=== PATIENT | female | born 1985 | race Caucasian/White ===

== ENCOUNTER 2024-04-04 08:30 | Outpatient (OUT) | payer OTHER, SELFPAY ==
[2024-04-04 08:53] LABS: Basophils Absolute Auto 0.1 10^3/uL (0.0-0.1); Basophils Percent Auto 1.1 % (0.2-2.0); Eosinophils Absolute Auto 0.3 10^3/uL (0.0-0.7); Eosinophils Percent Auto 4.8 % (0.9-7.0); Hematocrit 43.4 % (36.0-48.0); Hemoglobin 14.1 g/dL (12.0-16.0); Immature Granulocytes Abs Auto 0.02 10^3/uL (0.00-0.03); Immature Granulocytes Pct Auto 0.3 % (0.0-0.5); Lymphocytes Absolute Auto 2.2 10^3/uL (1.2-3.8); Lymphocytes Percent Auto 30.2 % (20.5-60.0); Mean Corpuscular HGB Conc 32.5 g/dL (29.9-35.2); Mean Corpuscular Hemoglobin 31.5 pg (26.7-34.0); Mean Corpuscular Volume 96.9 fL (81.0-99.0); Mean Platelet Volume 9.2 fL (9.5-13.5); Monocytes Absolute Auto 0.5 10^3/uL (0.3-0.8); Monocytes Percent Auto 6.7 % (1.7-12.0); Neutrophils Absolute Auto 4.1 10^3/uL (1.4-6.5); Neutrophils Percent Auto 56.9 % (43.0-75.0); Platelet Count 293 10^3/uL (150-450); Red Blood Count 4.48 10^6/uL (4.20-5.40); Red Cell Distribution Width 12.5 % (11.0-15.0); White Blood Count 7.2 10^3/uL (4.0-11.0)
[2024-04-04 09:08] LABS: Estimated Average Glucose 100 mg/dL; Glycohemoglobin A1C 5.1 % (4.5-6.2)
[2024-04-04 09:33] LABS: Alanine Aminotransferase 113 U/L (14-59); Albumin Globulin Ratio 0.9; Albumin Level 3.7 g/dL (3.4-5.0); Alkaline Phosphatase 92 U/L (46-116); Anion Gap 8.9; Aspartate Amino Transferase 41 U/L (15-37); BUN Creatinine Ratio 11.5; Bilirubin Total 0.5 mg/dL (0.2-1.0); Calcium 8.8 mg/dL (8.5-10.1); Carbon Dioxide 30.6 mmol/L (21.0-32.0); Chloride 103 mmol/L (98-107); Chol HDL Ratio 3.4; Cholesterol 200 mg/dL (<=200); Estimated GFR (African America >60 (>=60); Estimated GFR (Non-African Ame 59 (>=60); Free T3 2.41 pg/mL (2.18-3.98); Globulin 4.2 g/dL; Glucose 99 mg/dL (74-106); HDL Cholesterol 58 mg/dL (40-60); LDL Cholesterol Calculated 120.2 mg/dL; Potassium 4.5 mmol/L (3.5-5.1); Sodium 138 mmol/L (136-145); Thyroid Stimulating Hormone 0.961 uIU/mL (0.358-3.740); Total Protein 7.9 g/dL (6.4-8.2); Triglycerides 109 mg/dL (<=150); VLDL CHOLESTEROL 21.8 mg/dL
== END 2024-04-04 08:31 | disposition home or self-care (01) ==
PROVIDERS: PCP Family Medicine; Visit Provider Family Medicine
DX: Z00.00 Encounter for general adult medical examination without abnormal findings (principal)
CPT/HCPCS: 36415; 80053; 80061; 83036; 83540; 84436; 84443; 84481; 85025

== ENCOUNTER 2024-04-08 15:00 | Outpatient (REF) | payer OTHER, SELFPAY ==
[2024-04-09 16:22] LABS: Internal Control Within Normal Limits; Occult Blood Positive
== END 2024-04-08 15:01 | disposition home or self-care (01) ==
LOC: LAB 15:00
PROVIDERS: PCP Family Medicine; Visit Provider Family Medicine
DX: Z00.00 Encounter for general adult medical examination without abnormal findings (principal)
CPT/HCPCS: G0328

== ENCOUNTER 2024-04-11 09:09 | Outpatient (OUT) | payer OTHER, SELFPAY ==
--- OUTSIDE RECORDS SUMMARY | 2024-04-11 09:11 | XMS_ITS | CCD ---
Author Organization [facility] Care Team Providers Care Weight Shifter Name Role Phone INDIO, DR WESTBROOK Attending Unavailable HOY, DR WESTBROOK Admitting Unavailable HOY, DR WESTBROOK Primary Care Unavailable ASHOK CERVANTES Admitting Unavailable WEST, DR ELLEN Richards Consulting Unavailable ASHOK CERVANTES Attending Unavailable HOY, DR WESTBROOK Primary Care Unavailable BILLYASHOK Consulting Unavailable JESSICAY, DR WESTBROOK Attending Unavailable HOY, DR WESTBROOK Admitting Unavailable HOY, DR WESTBROOK Primary Care Unavailable HOY, DR WESTBROOK Consulting Unavailable HOY, DR WESTBROOK Attending Unavailable HOY, DR WESTBROOK Admitting Unavailable HOY, DR WESTBROOK Primary Care Unavailable HOY, DR WESTBROOK Consulting Unavailable HOY, DR WESTBROOK Attending Unavailable HOY, DR WESTBROOK Admitting Unavailable HOY, DR WESTBROOK Primary Care Unavailable HOY, DR WESTBROOK Consulting Unavailable HOY, DR WESTBROOK Attending Unavailable HOY, DR WESTBROOK Admitting Unavailable HOY, DR WESTBROOK Primary Care Unavailable WEST, DR ELLEN Richards Consulting Unavailable HOY, DR WESTBROOK Consulting Unavailable HOY, DR WESTBROOK Attending Unavailable HOY, DR WESTBROOK Admitting Unavailable HOY, DR WESTBROOK Primary Care Unavailable JAMIE, DR PHILIPP Jean Consulting Unavailable NOHEMY RAMIREZ, CALLIE F Referring Unavail able HOY, DARIANA M Primary Care Unavailable NOHEMY RAMIREZ, CALLIE F Attending Unavail able NOHEMY RAMIREZ, CALLIE F Referring Unavail able HOY, DARIAAN M Primary Care Unavailable HOY, DARIANA M Primary Care Unavailable NOHEMY RAMIREZ, CALLIE F Admitting Unavail able NOHEMY RAMIREZ, CALLIE F Attending Unavail able NOHEMY RAMIREZ, CALLIE F Referring Unavail able NOHEMY RAMIREZ, CALLIE F Referring Unavail able HOY, DARIANA M Primary Care Unavailable Allergies Allergy Classification Reported Allergen(s) Allergy Type Date of Onset Reaction(s) Facility (2 sources) Cefaclor Drug Allergy 01-21-2013 [facility] Repository (2 sources) celecoxib Drug Allergy 01-21-2013 [facility]ository (2 sources) Morphine Drug Allergy 02-13-2014 [facility] Repository (2 sources) Naproxen Drug Allergy 01-21-2013 [facility] Problems Active Problems Problem Classification Problem Date Documented Date Episodic/Chronic Abdominal pain (1 source) Pelvic and perineal pain; Translations: [Pelvic and perineal pain] Onset: 06-18-2023 Episodic Malaise and fatigue (4 sources) Other fatigue; Translations: [OTHER FATIGUE] Onset: 06-09-2022 Episodic Nausea and vomiting (1 source) Nausea; Translations: [Nausea] Onset: 06-18-2023 Episodic Other connective tissue disease (1 source) Pain in right arm; Translations: [PAIN IN RIGHT ARM] Onset: 04-20-2022 Episodic Other nervous system disorders (1 source) Other chronic pain; Translations: [Other chronic pain] Onset: 05-31-2023 Chronic Other nervous system disorders (1 source) Other acute postprocedural pain; Translations: [Other acute postprocedural pain] Onset: 05-31-2023 Episodic Other screening for suspected conditions (not mental disorders or infectious disease) (1 source) Abnormal results of liver function studies; Translations: [ABNORMAL RESULTS LIVR FUNCTION STDY] Onset: 06-13-2022 Episodic Spondylosis; intervertebral disc disorders; other back problems (4 sources) Radiculopathy, cervical region; Translations: [RADICULOPATHY CERVICAL REGION] Onset: 04-17-2022 Episodic Past or Other Problems Problem Classification Problem Date Documented Da te Episodic/Chronic E Codes: Natural/environment (1 source) Exposure to other specified factors, initial encounter; Translations: [EXPOSURE OTHER SPEC FACTORS INITIAL] Onset: 09-18-2021 Episodic E Codes: Unspecified (1 source) Activity, other specified; Translations: [ACTIVITY OTHER SPECIFIED] Onset: 09-18-2021 Episodic Other connective tissue disease (3 sources) Pain in left leg; Translations: [PAIN IN LEFT LEG] Onset: 09-16-2021 Episodic Sprains and strains (1 source) Strain of other muscle(s) and tendon(s) at lower leg level, left leg, initial encounter; Translations: [STRAIN OTH MSC TEND LOW LT LEG INIT] Onset: 09-18-2021 Episodic Superficial injury; contusion (1 source) Contusion of left lower leg, initial encounter; Translations: [CONTUSION LEFT LOWER LEG INITIAL] Onset: 09-18-2021 Episodic Results Test Name Value Interpretation Reference Range Facility CT PELVIS W CONTRASTon 07-04 CT PELVIS W CONTRAST EXAMINATION: CT OF THE PELVIS WITH CONTRAST 06/28/2023 5:26 pm TECHNIQUE: CT of the pelvis was performed with the administration of intravenous contrast. Multiplanar reformatted images are provided for review. Automated exposure control, iterative reconstruction, and/or weight based adjustment of the mA/kV was utilized to reduce the radiation dose to as low as reasonably achievable. COMPARISON: Ultrasound 05/14/2023. HISTORY ORDERING SYSTEM PROVIDED HISTORY: Pelvic pain TECHNOLOGIST PROVIDED HISTORY: STAT Creatinine as needed:->No pelvic pain Release to patient - Note: Delayed release will only apply to this order. Orders that are changed or resulted outside of the EHR will not respect a delayed release to MyChart.-> Recent right oophorectomy, history of prior hysterectomy and left oophorectomy. FINDINGS: Previous hysterectomy and recent right salpingo-oophorectomy . Minimal residual soft tissue stranding in the anterior abdominal wall from laparoscopic port sites. Tiny fat containing umbilical hernia. Evaluation of bowel is limited by lack of oral contrast. No CT evidence of appendicitis. No signs of bowel obstruction. Scattered nonenlarged lymph nodes without bulky adenopathy. Somewhat under distended urinary bladder at the time of scanning. There is no acute osseous abnormality. IMPRESSION: No acute abnormality identified in the pelvis. Interpreted by: Mahesh Esteban MD Kodali, Ravi P, MD Signed by: Mahesh Esteban MD 07/04/23 Final result Normal [facility] CBC with Diffon 06-18-2023 Abs. Basophil 0.08 k/uL Normal 0.00-0.20 [facility] Comment on above: Performed By: #### C DP, CP #### [facility] [address] [place] [address] Knee Bolter: Ellen Fregoso MD Abs.Imm.Granulocyte 0.05 k/uL Normal 0.00-0.30 [facility] Comment on above: Performed By: #### C DP, CP #### [address] [place], [place] [address] Knee Bolter: Ellen Fregoso MD Abs.Neutrophil (Seg) 5.11 k/uL Normal 1.50-8.10 [facility] Comment on above: Performed By: #### C DP, CP #### [address] [place], [place] [address] Knee Bolter: Ellen Fregoso MD Basophils/100 WBC (Bld) 1 % Normal 0-2 [facility] Comment on above: Performed By: #### C DP, CP #### [address] [place], [place] [address] Knee Bolter: Ellen Fregoso MD Eosinophils (Bld) [#/Vol] 0.51 10*3/uL High 0.00-0.44 [facility] Comment on above: Performed By: #### C DP, CP #### [address] [place], [place] [address] Knee Bolter: Ellen Fregoso MD Eosinophils/100 WBC (Bld) 6 % High 1-4 [facility] Comment on above: Performed By: #### C DP, CP #### [address] [place], [facility]83 Knee Bolter: Ellen Fregoso MD Erythrocyte distribution width (RBC) [Ratio] 12.0 % Normal 11.8-14.4 [facility] Comment on above: Performed By: #### C DP, CP #### [address] [place], [place] [address] Knee Bolter: Ellen Fregoso MD Hematocrit (Bld) [Volume fraction] 44.2 % Normal 36.3-47.1 [facility] Comment on above: Performed By: #### C DP, CP #### [address] [place], [facility]83 Knee Bolter: Ellen Fregoso MD Hemoglobin (Bld) [Mass/Vol] 14.4 g/dL Normal 11.9-15.1 [facility] Comment on above: Performed By: #### C DP, CP #### [facility] [address] [place], [place] [id number] Knee Bolter: Ellen Fregoso MD Immature granulocytes/100 WBC (Bld) 1 % High 0 [facility] Comment on above: Performed By: #### C DP, CP #### [address] [place] [address] Knee Bolter: Ellen Fregoso MD Lymphocytes (Bld) [#/Vol] 2.13 10*3/uL Normal 1.10-3.70 [facility] Comment on above: Performed By: #### C DP, CP #### [address] [place], [facility]83 Knee Bolter: Ellen Fregoso MD Lymphocytes/100 WBC (Bld) 25 % Normal 24-43 [facility] Comment on above: Performed By: #### C DP, CP #### [address] [place], [place] [id number] Knee Bolter: Ellen Fregoso MD MCH (RBC) [Entitic mass] 31.8 pg Normal 25.2-33.5 [facility] Comment on above: Performed By: #### C DP, CP #### [address] [place], [place] [id number] Knee Bolter: Ellen Fregoso MD MCHC (RBC) [Mass/Vol] 32.6 g/dL Normal 28.4-34.8 [facility] Comment on above: Performed By: #### C DP, CP #### [address] [place] [address] Knee Bolter: Ellen Fregoso MD MCV (RBC) [Entitic vol] 97.6 fL Normal 82.6-102.9 [facility] Comment on above: Performed By: #### C DP, CP #### [facility] [address] [place] [address] Knee Bolter: Ellen Fregoso MD Monocytes (Bld) [#/Vol] 0.64 10*3/uL Normal 0.10-1.20 [facility] Comment on above: Performed By: #### C DP, CP #### [address] [place], [place] [address] Knee Bolter: Ellen Fregoso MD Monocytes/100 WBC (Bld) 8 % Normal 3-12 [facility] Comment on above: Performed By: #### C DP, CP #### [address] [place], [facility]09 ( Knee Bolter: Ellen Fregoso MD Neutrophil (Seg) 59 % Normal 36-65 [facility] Comment on above: Performed By: #### C DP, CP #### [address] [place], [place] [address] Knee Bolter: Ellen Fregoso MD NRBC Automated 0.0 per 100 WBC Normal 0.0 [facility] Comment on above: Performed By: #### C DP, CP #### [address] [place], [place] [address] Knee Bolter: Ellen Fregoso MD Platelet mean volume (Bld) [Entitic vol] 9.0 fL Normal 8.1-13.5 [facility] Comment on above: Performed By: #### C DP, CP #### [address] [place] [address] Knee Bolter: Ellen Fregoso MD Platelets (Bld) [#/Vol] 334 10*3/uL Normal 138-453 [facility] Comment on above: Performed By: #### C DP, CP #### [facility] [address] [place], [place] [id number] Knee Bolter: Ellen Fregoso MD RBC (Bld) [#/Vol] 4.53 10*6/uL Normal 3.95-5.11 [facility] Comment on above: Performed By: #### C DP, CP #### [facility] [address] [place], [place] [phone] Knee Bolter: Ellen Fregoso MD WBC (Bld) [#/Vol] 8.5 10*3/uL Normal 3.5-11.3 [facility] Comment on above: Performed By: #### C DP, CP #### [address] [place], [place] [id number] Knee Bolter: Ellen Fregoso MD Comp Metabolic Profon 2022 Albumin [Mass/Vol] 4.3 g/dL Normal 3.5-5.2 [facility] Comment on above: Performed By: #### C DP, CP #### [address] [place], [place] [id number] Knee Bolter: Ellen Fregoso MD Albumin/Glob Ratio 1.3 Normal 1.0-2.5 [facility] Comment on above: Performed By: #### C DP, CP #### [address] [place], [place] 6[address]383 Knee Bolter: Ellne Fregoso MD Alkaline Phos 76 U/L Normal 35-104 [facility] Comment on above: Performed By: #### C DP, CP #### [facility] [address] [place], [place] 5598383 Knee Bolter: Ellen Fregoso MD ALT [Catalytic activity/Vol] 34 U/L High 5-33 [facility] Comment on above: Performed By: #### C DP, CP #### [facility] [address] [place], [place] [id number] Knee Bolter: Ellen Fregoso MD Anion gap [Moles/Vol] 11 mmol/L Normal 9-17 [facility] Comment on above: Performed By: #### C DP, CP #### [facility] [address] [place], [place] [phone] Knee Bolter: Ellen Fregoso MD AST [Catalytic activity/Vol] 24 U/L Normal <32 [facility] Comment on above: Performed By: #### C DP, CP #### [facility] [address] [place], [place] [address] Knee Bolter: Ellen Fregoso MD Bilirubin [Mass/Vol] 0.7 mg/dL Normal 0.3-1.2 [facility] Comment on above: Performed By: #### C DP, CP #### [facility] [address] [place], [place] [phone] Knee Bolter: Ellen Fregoso MD BUN/CRE Ratio 20 Normal 9-20 [facility] Comment on above: Performed By: #### C DP, CP #### [address] [place], [place] [address]83 Knee Bolter: Ellen Fregoso MD Calcium [Mass/Vol] 9.2 mg/dL Normal 8.6-10.4 [facility] Comment on above: Performed By: #### C DP, CP #### [facility] [address] [place], [place] [phone] Knee Bolter: Ellen Fregoso MD Chloride [Moles/Vol] 103 mmol/L Normal 98-107 [facility] Comment on above: Performed By: #### C DP, CP #### [facility] [address] [place], [place] [phone] Knee Bolter: Ellen Fregoso MD CO2 [Moles/Vol] 25 mmol/L Normal 20-31 [facility] Comment on above: Performed By: #### C DP, CP #### [facility] [address] [place] [address] Knee Bolter: Ellen Fregoso MD Creatinine [Mass/Vol] 0.7 mg/dL Normal 0.5-0.9 [facility] Comment on above: Performed By: #### C DP, CP #### [facility] [address] [place] [address] Knee Bolter: Ellen Fregoso MD GFR/1.73 sq M.predicted among non-blacks MDRD (S/P/Bld) [Vol rate/Area] mL/min/{1.73_m2} Normal >60 [facility] Comment on above: Result Comment: These results are not intended for use in patients <18 years of age. eGFR results are calculated without a race factor using the 2020 CKD-EPI equation. Careful clinical correlation is recommended, particularly when comparing to results calculated using previous equations. The CKD-EPI equation is less accurate in patients with extremes of muscle mass, extra-renal metabolism of creatine, excessive creatine ingestion, or following therapy that affects renal tubular secretion. Performed By: #### C DP, CP #### [facility] [address] [place] [address] [place] [address] Knee Bolter: Ellen Fregoso MD Glucose [Mass/Vol] 93 mg/dL Normal 70-99 [facility] Comment on above: Performed By: #### C DP, CP #### [facility] [address] [place] [address] Knee Bolter: Ellen Fregoso MD Potassium [Moles/Vol] 4.5 mmol/L Normal 3.7-5.3 [facility] Comment on above: Performed By: #### C DP, CP #### [facility] [address] [place] [address] Knee Bolter: Ellen Fregoso MD Protein [Mass/Vol] 7.6 g/dL Normal 6.4-8.3 [facility] Comment on above: Performed By: #### C DP, CP #### [facility] [address] [place], [place] [phone] Knee Bolter: Ellen Fregoso MD Sodium [Moles/Vol] 139 mmol/L Normal 135-144 [facility] Comment on above: Performed By: #### C DP, CP #### [facility] [address] [place], [place] [phone] Knee Bolter: Ellen Freogso MD Urea nitrogen [Mass/Vol] 14 mg/dL Normal 6-20 [facility] Comment on above: Performed By: #### C DP, CP #### [facility] [address] [place], [place] 9[address]83 Knee Bolter: Ellen Fregoso MD CBC with Diffon 06-12-2023 Abs. Basophil 0.10 k/uL Normal 0.00-0.20 [facility] Comment on above: Performed By: #### C DP, CP #### [facility] [address] [place] [address] Dr[place], [place] [phone] Knee Bolter: Ellen Fregoso MD Abs.Imm.Granulocyte 0.05 k/uL Normal 0.00-0.30 [facility] Comment on above: Performed By: #### C DP, CP #### [address] [place] [address] Knee Bolter: Ellen Fregoso MD Abs.Neutrophil (Seg) 5.13 k/uL Normal 1.50-8.10 [facility] Comment on above: Performed By: #### C DP, CP #### [facility] [address] [place], [place] [phone] Knee Bolter: Ellen Fregoso MD Basophils/100 WBC (Bld) 1 % Normal 0-2 [facility] Comment on above: Performed By: #### C DP, CP #### [facility] [address] [place], [place] [phone] Knee Bolter: Ellen Fregoso MD Eosinophils (Bld) [#/Vol] 0.42 10*3/uL Normal 0.00-0.44 [facility] Comment on above: Performed By: #### C DP, CP #### [address] [place], [place] [address]383 Knee Bolter: Ellen Fregoso MD Eosinophils/100 WBC (Bld) 5 % High 1-4 [facility] Comment on above: Performed By: #### C DP, CP #### [address] [place], [place] [address] Knee Bolter: Ellen Fregoso MD Erythrocyte distribution width (RBC) [Ratio] 11.8 % Normal 11.8-14.4 [facility] Comment on above: Performed By: #### C DP, CP #### [address] [place], [facility]83 Knee Bolter: Ellen Fregoso MD Hematocrit (Bld) [Volume fraction] 42.6 % Normal 36.3-47.1 [facility] Comment on above: Performed By: #### C DP, CP #### [address] [place], [place] [address] Knee Bolter: Ellen Fregoso MD Hemoglobin (Bld) [Mass/Vol] 13.8 g/dL Normal 11.9-15.1 [facility] Comment on above: Performed By: #### C DP, CP #### [address] [place], [facility]83 Knee Bolter: Ellen Fregoso MD Immature granulocytes/100 WBC (Bld) 1 % High 0 [facility] Comment on above: Performed By: #### C DP, CP #### [address] [place] [address] Knee Bolter: Ellen Fregoso MD Lymphocytes (Bld) [#/Vol] 2.82 10*3/uL Normal 1.10-3.70 [facility] Comment on above: Performed By: #### C DP, CP #### [facility] [address] [place], [place] [address] Knee Bolter: Ellen Fregoso MD Lymphocytes/100 WBC (Bld) 31 % Normal 24-43 [facility] Comment on above: Performed By: #### C DP, CP #### [address] [place], [place] [address] Knee Bolter: Ellen Fregoso MD MCH (RBC) [Entitic mass] 31.7 pg Normal 25.2-33.5 [facility] Comment on above: Performed By: #### C DP, CP #### [address] [place], [facility]41 ( Knee Bolter: Ellen Fregoso MD MCHC (RBC) [Mass/Vol] 32.4 g/dL Normal 28.4-34.8 [facility] Comment on above: Performed By: #### C DP, CP #### [address] [place], [place] [address] Knee Bolter: Ellen Fregoso MD MCV (RBC) [Entitic vol] 97.9 fL Normal 82.6-102.9 [facility] Comment on above: Performed By: #### C DP, CP #### [address] [place], [place] [address] Knee Bolter: Ellen Fregoso MD Monocytes (Bld) [#/Vol] 0.71 10*3/uL Normal 0.10-1.20 [facility] Comment on above: Performed By: #### C DP, CP #### [address] [place], [facility]83 Knee Bolter: Ellen Fregoso MD Monocytes/100 WBC (Bld) 8 % Normal 3-12 [facility] Comment on above: Performed By: #### C DP, CP #### [facility] [address] [place], [place] [phone] Knee Bolter: Ellen Fregoso MD Neutrophil (Seg) 54 % Normal 36-65 [facility] Comment on above: Performed By: #### C DP, CP #### [facility] [address] [place], [place] [phone] Knee Bolter: Ellen Fregoso MD NRBC Automated 0.0 per 100 WBC Normal 0.0 [facility] Comment on above: Performed By: #### C DP, CP #### [facility] [address] [place], [place] [phone] Knee Bolter: Ellen Fregoso MD Platelet mean volume (Bld) [Entitic vol] 9.6 fL Normal 8.1-13.5 [facility] Comment on above: Performed By: #### C DP, CP #### [address] [place], [place] 258[address]83 Knee Bolter: Ellen Fregoso MD Platelets (Bld) [#/Vol] 309 10*3/uL Normal 138-453 [facility] Comment on above: Performed By: #### C DP, CP #### [address] [place], [place] 040[address]83 Knee Bolter: Ellen Fregoso MD RBC (Bld) [#/Vol] 4.35 10*6/uL Normal 3.95-5.11 [facility] Comment on above: Performed By: #### C DP, CP #### [address] [place], [place] 03[address]83 Knee Bolter: Ellen Fregoso MD WBC (Bld) [#/Vol] 9.2 10*3/uL Normal 3.5-11.3 [facility] Comment on above: Performed By: #### C DP, CP #### [address] [place], [place] [phone] Knee Bolter: Ellen Fregoso MD Comp Metabolic Profon 2022 Albumin [Mass/Vol] 4.5 g/dL Normal 3.5-5.2 [facility] Comment on above: Performed By: #### C DP, CP #### [facility] [address] [place] [address] Knee Bolter: Ellen Fregoso MD Albumin/Glob Ratio 1.5 Normal 1.0-2.5 [facility] Comment on above: Performed By: #### C DP, CP #### [facility] [address] [place], [place] [phone] Knee Bolter: Ellen Fregoso MD Alkaline Phos 74 U/L Normal 35-104 [facility] Comment on above: Performed By: #### C DP, CP #### [facility] [address] [place], [place] 669[address]83 Knee Bolter: Ellen Fregoso MD ALT [Catalytic activity/Vol] 34 U/L High 5-33 [facility] Comment on above: Performed By: #### C DP, CP #### [facility] [address] [place] [address] [place] [place], [place] 565[address]83 Knee Bolter: Ellen Fregoso MD Anion gap [Moles/Vol] 9 mmol/L Normal 9-17 [facility] Comment on above: Performed By: #### C DP, CP #### [facility] [address] [place], [place] 347[address]83 Knee Bolter: Ellen Fregoso MD AST [Catalytic activity/Vol] 22 U/L Normal <32 [facility] Comment on above: Performed By: #### C DP, CP #### [facility] [address] [place], [place] 458[address]83 Knee Bolter: Ellen Fregoso MD Bilirubin [Mass/Vol] 0.5 mg/dL Normal 0.3-1.2 [facility] Comment on above: Performed By: #### C DP, CP #### [facility] [address] [place] [address] Knee Bolter: Ellen Fregoso MD BUN/CRE Ratio 20 Normal 9-20 [facility] Comment on above: Performed By: #### C DP, CP #### [facility] [address] [place], [place] [address] Knee Bolter: Ellen Fregoso MD Calcium [Mass/Vol] 9.1 mg/dL Normal 8.6-10.4 [facility] Comment on above: Performed By: #### C DP, CP #### [facility] [address] [place], [place] 284[address]83 Knee Bolter: Ellen Fregoso MD Chloride [Moles/Vol] 103 mmol/L Normal 98-107 [facility] Comment on above: Performed By: #### C DP, CP #### [facility] [address] [place], [place] [address]83 Knee Bolter: Ellen Fregoso MD CO2 [Moles/Vol] 26 mmol/L Normal 20-31 [facility] Comment on above: Performed By: #### C DP, CP #### [facility] [address] [place], [place] [address]83 Knee Bolter: Ellen Fregoso MD Creatinine [Mass/Vol] 0.7 mg/dL Normal 0.5-0.9 [facility] Comment on above: Performed By: #### C DP, CP #### [facility] [address] [place] [address] Knee Bolter: Ellen Fregoso MD GFR/1.73 sq M.predicted among non-blacks MDRD (S/P/Bld) [Vol rate/Area] mL/min/{1.73_m2} Normal >60 [facility] Comment on above: Result Comment: These results are not intended for use in patients <18 years of age. eGFR results are calculated without a race factor using the 2020 CKD-EPI equation. Careful clinical correlation is recommended, particularly when comparing to results calculated using previous equations. The CKD-EPI equation is less accurate in patients with extremes of muscle mass, extra-renal metabolism of creatine, excessive creatine ingestion, or following therapy that affects renal tubular secretion. Performed By: #### C DP, CP #### [facility] [address] [place] [address] [place]. [place], [place] [id number] Knee Bolter: Ellen Fregoso MD Glucose [Mass/Vol] 81 mg/dL Normal 70-99 [facility] Comment on above: Performed By: #### C DP, CP #### [address] [place] [address] Knee Bolter: Ellen Fregoso MD Potassium [Moles/Vol] 4.5 mmol/L Normal 3.7-5.3 [facility] Comment on above: Performed By: #### C DP, CP #### [address] [place] [address] Knee Bolter: Ellen Fregoso MD Protein [Mass/Vol] 7.5 g/dL Normal 6.4-8.3 [facility] Comment on above: Performed By: #### C DP, CP #### [address] [place], [place] [id number] Knee Bolter: Ellen Fregoso MD Sodium [Moles/Vol] 138 mmol/L Normal 135-144 [facility] Comment on above: Performed By: #### C DP, CP #### [facility] [address] [place] [address] [place] [address] Knee Bolter: Ellen Fregoso MD Urea nitrogen [Mass/Vol] 14 mg/dL Normal 6-20 [facility] Comment on above: Performed By: #### C DP, CP #### [address] [place], [place] [id number] Knee Bolter: Ellen Fregoso MD UA w/Reflex Cultureon 2022 Bilirubin, SemiQt,Ur Negative Normal NEG [facility] Comment on above: Performed By: #### U MICAO, UAX #### [facility] [address] [place], [place] [id number] Knee Bolter: Ellen Fregoso MD Blood, Urine Negative Normal NEG [facility] Comment on above: Performed By: #### U MICAO, UAX #### [facility] [address] [place], [place] [id number] Knee Bolter: Ellen Fregoso MD Clarity (U) Clear Normal CLEAR [facility] Comment on above: Performed By: #### U MICAO, UAX #### [facility] [address] [place] [address] Dr. [place], [place] [id number] Knee Bolter: Ellen Fregoso MD Color (U) Yellow Normal YEL [facility] Comment on above: Performed By: #### U MICAO, UAX #### [facility] [address] [place] [address] Dr. [place], [place] [id number] Knee Bolter: Ellen Fregoso MD Glucose Ql (U) Negative Normal NEG [facility] Comment on above: Performed By: #### U MICAO, UAX #### [address] [place] [address] Knee Bolter: Ellen Fregoso MD Ketones Ql (U) Negative Normal NEG [facility] Comment on above: Performed By: #### U MICAO, UAX #### [facility] [address] [place] [address] Dr. [place], [place] [id number] Knee Bolter: Ellen Fregoso MD Leukocyte esterase Test strip Ql (U) Negative Normal NEG [facility] Comment on above: Performed By: #### U MICAO, UAX #### [facility] [address] [place] [address] Dr. [place], [place] [id number] Knee Bolter: Ellen Fregoso MD Nitrite,Ur Negative Normal [facility] Comment on above: Performed By: #### U MICAO, UAX #### [facility] [address] [place], [place] [id number] Knee Bolter: Ellen Fregoso MD PH,Ur 6.0 Normal 5.0-9.0 [facility] Comment on above: Performed By: #### U MICAO, UAX #### [facility] [address] [place], [facility] Knee Bolter: Ellen Fregoso MD Protein Ql (U) Negative Normal NEG [facility] Comment on above: Performed By: #### U MICAO, UAX #### [facility] [address] [place], [facility]83 Knee Bolter: Ellen Fregoso MD Spec. [place],Ur 1.020 Normal 1.010-1.020 [facility] Comment on above: Performed By: #### U MICAO, UAX #### [facility] [address] [place] [address] Dr. [place], [facility]83 Knee Bolter: Ellen Fregoso MD Urobilinogen,Ur Normal Normal 0.0-1.0 [facility] Comment on above: Performed By: #### U MICAO, UAX #### [address] [place], [facility]83 Knee Bolter: Ellen Fregoso MD Urinalysis,Microon 3 Bacteria 1+ Abnormal NONE [facility] Comment on above: Performed By: #### U MICAO, UAX #### [facility] [address] [place] [address] Knee Bolter: Ellen Fregoso MD Epithelial cells LM Ql (Urine sed) 2 TO 5 Normal 0-25 [facility] Comment on above: Performed By: #### U MICAO, UAX #### [facility] [address] [place], [facility]83 Knee Bolter: Ellen Fregoso MD Mucus Strands TRACE Abnormal NONE [facility] Comment on above: Performed By: #### U MICAO, UAX #### [facility] [address] [place] [address] Knee Bolter: Ellen Fregoso MD Urine RBC's None Normal 0-2 [facility] Comment on above: Performed By: #### U MICAO, UAX #### [facility] [address] [place] [address] Knee Bolter: Ellen Fregoso MD Urine WBC's 0 TO 2 Normal 0-5 [facility] Comment on above: Performed By: #### U MICAO, UAX #### [facility] [address] 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 Chelsey Matos. 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 AND CYST Gross Description ELMER DURAN, RIGHT OVARY AND CYST Received in formalin are fragments of wrinkled pink-españa tissue consistent with ovary including cystic tissue, 7-grams and 4.5 x 3.8 x 1.5 cm in aggregate. External surfaces appear wrinkled and pink-españa with no excrescences. Sectioning reveals rubbery pink-españa cut surfaces and there are no excrescences in the cystic areas. Creative Services Manager sections are submitted in 3cs. cd LRD/kb2:05/31/2023 Microscopic Description 3 RAYSHAWN reviewed. Microscopic evaluation performed. Processing Lab: [address] [id number] Interpretation Performed at [facility] [address] [place] [address] SURGICAL PATHOLOGY CONSULTATION Patient Name: ELMER DURAN [facility] Rec: [id number] [facility] ANATOMIC PATHOLOGY [address] [place] [phone] Normal [facility] CBC AUTO DIFFon 06-09-2022 BASO # 0.1 103/ul Normal 0.0-0.1 [facility] Comment on above: Performed By: #### C BC #### [facility] [address] [address] [address] Valeria Stacy Basophils/100 WBC (Bld) 0.8 % Normal 0.2-2.0 [facility] Comment on above: Performed By: #### C BC #### [facility] [address] [place] [address] Dr. Valeria Stacy EO # 0.1 103/ul Normal 0.0-0.7 [facility] Comment on above: Performed By: #### C BC #### [facility] [address] [place] [address] Dr. Valeria Stacy Eosinophils/100 WBC (Bld) 0.9 % Normal 0.9-7.0 [facility] Comment on above: Performed By: #### C BC #### [facility] [address] [place] [address] Dr. Valeria Stacy Erythrocyte distribution width (RBC) [Ratio] 12.6 % Normal 11.0-15.0 [facility] Comment on above: Performed By: #### C BC #### [facility] [address] [place] [address] Dr. Valeria Stacy Hematocrit (Bld) [Volume fraction] 42.4 % Normal 36.0-48.0 [facility] Comment on above: Performed By: #### C BC #### [facility] [address] [place] [address] Dr. Valeria Stacy Hemoglobin (Bld) [Mass/Vol] 13.8 g/dL Normal 12.0-16.0 [facility] Comment on above: Performed By: #### C BC #### [facility] [address] [address] [address] Valeria Stacy IG # 0.10 10e3/ul Critically high 0.00-0.03 [facility] Comment on above: Performed By: #### C BC #### [facility] [address] [address] [address] Valeria Stacy IG % 0.9 % Critically high 0.0-0.5 [facility] Comment on above: Performed By: #### C BC #### [facility] [address] [address] [address] Valeria Stacy LYMPH # 2.3 103/ul Normal 1.2-3.8 [facility] Comment on above: Performed By: #### C BC #### [facility] [address] [place] [address] Dr. Valeria Stacy Lymphocytes/100 WBC (Bld) 20.2 % Critically low 20.5-60.0 [facility] Comment on above: Performed By: #### C BC #### [facility] [address] [place] [address] Dr. Valeria Stacy MANUAL DIFF REQ NO Normal [facility] Comment on above: Performed By: #### C BC #### [facility] [address] [place] [address] Dr. Valeria Stacy MCH (RBC) [Entitic mass] 31.2 pg Normal 26.7-34.0 [facility] Comment on above: Performed By: #### C BC #### [facility] [address] [place] [address] Dr. Valeria Stacy MCHC (RBC) [Mass/Vol] 32.5 g/dL Normal 29.9-35.2 [facility] Comment on above: Performed By: #### C BC #### [facility] [address] [place] [address] Dr. Valeria Stacy MCV (RBC) [Entitic vol] 95.7 fL Normal 81.0-99.0 [facility] Comment on above: Performed By: #### C BC #### [facility] [address] [place] [address] Dr. Valeria Stacy MONO # 0.7 103/ul Normal 0.3-0.8 [facility] Comment on above: Performed By: #### C BC #### [facility] [address] [place] [address] Dr. Valeria Stacy Monocytes/100 WBC (Bld) 6.2 % Normal 1.7-12.0 [facility] Comment on above: Performed By: #### C BC #### [facility] [address] [place] [address] Dr. Valeria tSacy NEUT # 8.2 103/ul Critically high 1.4-6.5 [facility] Comment on above: Performed By: #### C BC #### [facility] [address] [place] [address] Dr. Valeria Stacy Neutrophils/100 WBC (Bld) 71.0 % Normal 43.0-75.0 [facility] Comment on above: Performed By: #### C BC #### [facility] [address] [place] [address] Dr. Valeria Stacy Platelet mean volume (Bld) [Entitic vol] 8.5 fL Critically low 9.5-13.5 [facility] Comment on above: Performed By: #### C BC #### [facility] [address] [place] [address] Dr. Valeria Stacy PLT 344 103/ul Normal 150-450 [facility] Comment on above: Performed By: #### C BC #### [facility] [address] [place] [address] Dr. Valeria Stacy RBC 4.43 106/ul Normal 4.20-5.40 [facility] Comment on above: Performed By: #### C BC #### [facility] [address] [place] [address] Dr. Valeria Stacy WBC 11.5 103/ul Critically high 4.0-11.0 The [facility] Comment on above: Performed By: #### C BC #### [facility] [address] [place] [address] Dr. Valeria Stacy FREE T3on 06-09-2022 FREE T3 2.26 pg/mlL Normal 2.18-3.98 [facility] Comment on above: Performed By: #### F T3, CMP, TSH, T4 ####[facility] [address] [address]Dr. Valeria Stacy PROF 14(COMP METB)on 022 Albumin [Mass/Vol] 3.5 g/dL Normal 3.4-5.0 [facility] Comment on above: Performed By: #### F T3, CMP, TSH, T4 ####[facility] [address] [address]Dr. Valeria Stacy Albumin/Globulin [Mass ratio] 0.9 {ratio} Normal [facility] Comment on above: Performed By: #### F T3, CMP, TSH, T4 ####[facility] [address] [address]Dr. Valeria Stacy ALP [Catalytic activity/Vol] 83 U/L Normal 46-116 [facility] Comment on above: Performed By: #### F T3, CMP, TSH, T4 ####[facility] [address] [address]Dr. Valeria Stacy ALT [Catalytic activity/Vol] 59 U/L Normal 14-59 [facility] Comment on above: Performed By: #### F T3, CMP, TSH, T4 ####[facility] [address] [address]Dr. Valeria Stacy Anion gap [Moles/Vol] 11.7 mmol/L Normal [facility] Comment on above: Performed By: #### F T3, CMP, TSH, T4 ####[facility] [address] [address]Dr. Valeria Stacy AST [Catalytic activity/Vol] 22 U/L Normal 15-37 [facility] Comment on above: Performed By: #### F T3, CMP, TSH, T4 ####[facility] [address] [address]Dr. Valeria Stacy Bilirubin [Mass/Vol] 0.5 mg/dL Normal 0.2-1.0 [facility] Comment on above: Performed By: #### F T3, CMP, TSH, T4 ####[facility] [address] [address]Dr. Valeria Stacy Calcium [Mass/Vol] 9.1 mg/dL Normal 8.5-10.1 [facility] Comment on above: Performed By: #### F T3, CMP, TSH, T4 ####[facility] [address] [address]Dr. Valeria Stacy Chloride [Moles/Vol] 104 mmol/L Normal 98-107 [facility] Comment on above: Performed By: #### F T3, CMP, TSH, T4 ####[facility] [address] [place], [place] [address]Dr. Valeria Stacy CO2 [Moles/Vol] 26.4 mmol/L Normal 21.0-32.0 The [facility] Comment on above: Performed By: #### F T3, CMP, TSH, T4 ####[facility] [address] [place], [place] [address]Dr. Valeria Stacy Creatinine [Mass/Vol] 0.85 mg/dL Normal 0.55-1.02 [facility] Comment on above: Performed By: #### F T3, CMP, TSH, T4 ####[facility] [address] [address]Dr. Valeria Stacy EGFR-AF SOLOMON ISLANDER >60 Normal >=60 The [facility] Comment on above: Performed By: #### F T3, CMP, TSH, T4 ####[facility] [address] [address]Dr. Valeria Stacy EGFR-NON AF [place] ISLANDER >60 Normal >=60 [facility] Comment on above: Performed By: #### F T3, CMP, TSH, T4 ####[facility] [address] [address]Dr. Valeria Stacy Globulin (S) [Mass/Vol] 4.0 g/dL Normal [facility] Comment on above: Performed By: #### F T3, CMP, TSH, T4 ####[facility] [address] [id number]. Valeria Stacy Glucose [Mass/Vol] 85 mg/dL Normal 74-106 The [facility] Comment on above: Performed By: #### F T3, CMP, TSH, T4 ####[facility] [address] [address]Dr. Valeria Stacy Potassium [Moles/Vol] 4.1 mmol/L Normal 3.5-5.1 [facility] Comment on above: Performed By: #### F T3, CMP, TSH, T4 ####[facility] [address] [id number]. Valeria Stacy Protein [Mass/Vol] 7.5 g/dL Normal 6.4-8.2 [facility] Comment on above: Performed By: #### F T3, CMP, TSH, T4 ####[facility] [address] [address]Dr. Valeria Stacy Sodium [Moles/Vol] 138 mmol/L Normal 136-145 [facility] Comment on above: Performed By: #### F T3, CMP, TSH, T4 ####[facility] [address] [address]Dr. Valeria Stacy Urea nitrogen [Mass/Vol] 12.0 mg/dL Normal 7.0-18.0 [facility] Comment on above: Performed By: #### F T3, CMP, TSH, T4 ####[facility] [address] [address]Dr. Valeria Stacy Urea nitrogen/Creatinine [Mass ratio] 14.1 mg/mg Normal [facility] Comment on above: Performed By: #### F T3, CMP, TSH, T4 ####[facility] [address] [address]Dr. Valeria Stacy T4on 06-09-2022 T4 [Mass/Vol] 7.90 ug/dL Normal 4.80-13.90 The [facility] Comment on above: Performed By: #### F T3, CMP, TSH, T4 ####[facility] [address] [place], [place] [address]Dr. Valeria Stacy TSHon 06-09-2022 TSH 0.604 uIU/mL Normal 0.358-3.740 [facility] Comment on above: Performed By: #### F T3, CMP, TSH, T4 ####[facility] [address] [place], [place] [address]Ro. Valeria Stacy MRI CSPINE WO CONon 04-17-20 MRI CSPINE WO CON EXAMINATION: MRI CSPINE WO CON HISTORY: Cervical radiculopathy COMPARISON: No relevant comparison available. TECHNIQUE: A variety of imaging planes and parameters were utilized for visualization of suspected pathology. FINDINGS: CRANIOCERVICAL AREA: Normal foramen magnum with no Chiari malformation. PARASPINAL AREA: Normal with no visible mass. BONES: Normal alignment with no acute fracture or spondylolisthesis. CORD: Normal caliber, contour, and signal intensity. CERVICAL DISC LEVELS: C2-C3: No significant disc/facet abnormality, spinal stenosis, or foraminal stenosis. C3-C4: Early degenerative disc disease is present without focal protrusion or neural impingement. C4-C5: Early degenerative disc disease is present without focal protrusion or neural impingement. C5-C6: Early degenerative disc disease is present without focal protrusion or neural impingement. C6-C7: No significant disc/facet abnormality, spinal stenosis, or foraminal stenosis. C7-T1:. No significant disc/facet abnormality, spinal stenosis, or foraminal stenosis. IMPRESSION: Minimal discogenic changes at C3-4, C4-5 and C5-C6 with no central or foraminal stenosis Electronically authenticated by: ELLEN MENDEZ Date: 2022-04-17 19:34 Normal [facility] XR CSPINE MIN 4 VIEWSon 03-22 XR CSPINE MIN 4 VIEWS EXAMINATION: XR CSPINE MIN 4 VIEWS HISTORY: Cervical radiculopathy ; cervical pain radiating into right arm COMPARISON: No relevant comparison available. FINDINGS: BONES: No significant spondylosis, scoliosis, fracture, or visible bony lesion. DISC SPACES: No significant disc height narrowing, subluxation, or endplate abnormality. PARASPINOUS: Negative. No paraspinous abnormality is seen. OTHER: Negative. IMPRESSION: 1. No appreciable acute abnormality or significant degenerative changes. 2. Examination of the lower cervical spine is slightly limited by body habitus. Electronically authenticated by: PHILIPP AYALA Date: 2022-04-05 07:06 Normal [facility] INSULINon 02-19-2022 Insulin 30.3 uIU/mL Critically high 2.6-24.9 The [facility] Comment on above: Performed By: #### I NSULIN ####[facility] [address] [address]Dr. Valeria Stacy CBC AUTO DIFFon 02-17-2022 BASO # 0.1 103/ul Normal 0.0-0.1 [facility] Comment on above: Performed By: #### C BC ####[facility] [address] [address]Dr. Valeria Stacy Basophils/100 WBC (Bld) 1.2 % Normal 0.2-2.0 [facility] Comment on above: Performed By: #### C BC ####[facility] [address] [place], [place] [address]Dr. Valeria Stacy EO # 0.5 103/ul Normal 0.0-0.7 [facility] Comment on above: Performed By: #### C BC ####[facility] [address] [place], [place] [address]Dr. Valeria Stacy Eosinophils/100 WBC (Bld) 6.6 % Normal 0.9-7.0 [facility] Comment on above: Performed By: #### C BC ####[facility] [address] [place], [place] [address]Dr. Valeria Stacy Erythrocyte distribution width (RBC) [Ratio] 12.6 % Normal 11.0-15.0 [facility] Comment on above: Performed By: #### C BC ####[facility] [address] [place], [place] [address]DrSvitlana Stacy Hematocrit (Bld) [Volume fraction] 41.8 % Normal 36.0-48.0 [facility] Comment on above: Performed By: #### C BC ####[facility] [address] [place], [place] [address]Dr. Valeria Stacy Hemoglobin (Bld) [Mass/Vol] 13.7 g/dL Normal 12.0-16.0 [facility] Comment on above: Performed By: #### C BC ####[facility] [address] [address]Dr. Valeria Stacy IG # 0.03 10e3/ul Normal 0.00-0.03 [facility] Comment on above: Performed By: #### C BC ####[facility] [address] [address]Dr. Valeria Stacy IG % 0.4 % Normal 0.0-0.5 [facility] Comment on above: Performed By: #### C BC ####[facility] [address] [place], [place] [address]Dr. Valeria Stacy LYMPH # 3.1 103/ul Normal 1.2-3.8 [facility] Comment on above: Performed By: #### C BC ####[facility] [address] [place], [place] [address]Dr. Valeria Stacy Lymphocytes/100 WBC (Bld) 38.7 % Normal 20.5-60.0 [facility] Comment on above: Performed By: #### C BC ####[facility] [address] [address]Dr. Valeria Stacy MANUAL DIFF REQ NO Normal [facility] Comment on above: Performed By: #### C BC ####[facility] [address] [address]Dr. Valeria Stacy MCH (RBC) [Entitic mass] 31.2 pg Normal 26.7-34.0 [facility] Comment on above: Performed By: #### C BC ####[facility] [address] [place], [place] [address]Dr. Valeria Stacy MCHC (RBC) [Mass/Vol] 32.8 g/dL Normal 29.9-35.2 [facility] Comment on above: Performed By: #### C BC ####[facility] [address] [address]Dr. Valeria Stacy MCV (RBC) [Entitic vol] 95.2 fL Normal 81.0-99.0 [facility] Comment on above: Performed By: #### C BC ####[facility] [address] [id number]. Valeria Stacy MONO # 0.7 103/ul Normal 0.3-0.8 [facility] Comment on above: Performed By: #### C BC ####[facility] [address] [id number]. Valeria Stacy Monocytes/100 WBC (Bld) 8.6 % Normal 1.7-12.0 [facility] Comment on above: Performed By: #### C BC ####[facility] [address] [place], [place] [id number]. Valeria Stacy NEUT # 3.6 103/ul Normal 1.4-6.5 [facility] Comment on above: Performed By: #### C BC ####[facility] [address] [place], [place] [address]Dr. Valeria Stacy Neutrophils/100 WBC (Bld) 44.5 % Normal 43.0-75.0 [facility] Comment on above: Performed By: #### C BC ####[facility] [address] [place], [place] [id number]. Valeria Stacy Platelet mean volume (Bld) [Entitic vol] 8.6 fL Critically low 9.5-13.5 [facility] Comment on above: Performed By: #### C BC ####[facility] [address] [place] [id number]. Valeria Stacy PLT 325 103/ul Normal 150-450 [facility] Comment on above: Performed By: #### C BC ####[facility] [address] [place], [place] [id number]. Valeria Stacy RBC 4.39 106/ul Normal 4.20-5.40 [facility] Comment on above: Performed By: #### C BC ####[facility] [address] [place] [id number]. Valeria Stacy WBC 8.0 103/ul Normal 4.0-11.0 [facility] Comment on above: Performed By: #### C BC ####[facility] [address] [place] [address]Dr. Valeria Stacy FREE THYROXINE INDEX T7on FTI 2.26 Normal 1.30-4.50 [facility] Comment on above: Performed By: #### L IPID, T7, CMP, TSH #### [facility] [address] [address] [address] Valeria Stacy T3U 31.0 % Normal 30.0-39.0 [facility] Comment on above: Performed By: #### L IPID, T7, CMP, TSH #### [facility] [address] [address] [address] Valeria Stacy T4 [Mass/Vol] 7.30 ug/dL Normal 4.80-13.90 [facility] Comment on above: Performed By: #### L IPID, T7, CMP, TSH #### [facility] [address] [place] [address] Dr. Valeria Stacy GLYCOHEMOGLOBIN A1Con 2021 ADA RECOMMENDATION SEE BELOW Normal [facility] Comment on above: Result Comment: ADA RECOMMENDED LIMIT 4.0 - 6.0 ADA THERAPEUTIC TARGET < 7.0 ACTION SUGGESTED > 7.0 Performed By: #### A 1C #### [facility] [address] [place] [address] Dr. Valeria Stacy Glucose [Mass/Vol] 111 mg/dL Normal [facility] Comment on above: Performed By: #### A 1C #### [facility] [address] [place] [address] Dr. Valeria Stacy HbA1c (Bld) [Mass fraction] 5.5 % Normal 4.5-6.2 [facility] Comment on above: Performed By: #### A 1C #### [facility] [address] [place] [address] Dr. Valeria Stacy IRONon 02-17-2022 Iron [Mass/Vol] 114.0 ug/dL Normal 50.0-170.0 [facility] Comment on above: Performed By: #### I ROWENA #### [facility] [address] [address] [address] Valeria Stacy LIPID PROFILEon 02-17-2022 CHOL-HDL RATIO NORM SEE BELOW Normal [facility] Comment on above: Result Comment: 3.3 - 4.4 LOW RISK 4.4 - 7.1 AVERAGE RISK 7.1 - 11.0 MODERATE RISK >11.0 HIGH RISK Performed By: #### L IPID, T7, CMP, TSH #### [facility] [address] [address] [address] Valeria Stacy Cholesterol [Mass/Vol] 175 mg/dL Normal <=200 [facility] Comment on above: Performed By: #### L IPID, T7, CMP, TSH #### [facility] [address] [address] [address] Valeria Stacy Cholesterol in HDL [Mass/Vol] 45 mg/dL Normal 40-60 [facility] Comment on above: Performed By: #### L IPID, T7, CMP, TSH #### [facility] [address] [address] [address] Valeria Stacy Cholesterol in LDL [Mass/Vol] 89.0 mg/dL Normal [facility] Comment on above: Performed By: #### L IPID, T7, CMP, TSH #### [facility] [address] [address] [address] Valeria Stacy Cholesterol.total/Cho lesterol in HDL [Mass ratio] 3.9 {ratio} Normal [facility] Comment on above: Performed By: #### L IPID, T7, CMP, TSH #### [facility] [address] [address] [address] Valeria Stacy HDL NORMAL > or = 60 mg/dl - LO W CARDIOVASCULAR RISK <40 mg/dl - HIGH CARDIOVASCULAR RISK Normal [facility] Comment on above: Performed By: #### L IPID, T7, CMP, TSH #### [facility] [address] [address] [address] Valeria Stacy LDL CALC NORMAL SEE BELOW Normal [facility] Comment on above: Result Comment: <100 mg/dl OPTIMAL 100 - 129 mg/dl NEAR OR ABOVE OPTIMAL 130 - 159 mg/dl BORDERLINE HIGH 160 - 189 mg/dl HIGH >190 mg/dl VERY HIGH Performed By: #### L IPID, T7, CMP, TSH #### [facility] [address] [address] [address] Valeria Stacy Triglyceride [Mass/Vol] 205 mg/dL Critically high <=150 [facility] Comment on above: Performed By: #### L IPID, T7, CMP, TSH #### [facility] [address] [address] [address] Valeria Stacy VLDL CALC 41.0 mg/dL Normal [facility] Comment on above: Performed By: #### L IPID, T7, CMP, TSH #### [facility] [address] [address] [address] Valeria Stacy PROF 14(COMP METB)on 022 Albumin [Mass/Vol] 3.6 g/dL Normal 3.4-5.0 [facility] Comment on above: Performed By: #### L IPID, T7, CMP, TSH #### [facility] [address] [address] [address] Valeria Stacy Albumin/Globulin [Mass ratio] 0.8 {ratio} Normal [facility] Comment on above: Performed By: #### L IPID, T7, CMP, TSH #### [facility] [address] [place] [address] Dr. Valeria Stacy ALP [Catalytic activity/Vol] 73 U/L Normal 46-116 [facility] Comment on above: Performed By: #### L IPID, T7, CMP, TSH #### [facility] [address] [address] [address] Valeria Stacy ALT [Catalytic activity/Vol] 115 U/L Critically high 14-59 [facility] Comment on above: Performed By: #### L IPID, T7, CMP, TSH #### [facility] [address] [address] [address] Valeria Stacy Anion gap [Moles/Vol] 12.1 mmol/L [facility] Comment on above: Performed By: #### L IPID, T7, CMP, TSH #### [facility] [address] [place] [address] Dr. Valeria Stacy AST [Catalytic activity/Vol] 36 U/L Normal 15-37 [facility] Comment on above: Performed By: #### L IPID, T7, CMP, TSH #### [facility] [address] [place] [address] Dr. Valeria Stacy Bilirubin [Mass/Vol] 0.6 mg/dL Normal 0.2-1.0 [facility] Comment on above: Performed By: #### L IPID, T7, CMP, TSH #### [facility] [address] [place] [address] Dr. Valeria Stacy Calcium [Mass/Vol] 8.6 mg/dL Normal 8.5-10.1 [facility] Comment on above: Performed By: #### L IPID, T7, CMP, TSH #### [facility] [address] [place] [address] Dr. Valeria Stacy Chloride [Moles/Vol] 107 mmol/L Normal 98-107 [facility] Comment on above: Performed By: #### L IPID, T7, CMP, TSH #### [facility] [address] [place] [address] Dr. Valeria Stacy CO2 [Moles/Vol] 24.9 mmol/L Normal 21.0-32.0 The [facility] Comment on above: Performed By: #### L IPID, T7, CMP, TSH #### [facility] [address] [place] [address] Dr. Valeria Stacy Creatinine [Mass/Vol] 0.93 mg/dL Normal 0.55-1.02 [facility] Comment on above: Performed By: #### L IPID, T7, CMP, TSH #### [facility] [address] [place] [address] Dr. Valeria Stacy EGFR-AF [place] >60 Normal >=60 The [facility] Comment on above: Performed By: #### L IPID, T7, CMP, TSH #### [facility] [address] [place] [address] Dr. Valeria Stacy EGFR-NON AF [place] >60 Normal >=60 [facility] Comment on above: Performed By: #### L IPID, T7, CMP, TSH #### [facility] [address] [address] [address] Valeria Stacy Globulin (S) [Mass/Vol] 4.4 g/dL Normal [facility] Comment on above: Performed By: #### L IPID, T7, CMP, TSH #### [facility] [address] [address] [address] Valeria Stacy Glucose [Mass/Vol] 89 mg/dL Normal 74-106 [facility] Comment on above: Performed By: #### L IPID, T7, CMP, TSH #### [facility] [address] [address] [address] Valeria Stacy Potassium [Moles/Vol] 4.0 mmol/L Normal 3.5-5.1 [facility] Comment on above: Performed By: #### L IPID, T7, CMP, TSH #### [facility] [address] [place] [address] Dr. Valeria Stacy Protein [Mass/Vol] 8.0 g/dL Normal 6.4-8.2 [facility] Comment on above: Performed By: #### L IPID, T7, CMP, TSH #### [facility] [address] [address] [address] Valeria Stacy Sodium [Moles/Vol] 140 mmol/L Normal 136-145 [facility] Comment on above: Performed By: #### L IPID, T7, CMP, TSH #### [facility] [address] [address] [address] Valeria Stacy Urea nitrogen [Mass/Vol] 8.0 mg/dL Normal 7.0-18.0 [facility] Comment on above: Performed By: #### L IPID, T7, CMP, TSH #### [facility] [address] [address] [address] Valeria Stacy Urea nitrogen/Creatinine [Mass ratio] 8.6 mg/mg Normal [facility] Comment on above: Performed By: #### L IPID, T7, CMP, TSH #### [facility] [address] [place], [place] [address] Dr. Valeria Stacy TSHon 02-17-2022 TSH 0.897 uIU/mL Normal 0.358-3.740 [facility] Comment on above: Performed By: #### L IPID, T7, CMP, TSH #### [facility] [address] [place], [place] [address] Dr. Valeria Stacy US KAYLA DOP LEG LTon 09-16-19 US KAYLA DOP LEG LT EXAMINATION: US KAYLA DOP LEG LT HISTORY: pain COMPARISON: No relevant comparison available. TECHNIQUE: Grayscale, color and Doppler ultrasound FINDINGS: Region: Left leg Thrombus: None Compressibility: Normal Flow: Normal Augmentation: Normal Identified in the medial left calf in the area the patient's pain is a 3.2 x 0.8 x 0.7 cm area of heterogeneous hypoechogenicity this appears to be within the muscle IMPRESSION: No deep vein thrombus in the left leg Heterogeneous muscle hypoechogenicity corresponding to the patient's pain. In light of the patient's bruising, this could represent an intramuscular hematoma but is indeterminate by ultrasound. *Exam performed in accordance with [facility] practice guidelines- Peripheral venous ultrasound, October 15, 2009. Electronically authenticated by: ELLEN MENDEZ Date: 2021-09-16 11:37 Normal [facility] - Toxicology Resultson 0 08-04-2018 Lab - Toxicology Results [id number] Normal [facility] Encounters Encounter Date Encounter Type Care Provider Facility Start: 06-28-2023 End: 07-01-2023 ambulatory [facility] Start: 06-18-2023 End: 06-19-2023 ambulatory [facility] Start: 06-12-2023 End: 06-13-2023 ambulatory [facility] Start: 05-31-2023 End: 05-31-2023 ambulatory DARIANA BORJAS [facility] Start: 06-09-2022 End: 06-10-[address] DARIANA BORJAS Facility:[facility] Start: 04-17-2022 End: 04-18-[address] DARIANA BORJAS Facility:[facility] Start: 04-16-2022 End: 05-29-[address] DARIANA BORJAS Facility:[facility] Start: 04-04-2022 End: 04-05-[address] DARIANA BORJAS Facility:[facility] Start: 02-22-2022 Encounter for genera l adult medical examination without abnormal findings DR DARIANA BORJAS [facility] Start: 02-17-2022 End: 02-18-[address] DARIANA BORJAS Facility:[facility] Start: 02-17-2022 End: 02-18-2022 Encounter for general adult medical examination without abnormal findings DR DARIANA BORJAS Facility:[facility] Start: 09-16-2021 End: 09-16-2021 ambulatory ASHOK CERVANTES Facility:[facility] Start: 08-02-[address] DARIANA BORJAS Facility :[facility] Payers Date Payer Category Payer Unknown [id number] 1985 Unknown [id number] 2.16.84 [id number] 1984 Unknown [id number] 2.16.84 [id number] 1984 Unknown [id number] 2.16.84 [id number] 1984 Unknown [id number] 2.16.84 [id number] 1984 Unknown [id number] 2.16.84 [id number] 1984 Unknown [id number] 2.16.84 [id number] 1984 Unknown [id number] 2.16.84 [id number] 1984 Unknown [id number] 2.16.8 [id number] 1984 Unknown [id number] 2.16.8 [id number] 1984 Unknown [id number] 2.16.8 [id number] 1984 Unknown [id number] 2.16.8 [id number] 1959 Self-pay [id number] 1960 Unknown [id number] Summary Purpose Family History No Family History Records FoundNo Family History Records FoundNo Family History Records Found Advance Directives No Advanced Directives Records FoundNo Advanced Directives Records FoundNo Advanced Directives Records Found Additional Source Comments INFORMATION SOURCE (unrecogn ized section and content) DATE CREATED AUTHOR 03/04/2019 [facility] DATE CREATED AUTHOR AUTHOR'S ORGANIZ ATION 07/17/2022 [facility] DATE CREATED AUTHOR AUTHOR'S ORGANIZ ATION 07/06/2023 [facility] FOR RECORDS PERTAINING TO PATIENTS WHO ARE OR HAVE BEEN ENROLLED IN A CHEMICAL DEPENDENCY/SUBSTANCEABUSE PROGRAM, SOME INFORMATION MAY BE OMITTED. This clinical summary was aggregated from multiple sources. Caution should be exercised in using it in the provision of clinical care. This summary normalizes information from multiple sources, and as a consequence, information in this document may materially change the coding, format and clinical context of patient data. In addition, data may be omitted in some cases. CLINICAL DECISIONS SHOULD BE BASED ON THE PRIMARY CLINICAL RECORDS. [facility]. provides no warranty or guarantee of the accuracy or completeness of information in this document.
--- NOTE | 2024-04-11 09:48 | US_ITS ---
The [address] [address] Patient Name: ELMER DURAN MRN: [id number] date: 1985 Sex: F Assigned Patient Location: US Current Patient Location: Accession/Order Number: [id number] Exam Date: 04/11/2024 09:55 Report Date: 04/14/2024 07:30 At the request of: DARIANA BORJAS Procedure: US right upper quadrant EXAMINATION: US right upper quadrant HISTORY: ELEVATED LIVER FUNCTION TESTS R79.89 COMPARISON: No relevant comparison available. TECHNIQUE: Transabdominal evaluation of the right upper quadrant. FINDINGS: LIVER: Small, subtle hypoechoic area adjacent to gallbladder fossa likely representing fatty changes. Otherwise normal size and echotexture. Color Doppler demonstrates patent hepatic veins. PORTAL VEIN: Duplex Doppler demonstrates normal hepatopetal flow pattern with flow velocity averaging 41 cm/s. GALLBLADDER: No visible gallstones, wall thickening, or pericholecystic free fluid. Negative sonographic Li's sign. BILIARY: No abnormal dilation or stones. Common bile duct diameter is within normal limits. PANCREAS: No visible mass, abnormal atrophy, or duct dilation. KIDNEY: Benign-appearing 9 mm cyst within superior pole. No hydronephrosis. No visible mass or stones. Size: 10.9 x 6.7 x 5.8 cm US/US right upper quadrant IMPRESSION: 1. No suspicious findings to account for patient's symptoms. Electronically authenticated by: PHILIPP AYALA Date: 04/14/2024 07:30
[2024-04-11 10:03] LABS: Alanine Aminotransferase 136 U/L (14-59); Albumin Globulin Ratio 0.9; Albumin Level 3.7 g/dL (3.4-5.0); Alkaline Phosphatase 93 U/L (46-116); Aspartate Amino Transferase 63 U/L (15-37); BUN Creatinine Ratio 10.8; Bilirubin Total 1.4 mg/dL (0.2-1.0); Calcium 9.5 mg/dL (8.5-10.1); Carbon Dioxide 28.1 mmol/L (21.0-32.0); Chloride 102 mmol/L (98-107); Estimated GFR (African America >60 (>=60); Estimated GFR (Non-African Ame >60 (>=60); Glucose 92 mg/dL (74-106); Potassium 4.1 mmol/L (3.5-5.1); Sodium 138 mmol/L (136-145); Total Protein 7.7 g/dL (6.4-8.2)
[2024-04-12 11:07] LABS: HBsAg Screen Negative (Negative); HCV Ab Non Reactive (Non Reactive); Hep A Ab, IgM Negative (Negative); Hep B Core Ab, IgM Negative (Negative)
== END 2024-04-11 09:10 | disposition home or self-care (01) ==
PROVIDERS: PCP Family Medicine; Visit Provider Family Medicine
DX: R79.89 Other specified abnormal findings of blood chemistry (principal); N28.1 Cyst of kidney, acquired
CPT/HCPCS: 36415; 76705; 80053; 80074

== ENCOUNTER 2024-05-08 14:47 | Outpatient (OUT) | payer OTHER, SELFPAY ==
--- OUTSIDE RECORDS SUMMARY | 2024-05-08 14:52 | XMS_ITS | CCD ---
Author Organization [facility] Care Team Providers Care Extension Work Director Name Role Phone DR DARIANA PAGE Attending Unavailable HOY, DR WESTBROOK Admitting Unavailable HOY, DR WESTBROOK Primary Care Unavailable ASHOK CERVANTES Admitting Unavailable WEST, DR ELLEN Richards Consulting Unavailable ASHOK CERVANTES Attending Unavailable HOY, DR WESTBROOK Primary Care Unavailable ASHOK CERVANTES Consulting Unavailable JESSICAY, DR WESTBROOK Attending Unavailable [...] Care Unavailable HOY, DR WESTBROOK Consulting Unavailable JESSICAY, DR WESTBROOK Attending Unavailable HOY, DR WESTBROOK Admitting Unavailable HOY, DR WESTBROOK Primary Care Unavailable WEST, DR ELLEN Richards Consulting Unavailable HOY, DR WESTBROOK Consulting Unavailable JESSICAY, DR WESTBROOK Attending Unavailable HOY, DR WESTBROOK Admitting Unavailable HOY, DR WESTBROOK Primary Care Unavailable JAMIE, DR PHILIPP Jean Consulting Unavailable NOHEMY CALLIE RAMIREZ Referring Unavail able HOY, DARIANA M Primary Care Unavailable NOHEMYCALLIE WEBSTER F Attending Unavail able NOHEMY CALLIE RAMIREZ F Referring Unavail able HOY, DARIANA M Primary Care Unavailable HOY, DARIANA M Primary Care Unavailable NOHEMYCALLIE WEBSTER F Admitting Unavail able NOHEMYCALLIE WEBSTER F Attending Unavail able NOHEMYCALLIE WEBSTRE F Referring Unavail able NOHEMY CALLIE RAMIREZ F Referring Unavail able HOY, DARIANA M Primary Care Unavailable Dariana Page Primary Care Physician Van SEAMAN Attending Unavailable JessicaDariana alexander Referring Unavailable NILVan Jamison Attending Unavailable Van SEAMAN Referring Unavailable NILLVan Admitting Unavailable NILLVan Attending Unavailable Allergies Allergy Classification Reported Allergen(s) Allergy Type Date of Onset Reaction(s) Facility (3 sources) Cefaclor; Translations: [Ceclor] Drug Allergy 3 [facility] Repository (3 sources) celecoxib; Translations: [CeleBREX] Drug Allergy 3 [facility] Repository (3 sources) Morphine; Translations: [morphine] Drug Allergy 4 [facility] Repository (3 sources) Naproxen; Translations: [Aleve] Drug Allergy 3 [facility] Repository (2 sources) Cefaclor; Translations: [cefaclor] Drug Allergy Weal (disorder) [facility] (2 sources) celecoxib; Translations: [celecoxib] Drug Allergy Weal (disorder) [facility] (3 sources) Cephalexin; Translations: [cephalexin] Drug Allergy Anaphylaxis (disorder) [facility] (2 sources) Morphine; Translations: [morphine] Drug Allergy Anaphylaxis (disorder) [facility] (2 sources) Naproxen; Translations: [naproxen] Drug Allergy Nausea and vomiting (disorder) [facility] Medications Current Medications Medication Drug Class(es) Dates Sig (Normalized) Sig (Original) 0.5 ML semaglutide 1 MG/ML Auto-Injector (2 sources) Start: 04-15-2024 inject 0.5 mg by subcutaneous injection every week semaglutide 0.5 mg/0.5 mL (0.5 mg dose) subcutaneous solution 0.5 mg, SubCutaneous, qWeek, Refills(s) 0 Start Date: 04/15/24 Status: Ordered Fioricet (2 sources) Barbiturate, Central Nervous System Stimulant, Methylxanthine Start: 04-23-2024 take 1 tablet by mouth every four hours Fioricet 1 tab(s), Oral, q4hr Headache, Refill(s) 0 Start Date: 04/23/24 Status: Ordered diclofenac sodium 75 mg delayed release oral tablet (2 sources) Nonsteroidal Anti-inflammatory Drug Start: 04-15-2024 take 1 tablet by mouth once daily at bedtime as needed diclofenac sodium 75 mg Oral EC Tab 75 mg = 1 tab(s), Oral, Once a day (at bedtime), PRN Inflammation, Refills(s) 0 Start Date: 04/15/24 Status: Ordered Start: 04-15-2024 take 1 tablet by isael th twice daily diclofenac sodium 75 mg Oral EC Tab 75 mg = 1 tab(s), Oral, BID, Refills(s) 0 Start Date: 04/15/24 Status: Ordered Evamist (2 sources) Estrogen Start: 04-23-2024 Evamist = 1 spray(s), TransDermal, Daily, Refills(s) 0 Start Date: 04/23/24 Status: Ordered pantoprazole 40 mg delayed release oral tablet (2 sources) Proton Pump Inhibitor Start: 04-15-2024 take 1 tablet by mouth once daily Protonix 40 mg Tab-DR 40 mg = 1 tab(s), Oral, Daily, Refills(s) 0 Start Date: 04/15/24 Status: Ordered sucralfate 1000 mg oral tablet (1 source) Aluminum Complex Start: 05-04-2024 take 1 tablet by mouth four times daily Carafate 1 gram Tab 1 gm = 1 tab(s), Oral, QID, # 120 tab(s), Refills(s) 3, Pharmacy: [facility]/pharmacy #[id number], 167.6, cm, 05/04/24 9:41:00 EDT, Height/Length Dosing, 90.8, kg, 05/04/24 9:41:00 EDT, Weight Dosing Start Date: 05/04/24 Status: Ordered tiZANidine 4 mg oral tablet (2 sources) Central alpha-2 Adrenergic Agonist Start: 04-15-2024 take 2 tablets by mouth at bedtime tiZANidine 4 mg Tab 8 mg = 2 tab(s), Oral, Bedtime, Refills(s) 0 Start Date: 04/15/24 Status: Ordered Problems Active Problems Problem Classification Problem Date Documented Da te Episodic/Chronic Abdominal hernia (1 source) Diaphragmatic hernia; Translations: [Diaphragmatic hernia without obstruction or gangrene] Onset: 10-14-202 4 Episodic Abdominal pain (4 sources) Pelvic and perineal pain; Translations: [Epigastric pain] Onset: 3 Episodic Esophageal disorders (1 source) Gastroesophageal reflux disease without esophagitis; Translations: [Gastro-esophageal reflux disease without esophagitis] Onset: 4 Chronic Gastritis and duodenitis (1 source) Chronic gastritis; Translations: [Unspecified chronic gastritis without bleeding] Onset: 4 Chronic Gastritis and duodenitis (1 source) Gastritis; Translations: [Other gastritis without bleeding] Onset: 4 Episodic Headache; including migraine (2 sources) Migraine 04-15-2024 Chronic Malaise and fatigue (4 sources) Other fatigue; Translations: [OTHER FATIGUE] Onset: 2 Episodic Nausea and vomiting (4 sources) Nausea; Translations: [Nausea and vomiting] Onset: 3 Episodic Other connective tissue disease (1 source) Pain in right arm; Translations: [PAIN IN RIGHT ARM] Onset: 2 Episodic Other gastrointestinal disorders (1 source) Abnormal feces; Translations: [Other fecal abnormalities] Onset: 4 Episodic Other gastrointestinal disorders (1 source) Digestive system finding; Translations: [Other specified symptoms and signs involving the digestive system and abdomen] Onset: 4 Episodic Other gastrointestinal disorders (2 sources) Constipation alternates with diarrhea 04-23-2024 Episodic Other gastrointestinal disorders (4 sources) Occult blood in stools 04-15-2024 Episodic Other nervous system disorders (1 source) Other chronic pain; Translations: [Other chronic pain] Onset: 3 Chronic Other nervous system disorders (1 source) Other acute postprocedural pain; Translations: [Other acute postprocedural pain] Onset: 3 Episodic Other nutritional; endocrine; and metabolic disorders (2 sources) Body mass index 30+ - obesity 04-23-2024 Chronic Other nutritional; endocrine; and metabolic disorders (2 sources) Obesity caused by energy imbalance 04-15-2024 Chronic Other screening for suspected conditions (not mental disorders or infectious disease) (3 sources) Abnormal results of liver function studies; Translations: [Screening for malignant neoplasm of colon done] Onset: 2 Episodic Residual codes; unclassified (3 sources) Early satiety; Translations: [Early satiety] Onset: 4 Episodic Spondylosis; intervertebral disc disorders; other back problems (6 sources) Radiculopathy, cervical region; Translations: [Cervical radiculopathy] Onset: 2 Episodic Past or Other Problems Problem Classification [...] Test Name Value Interpretation Reference Range Facility Discharge Instructionson Discharge Instructions Discharge Instructions ELMER DURAN :1985 Visit Date:05/04/2024 Inpatient Discharge Instructions Your Care Team Admitting Physician - Van SEAMAN MD Referring Physician - Van SEAMAN MD Reason for Your Visit ABDOMINAL PAIN, EPIGASTRIC PAIN, POSITIVE COLOGUARD Your Diagnosis Antral gastritis Bile reflux gastritis Encounter for colorectal cancer screening Encounter for screening for malignant neoplasm of rectum Gastro-esophageal reflux disease without esophagitis Hiatal hernia with GERD without esophagitis Tests Performed Pathology Tissue Exam -- Results Pending -- Please visit your patient portal for your results or contact your primary care physician. This Is Your Medications List APAP/butalbital/caffeine (Fioricet) diclofenac (diclofenac sodium 75 mg Oral EC Tab) estradiol (Evamist) pantoprazole (Protonix 40 mg Tab-DR) semaglutide (semaglutide 0.5 mg/0.5 mL (0.5 mg dose) subcutaneous solution) sucralfate (Carafate 1 gram Tab) tizanidine (tiZANidine 4 mg Tab) Procedure History Arthroscopy of knee, Dilation and curettage, Dilation and curettage, Extraction of wisdom tooth, Laparoscopic salpingo-oophorectomy, Nose reconstruction, VH - Vaginal hysterectomy. Discharge Vitals Temperature (Temporal Artery) 36.7 ?C Heart Rate (Monitored) 87 Respiratory Rate 21 Blood Pressure 117/65 Height 167.6 cm Weight 90.8 kg BMI 32.32 What to do next Instructions From Your Doctor Event Name Event Result Discharge Activity Resume normal activities in 24 hours, Arrange for a responsible adult supervision for 24 hours Discharge Restrictions No driving for 24 hrs, Do not operate machinery or tools, Do not make important decisions for 24 hours, Do not drink alcoholic beverages for 24 hours Discharge Diet(s) Regular Call Your Doctor For Persistent or heavy bleeding, Temperature above 101.5 degrees, Redness, swelling, or pus at operative site, Severe pain at the operative site, Persistent vomiting Discharge Instructions Discharge Instructions New Follow Up Appointments after Discharge Follow Up with Van SEAMAN When: Within 1 to 2 weeks Where: [address] [place], [place] [address]dict Elaine, [address] [address]- Business (1) Medications What How Much When Why Instructions Next Dose New sucralfate (Carafate 1 gram Tab) 1 Tablets By Mouth 4 times a day Bile reflux gastritis Refills: 3 Pickup at [facility]/pharmacy #[id number] Unchanged APAP/ butalbital/ caffeine (Fioricet) 1 Tablets By Mouth Every 4 hours as needed for Headache Unchanged diclofenac (diclofenac sodium 75 mg Oral EC Tab) 1 Tablets By Mouth Once a day (at bedtime) as needed for Inflammation Unchanged estradiol (Evamist) 1 Sprays Transdermal Every day Unchanged pantoprazole (Protonix 40 mg Tab-DR) 1 Tablets By Mouth Every day Unchanged semaglutide (semaglutide 0.5 mg/ 0.5 mL (0.5 mg dose) subcutaneous solution) 0.5 Milligram Subcutaneous Every week Unchanged tizanidine (tiZANidine 4 mg Tab) 2 Tablets By Mouth At bedtime Pharmacy Information [facility]/pharmacy #[id number]: [address], [place] [phone] Test Results No qualifying data available. Allergies Aleve (Nausea and vomiting) Ceclor (Hives) CeleBREX (Hives) Keflex (Anaphylaxis) morphine (Anaphylaxis) Problems Ongoing - Any problem that you are currently receiving treatment for. Alternating constipation and diarrhea BMI 32.0-32.9,adult Cervical radiculopathy Early satiety Epigastric pain Migraine Nausea and vomiting Obesity due to excess calories Positive fecal occult blood test Positive occult stool blood test Education Materials Upper Endoscopy, Adult, Care After After the procedure, it is common to have a sore throat. It is also common to have: ? Mild stomach pain or discomfort. ? Bloating. ? Nausea. Follow these instructions at home: The instructions below may help you care for yourself at home. Your health care provider may give you more instructions. If you have questions, ask your health care provider. ? If you were given a sedative during the procedure, it can affect you for several hours. Do not drive or operate machinery until your health care provider says that it is safe. ? If you will be going home right after the procedure, plan to have a responsible adult: ? Take you home from the hospital or clinic. You will not be allowed to drive. ? Care for you for the time you are told. ? Follow instructions from your health care provider about what you may eat and drink. ? Return to your normal activities as told by your health care provider. Ask your health care provider what activities are safe for you. ? Take [id number]-couhuld and prescription medicines only as told by your health care provider. Contact a health care provider if you: ? Have a sore throat that lasts longer than one day. (more content not included)... Normal [facility] Comment on above: Result Comment: Elec tronically Signed By: Rain CRUZ, Christa\.br\Date and Time Signed: 05/06/24 11:02 EDT Main OR Intraoperative Recor meri 05-05-2024 Main OR Intraoperative Record Main OR Intraoperative Record IntraOp Document Type FT Summary Primary Physician: Van SEAMAN MD Finalized Date/Time: 05/05/24 10:28:59 Pt. Name: ELMER DURAN D.O.B./Sex: 1985 Female Med Rec #: [id number] Physician: Van SEAMAN MD Financial #: [id number] Pt. Type: O Room/Bed: / Admit/Disch: 05/04/24 09:36:21 - 05/04/24 23:59:59 Institution: Case Times FT Entry 1 Patient Times In Room 05/04/24 10:27:00 Out Room 05/04/24 10:52:00 Procedure Times Start 05/04/24 10:31:00 Stop 05/04/24 10:49:00 Anesthesia Times Start 05/04/24 10:27:00 Stop 05/04/24 10:52:00 Time at [facility] 05/04/24 10:41:00 Last Modified By: Avinash CRUZ, Migdalia Hernandez 05/04/24 10:52:15 General Comments: 1034 EGD completed. /,RN 1036 Colonoscopy started. /,RN 05/05/24 Chart opened to review and send charges [facility]FA Case Attendance FT Entry 1 Entry 2 Entry 3 Case Attendee José Miguel Null RN, Van Barnes MD Role Performed Anesthesiologist Oncology Physician Assistant - Primary Surgeon - Primary Cream Hauler Time In 05/04/24 10:27:00 05/04/24 10:27:00 05/04/24 10:27:00 Time Out 05/04/24 10:52:00 05/04/24 10:52:00 05/04/24 10:52:00 Procedure EGD AND COLONOSCOPY(.) EGD AND COLONOSCOPY(.) EGD AND COLONOSCOPY(.) Comments Dr. Hernandez supervising case Last Modified By: Avinash RN, Migdalia Da Silva RN, Migdalia Da Silva RN, Migdalia Hernandez 05/04/24 10:52:16 F 05/04/24 10:52:16 F 05/04/24 10:52:16 Entry 4 Case Attendee Joaquin Gaines Role Performed Scrub - Primary Time In 05/04/24 10:27:00 Time Out 05/04/24 10:52:00 Procedure EGD AND COLONOSCOPY(.) Comments Last Modified By: Avinash CRUZ, Migdalia Hernandez 05/04/24 10:52:16 Perioperative Protocols FT Pre-Care Text: Implements protective measures prior to operative or invasive procedure, confirms identity before the operative or invasive procedure, verifies operative procedure, surgical site, and laterality Entry 1 Procedure(s) EGD AND COLONOSCOPY(.) Patient Identity Birthday, ID Band Verified (select at Check, Patient least 2): Participation Consents / H and P Anesthesia Consent, Operative Site N/A Verified H&P, Surgery/Procedure Marking Verified Consent Surgical Site No Laterality Verified n/a Verified Procedure Verified Yes Correct Patient Yes Position Verified Availability Equipment, Medication Prep Dry n/a Verified (If Applicable) PreOp Antibiotic No Time Out José Miguel Null, Given Participants Migdalia Da Silva RN, Sparks, Micala E, NILL MD, Michael R Time Out Complete 05/04/24 10:28:00 Outcomes Met? Yes Last Modified By: Migdalia Da Silva RN 05/04/24 10:29:31 Post-Care Text: The patient is free from signs and symptoms of injury caused by extraneous objects Allergy Information FT Pre-Care Text: Verifies allergies Entry 1 Allergies Reviewed? Yes Allergies Reviewed Self/Patient With Outcomes Met? Yes Last Modified By: Migdalia Da Silva RN 05/04/24 10:29:37 Post-Care Text: The patient received appropriate medication(s) safely administered during the perioperative period Surgical Procedures FT Entry 1 Procedure Description Procedure EGD AND COLONOSCOPY Modifiers . Surgeon Description EGD with antral biopsy. Colonoscopy Primary Procedure Yes Primary Surgeon Van SEAMAN MD Start 05/04/24 10:31:00 Stop 05/04/24 10:49:00 Anesthesia Type General Surgical Service General Wound Class 2 - Clean-Contaminated Last Modified By: Migdalia Da Silva RN 05/04/24 10:49:27 General Case Data FT Pre-Care Text: Classifies surgical wound, implements aseptic technique, initiates traffic control Entry 1 Case Information OR ENDO 1 FT Case Level Level 2 Wound Class 2 - Clean-Contaminated Specialty General ASA Class 2 Preop Diagnosis Abdominal pain, Postop Same As Preop No epigastric pain, positive cologuard Postop Diagnosis EGD- hiatal hernia, Outcomes Met? Yes antral gastritis, bile reflux. Colonoscopy- normal Last Modified By: Migdalia Da Silva RN 05/04/24 10:49:48 Post-Care Text: The patient is free from signs and symptoms of infection Skin Assessment (Pre Procedure) FT Pre-Care Text: Implements protective measures to prevent skin/ tissue injury due to thermal or mechanical sources Evaluates for signs and symptoms of physical injury to skin and tissue Entry 1 Skin Integrity Intact, Fair Plain, Warm, & Skin Abnormality No Dry Outcomes Met? Yes Last Modified By: Avinash CRUZ, Migdalia Hernandez 05/04/24 10:30:24 Post-Care Text: The patient is free from signs and symptoms of injury caused by extraneous objects Patient Positioning FT Pre-Care Text: Identifies physical alterations that require additional precautions for procedure-specific positioning, verifies presence of prosthetics or corrective devices, positions the patient, evaluates the patient for signs and symptoms of injury as a result of positioning (more content not included)... Normal [facility] Reminderson 05-05-2024 Reminders Reminders From: Elina Newman LPN To: N - Clinical; Sent: 05/05/2024 10:17:05 EDT Show up: 04/04/2034 07:00:00 EDT Subject: colonoscopy recall Due Date/Time: 05/04/2034 07:00:00 EDT Reminder/Recall Patient due for screening colonoscopy 05/04/2034. Normal [facility] Discharge Instructionson Discharge Instructions Discharge Instructions DURAN, ELMER Irby :1985 Visit Date:05/04/2024 Inpatient Discharge Instructions Your Care Team Admitting Physician - Van SEAMAN MD Referring Physician - Van SEAMAN MD Reason for Your Visit ABDOMINAL PAIN, EPIGASTRIC PAIN, POSITIVE COLOGUARD Your Diagnosis Antral gastritis Bile reflux gastritis Encounter for colorectal cancer screening Encounter for screening for malignant neoplasm of rectum Gastro-esophageal reflux disease without esophagitis Hiatal hernia with GERD without esophagitis Tests Performed Pathology Tissue Exam -- Results Pending -- Please visit your patient portal for your results or contact your primary care physician. This Is Your Medications List APAP/butalbital/caffeine (Fioricet) diclofenac (diclofenac sodium 75 mg Oral EC Tab) estradiol (Evamist) pantoprazole (Protonix 40 mg Tab-DR) semaglutide (semaglutide 0.5 mg/0.5 mL (0.5 mg dose) subcutaneous solution) sucralfate (Carafate 1 gram Tab) tizanidine (tiZANidine 4 mg Tab) Procedure History Arthroscopy of knee, Dilation and curettage, Dilation and curettage, Extraction of wisdom tooth, Laparoscopic salpingo-oophorectomy, Nose reconstruction, VH - Vaginal hysterectomy. Discharge Vitals Temperature (Temporal Artery) 36.7 ?C Heart Rate (Monitored) 87 Respiratory Rate 21 Blood Pressure 117/65 Height 167.6 cm Weight 90.8 kg BMI 32.32 What to do next Instructions From Your Doctor Event Name Event Result Discharge Activity Resume normal activities in 24 hours, Arrange for a responsible adult supervision for 24 hours Discharge Restrictions No driving for 24 hrs, Do not operate machinery or tools, Do not make important decisions for 24 hours, Do not drink alcoholic beverages for 24 hours Discharge Diet(s) Regular Call Your Doctor For Persistent or heavy bleeding, Temperature above 101.5 degrees, Redness, swelling, or pus at operative site, Severe pain at the operative site, Persistent vomiting Discharge Instructions Discharge Instructions New Follow Up Appointments after Discharge Follow Up with Van SEAMAN When: Within 1 to 2 weeks Where: [address] [place] [address] [address] Business (1) Medications What How Much When Why Instructions Next Dose New sucralfate (Carafate 1 gram Tab) 1 Tablets By Mouth 4 times a day Bile reflux gastritis Refills: 3 Pickup at [facility]/pharmacy #[id number] Unchanged APAP/ butalbital/ caffeine (Fioricet) 1 Tablets By Mouth Every 4 hours as needed for Headache Unchanged diclofenac (diclofenac sodium 75 mg Oral EC Tab) 1 Tablets By Mouth Once a day (at bedtime) as needed for Inflammation Unchanged estradiol (Evamist) 1 Sprays Transdermal Every day Unchanged pantoprazole (Protonix 40 mg Tab-DR) 1 Tablets By Mouth Every day Unchanged semaglutide (semaglutide 0.5 mg/ 0.5 mL (0.5 mg dose) subcutaneous solution) 0.5 Milligram Subcutaneous Every week Unchanged tizanidine (tiZANidine 4 mg Tab) 2 Tablets By Mouth At bedtime Pharmacy Information [facility]/pharmacy #[id number]: [address], [place] [phone] Test Results No qualifying data available. Allergies Aleve (Nausea and vomiting) Ceclor (Hives) CeleBREX (Hives) Keflex (Anaphylaxis) morphine (Anaphylaxis) Problems Ongoing - Any problem that you are currently receiving treatment for. Alternating constipation and diarrhea BMI 32.0-32.9,adult Cervical radiculopathy Early satiety Epigastric pain Migraine Nausea and vomiting Obesity due to excess calories Positive fecal occult blood test Positive occult stool blood test Education Materials Excuse from Work or School Activity Date: Please excuse from . (Work, School, Physical Activity) He / She was at [facility] for procedure/medical tests/injury/illness and __ may return to work/school/activity with NO restrictions starting: __ may return to work/school/activity but WITH restrictions starting: __ restrictions : Signature Date Upper Endoscopy, Adult, Care After After the procedure, it is common to have a sore throat. It is also common to have: ? Mild stomach pain or discomfort. ? Bloating. ? Nausea. Follow these instructions at home: The instructions below may help you care for yourself at home. Your health care provider may give you more instructions. If you have questions, ask your health care provider. ? If you were given a sedative during the procedure, it can affect you for several hours. Do not drive or operate machinery until your health care provider says that it is safe. ? If you will be (more content not included)... Normal [facility] Comment on above: Result Comment: Elec tronically Signed By: Rain CRUZ, Christa\.lizzie\Date and Time Signed: 05/04/24 11:09 EDT Inpatient Patient Summaryon 05-04-2024 Inpatient Patient Summary Inpatient Patient Summary [address] [address] [facility] Clinical Discharge Instructions PERSON INFORMATION Name: [facility] DURAN [facility] Admitting Physician: Van SEAMAN MD Attending Physician: Van SEAMAN MD PCP: Dariana Page MD Discharge Diagnosis: Antral gastritis; Bile reflux gastritis; Encounter for colorectal cancer screening; Encounter for screening for malignant neoplasm of rectum; Gastro-esophageal reflux disease without esophagitis; Hiatal hernia with GERD without esophagitis Comment: PATIENT EDUCATION INFORMATION Instructions: Medication Leaflets: Follow up: With: Address: When: Van SEAMAN [address] [place] [address], [address], [place] [phone] Business (1) Within 1 to 2 weeks MEDICATION LIST New Medications [facility]/pharmacy #[id number], [address] [place], [place] [phone], [phone] sucralfate (Carafate 1 gram Tab) 1 Tablets By Mouth 4 times a day. Refills: 3. Medications to Continue with No Changes Other Medications APAP/butalbital/caffeine (Fioricet) 1 Tablets By Mouth every 4 hours as needed Headache. diclofenac (diclofenac sodium 75 mg Oral EC Tab) 1 Tablets By Mouth once a day (at bedtime) as needed Inflammation. estradiol (Evamist) 1 Sprays Transdermal every day. pantoprazole (Protonix 40 mg Tab-DR) 1 Tablets By Mouth every day. semaglutide (semaglutide 0.5 mg/0.5 mL (0.5 mg dose) subcutaneous solution) 0.5 Milligram Subcutaneous every week. tizanidine (tiZANidine 4 mg Tab) 2 Tablets By Mouth at bedtime. Comment: Normal [facility] Main OR PACU II Recordon Main OR PACU II Record Main OR PACU II Record PACU Phase II Document Type FT Summary Primary Physician: Van SEAMAN MD Finalized Date/Time: 05/04/24 11:40:24 Pt. Name: ELMER DURAN Mahamed Brewer/Sex: 1985 Female Med Rec #: [id number] Physician: Van SEAMAN MD Financial #: [id number] Pt. Type: O Room/Bed: / Admit/Disch: 05/04/24 09:36:21 - Institution: Case Times PACU II FT Pre-Care Text: Identifies barriers to communication and implements measures to provide psychological support and determines knowledge level Develops individualized plan of care, and ensures continuity of care Maintains patient's dignity and privacy, and maintains patient confidentiality Identifies and reports philosophical, cultural, and spiritual beliefs and values Identifies individual values and wishes concerning care administers prescribed antibiotic therapy and immunizing agents as ordered, Evaluates postoperative tissue perfusion Implements thermoregulation measures, and monitors body temperature Evaluates postoperative respiratory status Evaluates postoperative cardiac status Evaluates postoperative neurological status Assesses pain control, collaborated in initiating patient-controlled analgesia and implements alternative methods of pain control Verifies allergies, administers prescribed medications and solutions, evaluates response to medications Entry 1 In PACU II 05/04/24 10:53:00 Discharge from PACU 05/04/24 11:23:00 II Outcomes Met? Yes Last Modified By: Christa Rodrigez RN 05/04/24 11:40:18 Post-Care Text: The patient demonstrates knowledge of the expected response to the operative or invasive procedure The patient's care is consistent with the individualized perioperative plan of care The patient's right to privacy is maintained The patient's value system, lifestyle, ethnicity, and culture are considered, respected, and incorporated into the perioperative plan of care The patient participates in decisions affecting his or her perioperative plan of care. The patient is free from signs and symptoms of infection The patient has wound/tissue perfusion consistent with or improved from baseline levels established preoperatively The patient is at or returning to normothermia at the conclusion of the immediate postoperative period The patient's respiratory function is consistent with or improved from baseline levels established preoperatively The patient's cardiovascular status is consistent with or improved from baseline levels established preoperatively The patient's neurological status is consistent with or improved from baseline levels established preoperatively The patient demonstrates and/or reports adequate pain control throughout the perioperative period The patient received appropriate medication(s), safely administered during the perioperative period Finalized By: Christa Rodrigez RN Document Signatures Signed By: Christa Rodrigez RN 05/04/24 11:40 Normal [facility] Main OR Preoperative Recordo n 05-04-2024 Main OR Preoperative Record Main OR Preoperative Record Holding Area Document Type FT Summary Primary Physician: Van SEAMAN MD Finalized Date/Time: 05/04/24 09:44:39 Pt. Name: ELMER DURAN Mahamed Brewer/Sex: 1985 Female Med Rec #: [id number] Physician: Van SEAMAN MD Financial #: [id number] Pt. Type: O Room/Bed: / Admit/Disch: 05/04/24 09:36:21 - Institution: Case Times Holding FT Pre-Care Text: Verifies consent for planned procedure, identifies individual values and wishes concerning care, includes family members in perioperative teaching Secures patient's records' belongings, and valuables, maintains patient's dignity and privacy, and maintains patient confidentiality Entry 1 In Holding 05/04/24 09:38:00 Outcomes Met? Yes Last Modified By: Mariana Costello RN 05/04/24 09:41:33 Post-Care Text: The patient participates in decisions affecting his or her perioperative plan of care The patient's right to privacy is maintained Surgery Checklist FT Entry 1 Patient Birthday, ID Band Procedure History and Physical, Identification: Check, Patient Verification: Surgical Consent, With Participation Patient NPO after Midnight: Yes Results Reviewed Yellow Comments: Personal Items: Glasses Personal Items Glasses Comment: Limitations: Vision Complaints of Pain: Yes Pain Comment: Abdominal discomfort Operative Site n/a Marking: Availability Equipment Verified: Does Patient Smoke Yes If Yes to Smoking. Occasional Cigars or Cigarettes. How much per day? Patient states Yes Comment - Adult Mother in law- Karoline postop adult Supervision supervision available Case Cancelled in No Holding Area see comments below for reason Last Modified By: Mariana Costello RN 05/04/24 09:44:36 General Comments: Pt completed prep at 0500 and remained NPO since/MEGANRN Finalized By: Mariana Costello RN Document Signatures Signed By: Mariana Costello RN 05/04/24 09:44 Normal [facility] Operative Reporton Operative Report Operative Report Patient: ELMER DURAN Age: 38 years Sex: Female : 1985 Associated Diagnoses: None Author: Van SEAMAN MD Pre-Procedure Procedure Date 05/04/2024 11:15:00 . Procedure Type: Esophagogastroduodenoscopy with biopsy. Procedure provider Van Seaman M.D.. Referred by Dariana Page M.D.. Current history and physical Documented on chart. Informed Consent After discussing the rationale, risks and benefits, and alternatives to this procedure, the patient provided signed consent for the procedure. Pre-procedure diagnosis: Positive fecal occult blood test. Dyspepsia. Epigastric pain. ASA Classification: Class II. . Monitoring: See anesthesia record. . Procedure The procedure was performed in the hospital. See anesthesia record for sedation given during procedure. The patient was positioned starting in the left lateral decubitus position. Endoscope type used was an adult-size, introduced orally, advanced to the 2nd portion of the duodenum. No difficulty was encountered during the procedure. Views were excellent. Gastric biopsies were taken of the antrum. The patient tolerated the procedure well. Findings Examination of the esophagus revealed a normal esophagus. The squamocolumnar junction appeared regular and was located 34 cm from incisors. Gastritis was identified at the greater curvature of the antrum. The affected area was erythematous. The gastritis is mildly severe. It is suggestive of caustic gastritis. Multiple biopsies were collected. Gastritis: bile reflux noted. A hiatal hernia was identified 3 cm in length. The hernia is described as a sliding hernia. Examination of the duodenum revealed a normal duodenum. Images Procedure images: duodenum [id number] hiatal hernia antrum distal esophagus . Post-Procedure Complications: none. Estimated blood loss: 1 milliliters. Specimens: sent to pathology. Devices/ implants: none left in place. Impression and Plan EGD: Diagnosis: Hiatal hernia with GERD without esophagitis ([id number] K44.9, Discharge, Medical), Gastro-esophageal reflux disease without esophagitis ([id number] K21.9, Discharge, Medical). Course: Progressing as expected. Education and Follow-up: Counseled: Family. [facility] Comment on above: Result Comment: Elec tronically Signed By: Van SEAMAN MD\.br\Date and Time Signed: 05/04/24 20:04 EDT Other Comment: Harleen hunter Attachment - attachment storage system not supported [id number] Can be viewed in source systemMissing Attachment - attachment storage system not supported [id number] Can be viewed in source systemMissing Attachment - attachment storage system not supported [id number] Can be viewed in source systemMissing Attachment - attachment storage system not supported [id number] Can be viewed in source systemMissing Attachment - attachment storage system not supported [id number] Can be viewed in source system Outpatient Surgery Discharge Instructionon 05-04-2024 Outpatient Surgery Discharge Instruction Outpatient Surgery Discharge Instruction [place] [id number] Patient Discharge Instructions PERSON INFORMATION Name: ELMER DURAN Date of : 1985 Current Date: 05/04/2024 10:55:41 PHYSICIANS Admitting Physician: Van SEAMAN MD Discharge Diagnosis: Antral gastritis; Bile reflux gastritis; Encounter for colorectal cancer screening; Encounter for screening for malignant neoplasm of rectum; Gastro-esophageal reflux disease without esophagitis; Hiatal hernia with GERD without esophagitis ELMER DURAN has been given the following list of follow-up instructions, prescriptions, and patient education materials: PATIENT FOLLOW-UP INFORMATION Diet: Regular Discharge Activity: Resume normal activities in 24 hours, Arrange for a responsible adult supervision for 24 hours Discharge Restrictions: No driving for 24 hrs, Do not operate machinery or tools, Do not make important decisions for 24 hours, Do not drink alcoholic beverages for 24 hours Call Your Doctor For: Persistent or heavy bleeding, Temperature above 101.5 degrees, Redness, swelling, or pus at operative site, Severe pain at the operative site, Persistent vomiting IF UNABLE TO CONTACT YOUR PHYSICIAN AND YOU FEEL IT IS AN EMERGENCY, GO TO THE NEAREST EMERGENCY ROOM OR CALL 911 I, ELMER DURAN, have received the attached patient education materials/instructions and have verbalized understanding: May we do a follow up call? Yes No I was present when discharge instructions were given _ Patient Signature Date Clinican/Nurse Signature Date Follow up: With: Address: When: [address], [address], [address] [address] Business (1) Within 1 to 2 weeks Pharmacy Information: You may receive a survey from [employer] asking you to rate your care experience. Your feedback is important and will help us understand what we do well and how we can improve the quality of care we provide to you, your loved ones and our community. It?s an honor to serve you. Thank you for choosing [facility] HERE ARE THE MEDICATION CHANGES THAT OCCURRED DURING YOUR HOSPITAL STAY New Medications [id number], [address] [facility] [place] [id number], [phone] sucralfate (Carafate 1 gram Tab) 1 Tablets By Mouth 4 times a day. Refills: 3. Medications to Continue with No Changes Other Medications APAP/butalbital/caffeine (Fioricet) 1 Tablets By Mouth every 4 hours as needed Headache. diclofenac (diclofenac sodium 75 mg Oral EC Tab) 1 Tablets By Mouth once a day (at bedtime) as needed Inflammation. estradiol (Evamist) 1 Sprays Transdermal every day. pantoprazole (Protonix 40 mg Tab-DR) 1 Tablets By Mouth every day. semaglutide (semaglutide 0.5 mg/0.5 mL (0.5 mg dose) subcutaneous solution) 0.5 Milligram Subcutaneous every week. tizanidine (tiZANidine 4 mg Tab) 2 Tablets By Mouth at bedtime. PATIENT EDUCATION INFORMATION Instructions: Medication Leaflets: [facility] Ambulatory Visit Summaryon 1 Ambulatory Visit Summary Ambulatory Visit Summary DURANELMER :1985 Visit Date:04/23/2024 Ambulatory Visit Instructions Your Diagnosis Positive fecal occult blood test Your Care Team Attending Physician - YUSUF CRONIN, Van Jean Primary Care Physician - Dariana Page MD Referring Physician - Dariana Page MD This Is Your Medications List Contact prescribing physician if questions or concerns APAP/butalbital/caffeine (Fioricet) diclofenac (diclofenac sodium 75 mg Oral EC Tab) estradiol (Evamist) pantoprazole (Protonix 40 mg Tab-DR) semaglutide (semaglutide 0.5 mg/0.5 mL (0.5 mg dose) subcutaneous solution) tizanidine (tiZANidine 4 mg Tab) Procedures Performed Arthroscopy of knee, Dilation and curettage, Dilation and curettage, Extraction of wisdom tooth, Laparoscopic salpingo-oophorectomy, Nose reconstruction, VH - Vaginal hysterectomy. Discharge Vitals Heart Rate (Peripheral) 59 Respiratory Rate 16 Blood Pressure 135/88 Height 167.6 cm Height 66 in Weight 90.8 kg Weight 199.76 lb BMI 32.32 Medications What How Much When Instructions Unchanged APAP/ butalbital/ caffeine (Fioricet) 1 Tablets By Mouth Every 4 hours as needed for Headache Contact prescribing physician if questions or concerns Unchanged diclofenac (diclofenac sodium 75 mg Oral EC Tab) 1 Tablets By Mouth 2 times a day Contact prescribing physician if questions or concerns Unchanged estradiol (Evamist) 1 Sprays Transdermal Every day Contact prescribing physician if questions or concerns Unchanged pantoprazole (Protonix 40 mg Tab-DR) 1 Tablets By Mouth Every day Contact prescribing physician if questions or concerns Unchanged semaglutide (semaglutide 0.5 mg/ 0.5 mL (0.5 mg dose) subcutaneous solution) 0.5 Milligram Subcutaneous Every week Contact prescribing physician if questions or concerns Unchanged tizanidine (tiZANidine 4 mg Tab) 2 Tablets By Mouth At bedtime Contact prescribing physician if questions or concerns Allergies Aleve (Nausea and vomiting) Ceclor (Hives) CeleBREX (Hives) Keflex (Anaphylaxis) morphine (Anaphylaxis) Problems Ongoing - Any problem that you are currently receiving treatment for. Cervical radiculopathy Migraine Obesity due to excess calories Positive fecal occult blood test Positive occult stool blood test Patient Survey You may receive a survey via text or e-mail asking about your office visit. Please share your experience with us by completing your survey. We appreciate your feedback and thank you for choosing us for your care. Normal [facility] CT PELVIS W CONTRASTon 07-04 CT PELVIS [...] oophorectomy. FINDINGS: Previous hysterectomy and recent right salpingo-oophorectomy. Minimal residual soft tissue stranding in the [...] Mahesh Esteban MD 07/04/23 Final result Normal [facility] CBC with Diffon 06-18-2023 Abs. Basophil 0.08 k/uL Normal 0.00-0.20 [facility] Comment on above: Performed By: #### C DP, CP #### [address] [place] [address] Fishing Tackle Repairer: Ellen Fregoso MD Abs.Imm.Granulocyt e 0.05 k/uL Normal 0.00-0.30 [facility] Comment on above: Performed By: #### C DP, CP #### [address] [place] [address] Fishing Tackle Repairer: Ellen Fregoso MD Abs.Neutrophil (Seg) 5.11 k/uL Normal 1.50-8.10 [facility] Comment on above: Performed By: #### C DP, CP #### [address] [place] [address] Fishing Tackle Repairer: Ellen Fregoso MD Basophils/100 WBC (Bld) 1 % Normal 0-2 [facility] Comment on above: Performed By: #### C DP, CP #### [address] [place], [place] [address] Fishing Tackle Repairer: Ellen Fregoso MD Eosinophils (Bld) [#/Vol] 0.51 10*3/uL High 0.00-0.44 [facility] Comment on above: Performed By: #### C DP, CP #### [address] [place] [address] Fishing Tackle Repairer: Ellen Fregoso MD Eosinophils/100 WBC (Bld) 6 % High 1-4 [facility] Comment on above: Performed By: #### C DP, CP #### [facility] [address] [place], [place] [id number] Fishing Tackle Repairer: Ellen Fregoso MD Erythrocyte distribution width (RBC) [Ratio] 12.0 % Normal 11.8-14.4 [facility] Comment on above: Performed By: #### C DP, CP #### [address] [place], [place] [id number] Fishing Tackle Repairer: Ellen Fregoso MD Hematocrit (Bld) [Volume fraction] 44.2 % Normal 36.3-47.1 [facility] Comment on above: Performed By: #### C DP, CP #### [address] [place], [facility] Fishing Tackle Repairer: Ellen Fregoso MD Hemoglobin (Bld) [Mass/Vol] 14.4 g/dL Normal 11.9-15.1 [facility] Comment on above: Performed By: #### C DP, CP #### [address] [place], [place] [id number] Fishing T[employer]le Repairer: Ellen Fregoso MD Immature granulocytes/100 WBC (Bld) 1 % High 0 [facility] Comment on above: Performed By: #### C DP, CP #### [address] [place], [facility]83 Fishing Tackle Repairer: Ellen Fregoso MD Lymphocytes (Bld) [#/Vol] 2.13 10*3/uL Normal 1.10-3.70 [facility] Comment on above: Performed By: #### C DP, CP #### [address] [place], [place] [address] Fishing Tackle Repairer: Ellen Fregoso MD Lymphocytes/100 WBC (Bld) 25 % Normal 24-43 [facility] Comment on above: Performed By: #### C DP, CP #### [facility] [address] [place] [address] Dr. [place], [facility]83 Fishing Tackle Repairer: Ellen Fregoso MD MCH (RBC) [Entitic mass] 31.8 pg Normal 25.2-33.5 [facility] Comment on above: Performed By: #### C DP, CP #### [facility] [address] [place], [place] [id number] Fishing Tackle Repairer: Ellen Fregoso MD MCHC (RBC) [Mass/Vol] 32.6 g/dL Normal 28.4-34.8 [facility] Comment on above: Performed By: #### C DP, CP #### [address] [place] [address] Fishing Tackle Repairer: Ellen Fregoso MD MCV (RBC) [Entitic vol] 97.6 fL Normal 82.6-102.9 [facility] Comment on above: Performed By: #### C DP, CP #### [address] [place], [place] [address] Fishing Tackle Repairer: Ellen Fregoso MD Monocytes (Bld) [#/Vol] 0.64 10*3/uL Normal 0.10-1.20 [facility] Comment on above: Performed By: #### C DP, CP #### [address] [place], [place] [address] Fishing Tackle Repairer: Ellen Fregoso MD Monocytes/100 WBC (Bld) 8 % Normal 3-12 [facility] Comment on above: Performed By: #### C DP, CP #### [address] [place], [place] [address] Fishing T[employer]le Repairer: Ellen Fregoso MD Neutrophil (Seg) 59 % Normal 36-65 [facility] Comment on above: Performed By: #### C DP, CP #### [address] [place] [address] Fishing Tackle Repairer: Ellen Fregoso MD NRBC Automated 0.0 per 100 WBC Normal 0.0 [facility] Comment on above: Performed By: #### C DP, CP #### [facility] [address] [place], [place] [id number] Fishing Tackle Repairer: Ellen Fregoso MD Platelet mean volume (Bld) [Entitic vol] 9.0 fL Normal 8.1-13.5 [facility] Comment on above: Performed By: #### C DP, CP #### [facility] [address] [place], [place] [address] Fishing Tackle Repairer: Ellen Fregoso MD Platelets (Bld) [#/Vol] 334 10*3/uL Normal 138-453 [facility] Comment on above: Performed By: #### C DP, CP #### [facility] [address] [place], [place] [id number] Fishing T[employer]le Repairer: Ellen Fregoso MD RBC (Bld) [#/Vol] 4.53 10*6/uL Normal 3.95-5.11 [facility] Comment on above: Performed By: #### C DP, CP #### [facility] [address] [place], [place] [address] Fishing T[employer]le Repairer: Ellen Fregoso MD WBC (Bld) [#/Vol] 8.5 10*3/uL Normal 3.5-11.3 [facility] Comment on above: Performed By: #### C DP, CP #### [facility] [address] [place], [place] [address] Fishing Tackle Repairer: Ellen Fregoso MD Comp Metabolic Profon 2022 Albumin [Mass/Vol] 4.3 g/dL Normal 3.5-5.2 [facility] Comment on above: Performed By: #### C DP, CP #### [facility] [address] [place] [address] Fishing Tackle Repairer: Ellen Fregoso MD Albumin/Glob Ratio 1.3 Normal 1.0-2.5 [facility] Comment on above: Performed By: #### C DP, CP #### [facility] [address] [place], [place] [address] Fishing Tackle Repairer: Ellen Fregoso MD Alkaline Phos 76 U/L Normal 35-104 [facility] Comment on above: Performed By: #### C DP, CP #### [facility] [address] [place], [place] [address] Fishing Tackle Repairer: Ellen Fregoso MD ALT [Catalytic activity/Vol] 34 U/L High 5-33 [facility] Comment on above: Performed By: #### C DP, CP #### [facility] [address] [place], [place] [id number] Fishing Tackle Repairer: Ellen Fregoso MD Anion gap [Moles/Vol] 11 mmol/L Normal 9-17 [facility] Comment on above: Performed By: #### C DP, CP #### [facility] [address] [place], [place] [address] Fishing Tackle Repairer: Ellen Fregoso MD AST [Catalytic activity/Vol] 24 U/L Normal <32 [facility] Comment on above: Performed By: #### C DP, CP #### [facility] [address] [place], [place] [id number] Fishing Tackle Repairer: Ellen Fregoso MD Bilirubin [Mass/Vol] 0.7 mg/dL Normal 0.3-1.2 [facility] Comment on above: Performed By: #### C DP, CP #### [facility] [address] [place], [place] [address] Fishing Tackle Repairer: Ellen Fregoso MD BUN/CRE Ratio 20 Normal 9-20 [facility] Comment on above: Performed By: #### C DP, CP #### [facility] [address] [place], [place] [phone] Fishing Tackle Repairer: Ellen Fregoso MD Calcium [Mass/Vol] 9.2 mg/dL Normal 8.6-10.4 [facility] Comment on above: Performed By: #### C DP, CP #### [facility] [address] [place] [address] Fishing Tackle Repairer: Ellen Fregoso MD Chloride [Moles/Vol] 103 mmol/L Normal 98-107 [facility] Comment on above: Performed By: #### C DP, CP #### [facility] [address] [place] [address] Fishing Tackle Repairer: Ellen Fregoso MD CO2 [Moles/Vol] 25 mmol/L Normal 20-31 [facility] Comment on above: Performed By: #### C DP, CP #### [facility] [address] [place], [place] [address] Fishing Tackle Repairer: Ellen Fregoso MD Creatinine [Mass/Vol] 0.7 mg/dL Normal 0.5-0.9 [facility] Comment on above: Performed By: #### C DP, CP #### [facility] [address] [place] [address] Fishing Tackle Repairer: Ellen Fregoso MD GFR/1.73 sq M.predicted among non-blacks MDRD (S/P/Bld) [Vol rate/Area] mL/min/{1.73_m2} Normal >60 [facility] Comment on above: Result Comment: These [...] Performed By: #### C DP, CP #### [facility] [address] [place] [address] Fishing Tackle Repairer: Ellen Fregoso MD Glucose [Mass/Vol] 93 mg/dL Normal 70-99 [facility] Comment on above: Performed By: #### C DP, CP #### [address] [place] [address] Fishing Tackle Repairer: Ellen Fregoso MD Potassium [Moles/Vol] 4.5 mmol/L Normal 3.7-5.3 [facility] Comment on above: Performed By: #### C DP, CP #### [address] [place], [place] [address] Fishing Tackle Repairer: Ellen Fregoso MD Protein [Mass/Vol] 7.6 g/dL Normal 6.4-8.3 [facility] Comment on above: Performed By: #### C DP, CP #### [address] [place], [place] [address] Fishing Tackle Repairer: Ellen Fregoso MD Sodium [Moles/Vol] 139 mmol/L Normal 135-144 [facility] Comment on above: Performed By: #### C DP, CP #### [address] [place], [place] [address] Fishing Tackle Repairer: Ellen Fregoso MD Urea nitrogen [Mass/Vol] 14 mg/dL Normal 6-20 [facility] Comment on above: Performed By: #### C DP, CP #### [address] [place] [address] Fishing Tackle Repairer: Ellen Fregoso MD CBC with Diffon 06-12-2023 Abs. Basophil 0.10 k/uL Normal 0.00-0.20 [facility] Comment on above: Performed By: #### C DP, CP #### [address] [place] [address] Fishing Tackle Repairer: Ellen Fregoso MD Abs.Imm.Granulocyt e 0.05 k/uL Normal 0.00-0.30 [facility] Comment on above: Performed By: #### C DP, CP #### [address] [place] [facility]83 Fishing Tackle Repairer: Ellen Fregoso MD Abs.Neutrophil (Seg) 5.13 k/uL Normal 1.50-8.10 [facility] Comment on above: Performed By: #### C DP, CP #### [address] [place], [facility]83 Fishing Tackle Repairer: Ellen Fregoso MD Basophils/100 WBC (Bld) 1 % Normal 0-2 [facility] Comment on above: Performed By: #### C DP, CP #### [address] [place], [facility]83 Fishing Tackle Repairer: Ellen Fregoso MD Eosinophils (Bld) [#/Vol] 0.42 10*3/uL Normal 0.00-0.44 [facility] Comment on above: Performed By: #### C DP, CP #### [address] [place], [facility]83 Fishing Tackle Repairer: Ellen Fregoso MD Eosinophils/100 WBC (Bld) 5 % High 1-4 [facility] Comment on above: Performed By: #### C DP, CP #### [address] [place], [facility]83 Fishing Tackle Repairer: Ellen Fregoso MD Erythrocyte distribution width (RBC) [Ratio] 11.8 % Normal 11.8-14.4 [facility] Comment on above: Performed By: #### C DP, CP #### [address] [place], [facility]83 Fishing Tackle Repairer: Ellen Fregoso MD Hematocrit (Bld) [Volume fraction] 42.6 % Normal 36.3-47.1 [facility] Comment on above: Performed By: #### C DP, CP #### [address] [place], [facility]83 Fishing Tackle Repairer: Ellen Fregoso MD Hemoglobin (Bld) [Mass/Vol] 13.8 g/dL Normal 11.9-15.1 [facility] Comment on above: Performed By: #### C DP, CP #### [facility] [address] [place], [place] [id number] Fishing Tackle Repairer: Ellen Fregoso MD Immature granulocytes/100 WBC (Bld) 1 % High 0 [facility] Comment on above: Performed By: #### C DP, CP #### [facility] [address] [place], [facility]83 Fishing Tackle Repairer: Ellen Fregoso MD Lymphocytes (Bld) [#/Vol] 2.82 10*3/uL Normal 1.10-3.70 [facility] Comment on above: Performed By: #### C DP, CP #### [address] [place], [facility]83 Fishing Tackle Repairer: Ellen Fregoso MD Lymphocytes/100 WBC (Bld) 31 % Normal 24-43 [facility] Comment on above: Performed By: #### C DP, CP #### [address] [place], [facility]83 Fishing Tackle Repairer: Ellen Fregoso MD MCH (RBC) [Entitic mass] 31.7 pg Normal 25.2-33.5 [facility] Comment on above: Performed By: #### C DP, CP #### [address] [place], [facility]83 Fishing Tackle Repairer: Ellen Fregoso MD MCHC (RBC) [Mass/Vol] 32.4 g/dL Normal 28.4-34.8 [facility] Comment on above: Performed By: #### C DP, CP #### [address] [place] [address] Fishing Tackle Repairer: Ellen Fregoso MD MCV (RBC) [Entitic vol] 97.9 fL Normal 82.6-102.9 [facility] Comment on above: Performed By: #### C DP, CP #### [facility] [address] [place], [place] [id number] Fishing Tackle Repairer: Ellen Fregoso MD Monocytes (Bld) [#/Vol] 0.71 10*3/uL Normal 0.10-1.20 [facility] Comment on above: Performed By: #### C DP, CP #### [facility] [address] [place], [place] [id number] Fishing Tackle Repairer: Ellen Fregoso MD Monocytes/100 WBC (Bld) 8 % Normal 3-12 [facility] Comment on above: Performed By: #### C DP, CP #### [address] [place], [place] [id number] Fishing Tackle Repairer: Ellen Fregoso MD Neutrophil (Seg) 54 % Normal 36-65 [facility] Comment on above: Performed By: #### C DP, CP #### [address] [place], [place] [id number] Fishing Tackle Repairer: Ellen Fregoso MD NRBC Automated 0.0 per 100 WBC Normal 0.0 [facility] Comment on above: Performed By: #### C DP, CP #### [address] [place], [place] [id number] Fishing Tackle Repairer: Ellen Fregoso MD Platelet mean volume (Bld) [Entitic vol] 9.6 fL Normal 8.1-13.5 [facility] Comment on above: Performed By: #### C DP, CP #### [address] [place], [place] 9577383 Fishing Tackle Repairer: Ellen Fregoso MD Platelets (Bld) [#/Vol] 309 10*3/uL Normal 138-453 [facility] Comment on above: Performed By: #### C DP, CP #### [address] [place], [place] [id number] Fishing Tackle Repairer: Ellen Fregoso MD RBC (Bld) [#/Vol] 4.35 10*6/uL Normal 3.95-5.11 [facility] Comment on above: Performed By: #### C DP, CP #### [facility] [address] [place] [address] Fishing Tackle Repairer: Ellen Fregoso MD WBC (Bld) [#/Vol] 9.2 10*3/uL Normal 3.5-11.3 [facility] Comment on above: Performed By: #### C DP, CP #### [facility] [address] [place] [address] Fishing Tackle Repairer: Ellen Fregoso MD Comp Metabolic Profon 2022 Albumin [Mass/Vol] 4.5 g/dL Normal 3.5-5.2 [facility] Comment on above: Performed By: #### C DP, CP #### [facility] [address] [place] [address] Dr. [place], [place] [id number] Fishing Tackle Repairer: Ellen Fregoso MD Albumin/Glob Ratio 1.5 Normal 1.0-2.5 [facility] Comment on above: Performed By: #### C DP, CP #### [facility] [address] [place] [address] Dr. [place], [place] [id number] Fishing Tackle Repairer: Ellen Fregoso MD Alkaline Phos 74 U/L Normal 35-104 [facility] Comment on above: Performed By: #### C DP, CP #### [facility] [address] [place], [place] [address] Fishing Tackle Repairer: Ellen Fregoso MD ALT [Catalytic activity/Vol] 34 U/L High 5-33 [facility] Comment on above: Performed By: #### C DP, CP #### [facility] [address] [place], [place] [id number] Fishing Tackle Repairer: Ellen Fregoso MD Anion gap [Moles/Vol] 9 mmol/L Normal 9-17 [facility] Comment on above: Performed By: #### C DP, CP #### [facility] [address] [place], [place] 5545183 Fishing Tackle Repairer: Ellen Fregoso MD AST [Catalytic activity/Vol] 22 U/L Normal <32 [facility] Comment on above: Performed By: #### C DP, CP #### [facility] [address] [place], [place] 7835183 Fishing Tackle Repairer: Ellen Fregoso MD Bilirubin [Mass/Vol] 0.5 mg/dL Normal 0.3-1.2 [facility] Comment on above: Performed By: #### C DP, CP #### [facility] [address] [place], [place] [address]66[address]83 Fishing Tackle Repairer: Ellen Fregoso MD BUN/CRE Ratio 20 Normal 9-20 [facility] Comment on above: Performed By: #### C DP, CP #### [facility] [address] [place], [place] [address]99[address]83 Fishing Tackle Repairer: Ellen Fregoso MD Calcium [Mass/Vol] 9.1 mg/dL Normal 8.6-10.4 [facility] Comment on above: Performed By: #### C DP, CP #### [facility] [address] [place], [place] [address]85[address]83 Fishing Tackle Repairer: Ellen Fregoso MD Chloride [Moles/Vol] 103 mmol/L Normal 98-107 [facility] Comment on above: Performed By: #### C DP, CP #### [facility] [address] [place], [place] [id number] Fishing Tackle Repairer: Ellen Fregoso MD CO2 [Moles/Vol] 26 mmol/L Normal 20-31 [facility] Comment on above: Performed By: #### C DP, CP #### [facility] [address] [place], [place] [id number] Fishing Tackle Repairer: Ellen Fregoso MD Creatinine [Mass/Vol] 0.7 mg/dL Normal 0.5-0.9 [facility] Comment on above: Performed By: #### C DP, CP #### [facility] [address] [place] [address] Fishing Tackle Repairer: Ellen Fregoso MD GFR/1.73 sq M.predicted among non-blacks MDRD (S/P/Bld) [Vol rate/Area] mL/min/{1.73_m2} Normal >60 [facility] Comment on above: Result Comment: These [...] Performed By: #### C DP, CP #### [facility] [address] [place] [address] [place] [address] Fishing Tackle Repairer: Ellen Fregoso MD Glucose [Mass/Vol] 81 mg/dL Normal 70-99 [facility] Comment on above: Performed By: #### C DP, CP #### [address] [place] [address] Fishing Tackle Repairer: Ellen Fregoso MD Potassium [Moles/Vol] 4.5 mmol/L Normal 3.7-5.3 [facility] Comment on above: Performed By: #### C DP, CP #### [facility] [address] [place] [address] [place] [address] Fishing Tackle Repairer: Ellen Fregoso MD Protein [Mass/Vol] 7.5 g/dL Normal 6.4-8.3 [facility] Comment on above: Performed By: #### C DP, CP #### [facility] [address] [place] [address] [place] [address] Fishing Tackle Repairer: Ellen Fregoso MD Sodium [Moles/Vol] 138 mmol/L Normal 135-144 [facility] Comment on above: Performed By: #### C DP, CP #### [facility] [address] [place], [place] 3435183 Fishing Tackle Repairer: Ellen Fregoso MD Urea nitrogen [Mass/Vol] 14 mg/dL Normal 6-20 [facility] Comment on above: Performed By: #### C DP, CP #### [facility] [address] [place], [place] [id number] Fishing Tackle Repairer: Ellen Fregoso MD UA w/Reflex Cultureon 2022 Bilirubin, SemiQt,Ur Negative Normal NEG [facility] Comment on above: Performed By: #### U MICAO, UAX #### [facility] [address] [place], [place] [address]139383 Fishing Tackle Repairer: Ellen Fregoso MD Blood, Urine Negative Normal NEG [facility] Comment on above: Performed By: #### U MICAO, UAX #### [facility] [address] [place], [place] [phone] Fishing Tackle Repairer: Ellen Fregoso MD Clarity (U) Clear Normal CLEAR [facility] Comment on above: Performed By: #### U MICAO, UAX #### [facility] [address] [place], [place] 7037383 Fishing Tackle Repairer: lElen Fregoso MD Color (U) Yellow Normal YEL [facility] Comment on above: Performed By: #### U MICAO, UAX #### [facility] [address] [place], [place] [id number] Fishing Tackle Repairer: Ellen Fregoso MD Glucose Ql (U) Negative Normal NEG [facility] Comment on above: Performed By: #### U MICAO, UAX #### [facility] [address] [place], [place] [id number] Fishing Tackle Repairer: Ellen Fregoso MD Ketones Ql (U) Negative Normal NEG [facility] Comment on above: Performed By: #### U MICAO, UAX #### [facility] [address] [place] [address] Dr. [place], [place] [id number] Fishing Tackle Repairer: Ellen Fregoso MD Leukocyte esterase Test strip Ql (U) Negative Normal NEG [facility] Comment on above: Performed By: #### U MICAO, UAX #### [facility] [address] [place], [place] [phone] Fishing Tackle Repairer: Ellen Fregoso MD Nitrite,Ur Negative Normal NEG [facility] Comment on above: Performed By: #### U MICAO, UAX #### [address] [place], [facility]83 Fishing Tackle Repairer: Ellen Fregoso MD PH,Ur 6.0 Normal 5.0-9.0 [facility] Comment on above: Performed By: #### U MICAO, UAX #### [facility] [address] [place] [address] Dr. [place], [place] [id number] Fishing Tackle Repairer: Ellen Fregoso MD Protein Ql (U) Negative Normal [facility] Comment on above: Performed By: #### U MICAO, UAX #### [facility] [address] [place] [address] Dr. [place], [facility]83 Fishing Tackle Repairer: Ellen Fregoso MD Spec. [place],Ur 1.020 Normal 1.010-1.020 [facility] Comment on above: Performed By: #### U MICAO, UAX #### [facility] [address] [place] [address] Dr. [place], [facility]83 Fishing Tackle Repairer: Ellen Fregoso MD Urobilinogen,Ur Normal Normal 0.0-1.0 [facility] Comment on above: Performed By: #### U MICAO, UAX #### [facility] [address] [place] [address] [place] [place] [id number] Fishing Tackle Repairer: Ellen Fregoso MD Urinalysis,Microon 3 Bacteria 1+ Abnormal NONE [facility] Comment on above: Performed By: #### U MICAO, UAX #### [facility] [address] [place] [id number] Fishing Tackle Repairer: Ellen Fregoso MD Epithelial cells LM Ql (Urine sed) 2 TO 5 Normal 0-25 [facility] Comment on above: Performed By: #### U MICAO, UAX #### [facility] [address] [place] [id number] Fishing Tackle Repairer: Ellen Fregoso MD Mucus Strands TRACE Abnormal NONE [facility] Comment on above: Performed By: #### U MICAO, UAX #### [facility] [address] [place] [address] Fishing Tackle Repairer: Ellen Fregoso MD Urine RBC's None Normal 0-2 [facility] Comment on above: Performed By: #### U MICAO, UAX #### [facility] [address] [place] [facility]83 Fishing Tackle Repairer: Ellen Fregoso MD Urine WBC's 0 TO 2 Normal 0-5 [facility] Comment on above: Performed By: #### U MICAO, UAX #### [facility] [address] [place] [address] 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 Chelsey Matos. 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 AND CYST Gross Description ELEMR DURAN, RIGHT OVARY AND CYST Received in formalin are fragments of wrinkled pink-españa tissue consistent with ovary including cystic tissue, 7-grams and 4.5 x 3.8 x 1.5 cm in aggregate. External surfaces appear wrinkled and pink-españa with no excrescences. Sectioning reveals rubbery pink-españa cut surfaces and there are no excrescences in the cystic areas. Confidential Secretary sections are submitted in 3cs. cd LRD/kb2:05/31/2023 Microscopic Description 3 RAYSHAWN reviewed. Microscopic evaluation performed. Processing Lab: [facility] [address] [place] [id number] Interpretation Performed at [facility] [address] [place] [address] SURGICAL PATHOLOGY CONSULTATION Patient Name: ELMER DURAN [facility] Rec: [id number] [facility] ANATOMIC PATHOLOGY [address] [facility]. [place], [place] [address] Normal [facility] CBC AUTO DIFFon 06-09-2022 BASO # 0.1 103/ul Normal 0.0-0.1 [facility] Comment on above: Performed By: #### C BC #### [facility] [address] [place] [address] Dr. Valeria Stacy Basophils/100 WBC (Bld) 0.8 % Normal 0.2-2.0 [facility] Comment on above: Performed By: #### C BC #### [facility] [address] [place] [address] Dr. Valeria Stacy EO # 0.1 103/ul Normal 0.0-0.7 [facility] Comment on above: Performed By: #### C BC #### [facility] [address] [place] [address] Dr. Valeria Stacy Eosinophils/100 WBC (Bld) 0.9 % Normal 0.9-7.0 [facility] Comment on above: Performed By: #### C BC #### [facility] [address] [place] [address] Dr. Valeria Stacy Erythrocyte distribution width (RBC) [Ratio] 12.6 % Normal 11.0-15.0 [facility] Comment on above: Performed By: #### C BC #### [facility] [address] [place] [address] Dr. Valeria Stacy Hematocrit (Bld) [Volume fraction] 42.4 % Normal 36.0-48.0 [facility] Comment on above: Performed By: #### C BC #### [facility] [address] [place] [address] Dr. Valeria Stacy Hemoglobin (Bld) [Mass/Vol] 13.8 g/dL Normal 12.0-16.0 [facility] Comment on above: Performed By: #### C BC #### [facility] [address] [place] [address] Dr. Valeria Stacy IG # 0.10 10e3/ul Critically high 0.00-0.03 [facility] Comment on above: Performed By: #### C BC #### [facility] [address] [place] [address] Dr. Valeria Stacy IG % 0.9 % Critically high 0.0-0.5 [facility] Comment on above: Performed By: #### C BC #### [facility] [address] [place] [address] Dr. Valeria Stacy LYMPH # 2.3 103/ul Normal 1.2-3.8 [facility] Comment on above: Performed By: #### C BC #### [facility] [address] [place] [address] Dr. Valeria Stacy Lymphocytes/100 WBC (Bld) 20.2 % Critically low 20.5-60.0 [facility] Comment on above: Performed By: #### C BC #### [facility] [address] [place] [address] Dr. Valeria Stacy MANUAL DIFF REQ NO Normal [facility] Comment on above: Performed By: #### C BC #### [facility] [address] [place] [address] Dr. Valeria Stacy MCH (RBC) [Entitic mass] 31.2 pg Normal 26.7-34.0 [facility] Comment on above: Performed By: #### C BC #### [facility] [address] [address] [address] Valeria Stacy MCHC (RBC) [Mass/Vol] 32.5 g/dL Normal 29.9-35.2 [facility] Comment on above: Performed By: #### C BC #### [facility] [address] [address] [address] Valeria Stacy MCV (RBC) [Entitic vol] 95.7 fL Normal 81.0-99.0 [facility] Comment on above: Performed By: #### C BC #### [facility] [address] [place] [address] Dr. Valeria Stacy MONO # 0.7 103/ul Normal 0.3-0.8 [facility] Comment on above: Performed By: #### C BC #### [facility] [address] [place] [address] Dr. Valeria Stacy Monocytes/100 WBC (Bld) 6.2 % Normal 1.7-12.0 [facility] Comment on above: Performed By: #### C BC #### [facility] [address] [place] [address] Dr. Valeria Stacy NEUT # 8.2 103/ul Critically high 1.4-6.5 [facility] Comment on above: Performed By: #### C BC #### [facility] [address] [place] [address] Dr. Valeria Stacy Neutrophils/100 WBC (Bld) 71.0 % Normal 43.0-75.0 [facility] Comment on above: Performed By: #### C BC #### [facility] [address] [place] [address] Dr. Valeria Stacy Platelet mean volume (Bld) [Entitic vol] 8.5 fL Critically low 9.5-13.5 [facility] Comment on above: Performed By: #### C BC #### [facility] [address] [place] [address] Dr. Valeria Stacy PLT 344 103/ul Normal 150-450 [facility] Comment on above: Performed By: #### C BC #### [facility] [address] [address] [address] Valeria Stacy RBC 4.43 106/ul Normal 4.20-5.40 [facility] Comment on above: Performed By: #### C BC #### [facility] [address] [address] [address] Valeria Stacy WBC 11.5 103/ul Critically high 4.0-11.0 [facility] Comment on above: Performed By: #### C BC #### [facility] [address] [address] [address] Valeria Stacy FREE T3on 06-09-2022 FREE T3 2.26 pg/mlL Normal 2.18-3.98 [facility] Comment on above: Performed By: #### F T3, CMP, TSH, T4 ####[facility] [address] [address]DrSvitlana Stacy PROF 14(COMP METB)on 022 Albumin [Mass/Vol] 3.5 g/dL Normal 3.4-5.0 [facility] Comment on above: Performed By: #### F T3, CMP, TSH, T4 ####[facility] [address] [address]DrSvitlana Stacy Albumin/Globulin [Mass ratio] 0.9 {ratio} Normal [facility] Comment on above: Performed By: #### F T3, CMP, TSH, T4 ####[facility] [address] [address]DrSvitlana Stacy ALP [Catalytic activity/Vol] 83 U/L Normal 46-116 [facility] Comment on above: Performed By: #### F T3, CMP, TSH, T4 ####[facility] [address] [place] [address]DrSvitlana Stacy ALT [Catalytic activity/Vol] 59 U/L Normal 14-59 [facility] Comment on above: Performed By: #### F T3, CMP, TSH, T4 ####[facility] [address] [address]Dr. Valeria Stacy Anion gap [Moles/Vol] 11.7 mmol/L Normal [facility] Comment on above: Performed By: #### F T3, CMP, TSH, T4 ####[facility] [address] [address]Dr. Valeria Stacy AST [Catalytic activity/Vol] 22 U/L Normal 15-37 [facility] Comment on above: Performed By: #### F T3, CMP, TSH, T4 ####[facility] [address] [place], [place] [address]Dr. Valeria Stacy Bilirubin [Mass/Vol] 0.5 mg/dL Normal 0.2-1.0 [facility] Comment on above: Performed By: #### F T3, CMP, TSH, T4 ####[facility] [address] [place], [place] [address]Dr. Valeria Stacy Calcium [Mass/Vol] 9.1 mg/dL Normal 8.5-10.1 [facility] Comment on above: Performed By: #### F T3, CMP, TSH, T4 ####[facility] [address] [address]Dr. Valeria Stacy Chloride [Moles/Vol] 104 mmol/L Normal 98-107 [facility] Comment on above: Performed By: #### F T3, CMP, TSH, T4 ####[facility] [address] [address]Dr. Valeria Stacy CO2 [Moles/Vol] 26.4 mmol/L Normal 21.0-32.0 [facility] Comment on above: Performed By: #### F T3, CMP, TSH, T4 ####[facility] [address] [address]Dr. Valeria Stacy Creatinine [Mass/Vol] 0.85 mg/dL Normal 0.55-1.02 [facility] Comment on above: Performed By: #### F T3, CMP, TSH, T4 ####[facility] [address] [address]Dr. Valeria Stacy EGFR-AF DJIBOUTIAN >60 Normal >=60 [facility] Comment on above: Performed By: #### F T3, CMP, TSH, T4 ####[facility] [address] [address]Dr. Valeria Stacy EGFR-NON AF DJIBOUTIAN >60 Normal >=60 [facility] Comment on above: Performed By: #### F T3, CMP, TSH, T4 ####[facility] [address] [address]Dr. Valeria Stacy Globulin (S) [Mass/Vol] 4.0 g/dL Normal [facility] Comment on above: Performed By: #### F T3, CMP, TSH, T4 ####[facility] [address] [address]Dr. Valeria Stacy Glucose [Mass/Vol] 85 mg/dL Normal 74-106 [facility] Comment on above: Performed By: #### F T3, CMP, TSH, T4 ####[facility] [address] [place] [address]Dr. Valeria Stacy Potassium [Moles/Vol] 4.1 mmol/L Normal 3.5-5.1 [facility] Comment on above: Performed By: #### F T3, CMP, TSH, T4 ####[facility] [address] [place], [place] [address]Dr. Valeria Stacy Protein [Mass/Vol] 7.5 g/dL Normal 6.4-8.2 [facility] Comment on above: Performed By: #### F T3, CMP, TSH, T4 ####[facility] [address] [place] [address]Dr. Valeria Stacy Sodium [Moles/Vol] 138 mmol/L Normal 136-145 [facility] Comment on above: Performed By: #### F T3, CMP, TSH, T4 ####[facility] [address] [place] [address]Dr. Valeria Stacy Urea nitrogen [Mass/Vol] 12.0 mg/dL Normal 7.0-18.0 [facility] Comment on above: Performed By: #### F T3, CMP, TSH, T4 ####[facility] [address] [place], [place] [address]Fi. Valeria Stacy Urea nitrogen/Creatinin e [Mass ratio] 14.1 mg/mg Normal [facility] Comment on above: Performed By: #### F T3, CMP, TSH, T4 ####[facility] [address] [place], [place] [address]Tf. Valeria Stacy T4on 06-09-2022 T4 [Mass/Vol] 7.90 ug/dL Normal 4.80-13.90 [facility] Comment on above: Performed By: #### F T3, CMP, TSH, T4 ####[facility] [address] [place] [id number]. Valeria Stacy TSHon 06-09-2022 TSH 0.604 uIU/mL Normal 0.358-3.740 [facility] Comment on above: Performed By: #### F T3, CMP, TSH, T4 ####[facility] [address] [place] [id number]. Valeria Stacy MRI CSPINE WO CONon 04-17-20 MRI CSPINE WO CON EXAMINATION: MRI CSP INE WO CON HISTORY: Cervical radiculopathy COMPARISON: No [...] ELLEN MENDEZ Date: 2022-04-17 19:34 Normal [facility] XR CSPINE MIN 4 VIEWSon 03-22 [...] PHILIPP AYALA Date: 2022-04-05 07:06 Normal [facility] INSULINon 02-19-2022 Insulin 30.3 uIU/mL Critically high 2.6-24.9 [facility] Comment on above: Performed By: #### I NSULIN ####[facility] [address] [place], [place] [address]Dr. Valeria Stacy CBC AUTO DIFFon 02-17-2022 BASO # 0.1 103/ul Normal 0.0-0.1 [facility] Comment on above: Performed By: #### C BC ####[facility] [address] [place], [place] [address]Dr. Valeria Stacy Basophils/100 WBC (Bld) 1.2 % Normal 0.2-2.0 [facility] Comment on above: Performed By: #### C BC ####[facility] [address] [place], [place] [address]Dr. Valeria Stacy EO # 0.5 103/ul Normal 0.0-0.7 [facility] Comment on above: Performed By: #### C BC ####[facility] [address] [place], [place] [address]Dr. Valeria Stacy Eosinophils/100 WBC (Bld) 6.6 % Normal 0.9-7.0 [facility] Comment on above: Performed By: #### C BC ####[facility] [address] [place], [place] [address]Dr. Valeria Stacy Erythrocyte distribution width (RBC) [Ratio] 12.6 % Normal 11.0-15.0 [facility] Comment on above: Performed By: #### C BC ####[facility] [address] [place] [address]Dr. Valeria Stacy Hematocrit (Bld) [Volume fraction] 41.8 % Normal 36.0-48.0 [facility] Comment on above: Performed By: #### C BC ####[facility] [address] [place], [place] [address]Dr. Valeria Stacy Hemoglobin (Bld) [Mass/Vol] 13.7 g/dL Normal 12.0-16.0 [facility] Comment on above: Performed By: #### C BC ####[facility] [address] [place], [place] [address]Dr. Valeria Stacy IG # 0.03 10e3/ul Normal 0.00-0.03 [facility] Comment on above: Performed By: #### C BC ####[facility] [address] [place], [place] [address]Dr. Valeria Stacy IG % 0.4 % Normal 0.0-0.5 [facility] Comment on above: Performed By: #### C BC ####[facility] [address] [place], [place] [address]Dr. Valeria Regis LYMPH # 3.1 103/ul Normal 1.2-3.8 [facility] Comment on above: Performed By: #### C BC ####[facility] [address] [place], [place] [address]Dr. Magdalenaleonard Stacy Lymphocytes/100 WBC (Bld) 38.7 % Normal 20.5-60.0 [facility] Comment on above: Performed By: #### C BC ####[facility] [address] [place], [place] [address]Dr. Magdalenaleonard Stacy MANUAL DIFF REQ NO Normal [facility] Comment on above: Performed By: #### C BC ####[facility] [address] [place], [place] [address]Dr. Yileonard Stacy MCH (RBC) [Entitic mass] 31.2 pg Normal 26.7-34.0 [facility] Comment on above: Performed By: #### C BC ####[facility] [address] [place] [address]Dr. Valeria Stacy MCHC (RBC) [Mass/Vol] 32.8 g/dL Normal 29.9-35.2 [facility] Comment on above: Performed By: #### C BC ####[facility] [address] [place] [address]Dr. Valeria Regis MCV (RBC) [Entitic vol] 95.2 fL Normal 81.0-99.0 [facility] Comment on above: Performed By: #### C BC ####[facility] [address] [place], [place] [address]DrSvitlana Stacy MONO # 0.7 103/ul Normal 0.3-0.8 [facility] Comment on above: Performed By: #### C BC ####[facility] [address] [place], [place] [address]Dr. Magdalenaleonard Stacy Monocytes/100 WBC (Bld) 8.6 % Normal 1.7-12.0 [facility] Comment on above: Performed By: #### C BC ####[facility] [address] [place], [place] [address]Dr. Valeria Stacy NEUT # 3.6 103/ul Normal 1.4-6.5 [facility] Comment on above: Performed By: #### C BC ####[facility] [address] [place], [place] [address]Dr. Magdalenaleonard Stacy Neutrophils/100 WBC (Bld) 44.5 % Normal 43.0-75.0 [facility] Comment on above: Performed By: #### C BC ####[facility] [address] [place], [place] [address]DrSvitlana Valeria Regis Platelet mean volume (Bld) [Entitic vol] 8.6 fL Critically low 9.5-13.5 [facility] Comment on above: Performed By: #### C BC ####[facility] [address] [place], [place] [address]Mz. Valeria Stacy PLT 325 103/ul Normal 150-450 [facility] Comment on above: Performed By: #### C BC ####[facility] [address] [place] [id number] Stacy RBC 4.39 106/ul Normal 4.20-5.40 [facility] Comment on above: Performed By: #### C BC ####[facility] [address] [place] [id number]. Valeria Stacy WBC 8.0 103/ul Normal 4.0-11.0 [facility] Comment on above: Performed By: #### C BC ####[facility] [address] [place] [address]Dr. Valeria Stacy FREE THYROXINE INDEX T7on FTI 2.26 Normal 1.30-4.50 [facility] Comment on above: Performed By: #### L IPID, T7, CMP, TSH #### [facility] [address] [place] [address] [address] Valeria Stacy T3U 31.0 % Normal 30.0-39.0 [facility] Comment on above: Performed By: #### L IPID, T7, CMP, TSH #### [facility] [address] [place] [address] [address] Valeria Stacy T4 [Mass/Vol] 7.30 ug/dL Normal 4.80-13.90 [facility] Comment on above: Performed By: #### L IPID, T7, CMP, TSH #### [facility] [address] [place] [address] [address] Valeria Stacy GLYCOHEMOGLOBIN A1Con 2021 ADA RECOMMENDATION SEE BELOW Normal [facility] Comment on above: Result Comment: ADA RECOMMENDED LIMIT 4.0 - 6.0 ADA THERAPEUTIC TARGET < 7.0 ACTION SUGGESTED > 7.0 Performed By: #### A 1C #### [facility] [address] [place] [address] [address] Valeria Stacy Glucose [Mass/Vol] 111 mg/dL Normal [facility] Comment on above: Performed By: #### A 1C #### [facility] [address] [place] [address] [address] Valeria Stacy HbA1c (Bld) [Mass fraction] 5.5 % Normal 4.5-6.2 [facility] Comment on above: Performed By: #### A 1C #### [facility] [address] [place] [address] [address] Valeria Stacy IRONon 02-17-2022 Iron [Mass/Vol] 114.0 ug/dL Normal 50.0-170.0 [facility] Comment on above: Performed By: #### I ROWENA #### [facility] [address] [place] [address] [address] Valeria Stacy LIPID PROFILEon 02-17-2022 CHOL-HDL RATIO NORM SEE BELOW Normal [facility] Comment on above: Result Comment: 3.3 - 4.4 LOW RISK 4.4 - 7.1 AVERAGE RISK 7.1 - 11.0 MODERATE RISK >11.0 HIGH RISK Performed By: #### L IPID, T7, CMP, TSH #### [facility] [address] [place] [address] [address] Valeria Stacy Cholesterol [Mass/Vol] 175 mg/dL Normal <=200 [facility] Comment on above: Performed By: #### L IPID, T7, CMP, TSH #### [facility] [address] [place] [address] [address] Valeria Stacy Cholesterol in HDL [Mass/Vol] 45 mg/dL Normal 40-60 [facility] Comment on above: Performed By: #### L IPID, T7, CMP, TSH #### [facility] [address] [place] [address] [address] Valeria Stacy Cholesterol in LDL [Mass/Vol] 89.0 mg/dL Normal [facility] Comment on above: Performed By: #### L IPID, T7, CMP, TSH #### [facility] [address] [place] [address] [address] Valeria Stacy Cholesterol.total/ Cholesterol in HDL [Mass ratio] 3.9 {ratio} Normal [facility] Comment on above: Performed By: #### L IPID, T7, CMP, TSH #### [facility] [address] [place] [address] [address] Valeria Stacy HDL NORMAL > or = 60 mg/dl - LO W CARDIOVASCULAR RISK <40 mg/dl - HIGH CARDIOVASCULAR RISK Normal [facility] Comment on above: Performed By: #### L IPID, T7, CMP, TSH #### [facility] [address] [place] [address] [address] Valeria Stacy LDL CALC NORMAL SEE BELOW Normal [facility] Comment on above: Result Comment: <100 mg/dl OPTIMAL 100 - 129 mg/dl NEAR OR ABOVE OPTIMAL 130 - 159 mg/dl BORDERLINE HIGH 160 - 189 mg/dl HIGH >190 mg/dl VERY HIGH Performed By: #### L IPID, T7, CMP, TSH #### [facility] [address] [place] [address] [address] Valeria Stacy Triglyceride [Mass/Vol] 205 mg/dL Critically high <=150 [facility] Comment on above: Performed By: #### L IPID, T7, CMP, TSH #### [facility] [address] [place] [address] [address] Valeria Stacy VLDL CALC 41.0 mg/dL Normal [facility] Comment on above: Performed By: #### L IPID, T7, CMP, TSH #### [facility] [address] [place] [address] [address] Valeria Stacy PROF 14(COMP METB)on 022 Albumin [Mass/Vol] 3.6 g/dL Normal 3.4-5.0 [facility] Comment on above: Performed By: #### L IPID, T7, CMP, TSH #### [facility] [address] [place] [address] [address] Valeria Stacy Albumin/Globulin [Mass ratio] 0.8 {ratio} Normal [facility] Comment on above: Performed By: #### L IPID, T7, CMP, TSH #### [facility] [address] [place] [address] [address] Valeria Stacy ALP [Catalytic activity/Vol] 73 U/L Normal 46-116 [facility] Comment on above: Performed By: #### L IPID, T7, CMP, TSH #### [facility] [address] [place] [address] [address] Valeria Stacy ALT [Catalytic activity/Vol] 115 U/L Critically high 14-59 [facility] Comment on above: Performed By: #### L IPID, T7, CMP, TSH #### [facility] [address] [place] [address] [address] Valeria Stacy Anion gap [Moles/Vol] 12.1 mmol/L Normal [facility] Comment on above: Performed By: #### L IPID, T7, CMP, TSH #### [facility] [address] [place] [address] [address] Valeria Stacy AST [Catalytic activity/Vol] 36 U/L Normal 15-37 [facility] Comment on above: Performed By: #### L IPID, T7, CMP, TSH #### [facility] [address] [place] [address] Dr. Valeria Stacy Bilirubin [Mass/Vol] 0.6 mg/dL Normal 0.2-1.0 [facility] Comment on above: Performed By: #### L IPID, T7, CMP, TSH #### [facility] [address] [place] [address] Dr. Valeria Stacy Calcium [Mass/Vol] 8.6 mg/dL Normal 8.5-10.1 [facility] Comment on above: Performed By: #### L IPID, T7, CMP, TSH #### [facility] [address] [place] [address] [address] Valeria Stacy Chloride [Moles/Vol] 107 mmol/L Normal 98-107 [facility] Comment on above: Performed By: #### L IPID, T7, CMP, TSH #### [facility] [address] [place] [address] Dr. Valeria Stacy CO2 [Moles/Vol] 24.9 mmol/L Normal 21.0-32.0 [facility] Comment on above: Performed By: #### L IPID, T7, CMP, TSH #### [facility] [address] [place] [address] [address] Valeria Stacy Creatinine [Mass/Vol] 0.93 mg/dL Normal 0.55-1.02 [facility] Comment on above: Performed By: #### L IPID, T7, CMP, TSH #### [facility] [address] [place] [address] [address] Valeria Stacy EGFR-AF DJIBOUTIAN >60 Normal >=60 [facility] Comment on above: Performed By: #### L IPID, T7, CMP, TSH #### [facility] [address] [place] [address] [address] Valeria Stacy EGFR-NON AF DJIBOUTIAN >60 Normal >=60 [facility] Comment on above: Performed By: #### L IPID, T7, CMP, TSH #### [facility] [address] [place] [address] Dr. Valeria Stacy Globulin (S) [Mass/Vol] 4.4 g/dL Normal [facility] Comment on above: Performed By: #### L IPID, T7, CMP, TSH #### [facility] [address] [place] [address] Dr. Valeria Stacy Glucose [Mass/Vol] 89 mg/dL Normal 74-106 [facility] Comment on above: Performed By: #### L IPID, T7, CMP, TSH #### [facility] [address] [place] [address] [address] Valeria Stacy Potassium [Moles/Vol] 4.0 mmol/L Normal 3.5-5.1 [facility] Comment on above: Performed By: #### L IPID, T7, CMP, TSH #### [facility] [address] [place] [address] [address] Valeria Stacy Protein [Mass/Vol] 8.0 g/dL Normal 6.4-8.2 [facility] Comment on above: Performed By: #### L IPID, T7, CMP, TSH #### [facility] [address] [place] [address] Dr. Valeria Stacy Sodium [Moles/Vol] 140 mmol/L Normal 136-145 [facility] Comment on above: Performed By: #### L IPID, T7, CMP, TSH #### [facility] [address] [place] [address] [address] Valeria Stacy Urea nitrogen [Mass/Vol] 8.0 mg/dL Normal 7.0-18.0 [facility] Comment on above: Performed By: #### L IPID, T7, CMP, TSH #### [facility] [address] [place] [address] Dr. Valeria Stacy Urea nitrogen/Creatinin e [Mass ratio] 8.6 mg/mg Normal [facility] Comment on above: Performed By: #### L IPID, T7, CMP, TSH #### [facility] [address] [place] [address] Dr. Valeria Stacy TSHon 02-17-2022 TSH 0.897 uIU/mL Normal 0.358-3.740 [facility] Comment on above: Performed By: #### L IPID, T7, CMP, TSH #### [facility] [address] [place] [address] Dr. Valeria Stacy US KAYLA DOP LEG [...] by: ELLEN MENDEZ Date: 2021-09-16 11:37 Normal [facility] - Toxicology Resultson 0 08-04-2018 Lab - Toxicology Results [id number] Normal [facility] Vital Signs Date Time Vital Sign Value Performing Clinician Danya meade 05-04-2024 11:20-0400 Diastolic blood pressure 95 mm[Hg] [facility] 05-04-2024 11:20-0400 Heart rate 69 /min [facility] 05-04-2024 11:20-0400 Respiratory rate 12 /min [facility] 05-04-2024 11:20-0400 SaO2% (BldA) [Mass fraction] 100 % [facility] 05-04-2024 11:20-0400 Systolic blood pressure 137 mm[Hg] [facility] 05-04-2024 11:05-0400 Diastolic blood pressure 90 mm[Hg] [facility] 05-04-2024 11:05-0400 Heart rate 73 /min [facility] 05-04-2024 11:05-0400 Respiratory rate 14 /min [facility] 05-04-2024 11:05-0400 SaO2% (BldA) [Mass fraction] 100 % [facility] N[facility] 05-04-2024 11:05-0400 Systolic blood pressure 141 mm[Hg] [facility] N[facility] 05-04-2024 11:00-0400 Diastolic blood pressure 65 mm[Hg] [facility] 05-04-2024 11:00-0400 Heart rate 87 /min [facility] 05-04-2024 11:00-0400 Respiratory rate 21 /min Van [facility] 05-04-2024 11:00-0400 Systolic blood pressure 117 mm[Hg] [facility] 05-04-2024 10:53-0400 Body temperature 98.06 [degF] [facility] 05-04-2024 10:50-0400 Respiratory rate 18 /min Van N[facility] 05-04-2024 10:45-0400 Respiratory rate 18 /min Van N[facility] 05-04-2024 10:40-0400 Respiratory rate 18 /min Van N[facility] 04-23-2024 13:33-0400 Blood Pressure Location Van NILL [facility] [place] 04-23-2024 13:33-0400 Diastolic blood pressure 88 mm[Hg] Van N[facility] [place] 04-23-2024 13:33-0400 Heart rate 59 /min Van NILL [facility] [place] 04-23-2024 13:33-0400 Respiratory rate 16 /min Van N[facility] [place] 04-23-2024 13:33-0400 Systolic blood pressure 135 mm[Hg] Van NILL [facility] [place] Encounters Encounter Date Encounter Type Care Provider Facility Start: 05-26-2024 ambulatory Van R NILL Facility : [facility] Start: 05-04-2024 End: 05-04-2024 ambulatory Van R NILL Facility[place] Start: 05-04-2024 End: 05-04-2024 Patient encounter procedure Van R NILL [facility] Start: 04-23-2024 End: 04-23-2024 ambulatory Van FUENTESL Facility:[facility]TE Landa Start: 04-23-2024 End: 04-23-2024 Patient encounter procedure Van [facility]UENTESL [facility] [place] Start: 04-13-2024 ambulatory Van FUENTESL Facility:[facility] L[facility] Start: 04-10-2024 ambulatory Van FUENTESL Facility:Sixto Caba [facility] Start: 06-28-2023 End: 07-01-2023 ambulatory [facility] Start: 06-18-2023 End: 06-19-2023 ambulatory [facility] Start: 06-12-2023 End: 06-13-2023 ambulatory [facility] Start: 05-31-2023 End: 05-31-[address] [facility] Start: 06-09-2022 End: 06-10-[address] DARIANA PAGE Facility:[facility] Start: 04-17-2022 End: 04-18-[address] DARIANA PAGE Facility:[facility] Start: 04-16-2022 End: 05-29-[address] DARIANA PAGE Facility:[facility] Start: 04-04-2022 End: 04-05-[address] DARIANA PAGE Facility:[facility] Start: 02-22-2022 Encounter for genera l adult medical examination without abnormal findings DR DARIANA PAGE [facility] Start: 02-17-2022 End: 02-18-[address] DARIANA PAGE Facility:[facility] Start: 02-17-2022 End: 02-18-2022 Encounter for general adult medical examination without abnormal findings DR DARIANA PAGE Facility:[facility] Start: 09-16-2021 End: 09-16-2021 ambulatory ASHOK CERVANTES Facility:[facility] Start: 08-02-[address] DARIANA PAGE Facility :[facility] Procedures Date Procedure Procedure Detail Performing Clinician Start: 05-04-2024 Colonoscopy Vna SEAMAN Comment on above: normal Start: 05-04-2024 Esophagogastroduodenoscopy Van FUENTESL Comment on above: HH,Gastritis, biopsies done Arthroscopy of knee Van SEAMAN Dilation and curettage Ran SEAMAN Extraction of wisdom tooth Andrew FUENTESL Laparoscopic salpingo-oophorectomy Van PoptipL Reconstruction of nose Ran SEAMAN Vaginal hysterectomy [facility] Payers Date Payer Category Payer Unknown [id number] 1985 Unknown [id number] 2.16.84 [id number] 1985 Unknown [id number] 2.16.84 [id number] 1984 Unknown [id number] 2.16.84 [id number] 1984 Unknown [id number] 2.16.84 [id number] 1984 Unknown [id number] 2.16.84 [id number] 1984 Unknown [id number] 2.16.84 [id number] 1984 Unknown [id number] 2.16.84 [id number] 1984 Unknown [id number] 2.16.8 [id number] 1984 Unknown [id number] 2.16.8 [id number] 1984 Unknown [id number] 2.16.8 [id number] 1984 Unknown [id number] 2.16.8 [id number] 1984 Unknown [id number] 2.16.8 [id number] 1984 Unknown [id number] 2.16.8 [id number] 1984 Unknown [id number] 2.16.8 [id number] 1960 Self-pay [id number] 1960 Unknown [id number] Social History Date Type Detail Facility Start: 04-23-2024 Tobacco smoking status Light t obacco smoker (finding) [facility] Tobacco smoking status Never [facility] Sex Assigned At Female [facility] Functional Status Date Assessment Result Facility 05-04-2024 Functional Status N/A [facility] 04-23-2024 Functional Status N/A [facility] Clinical Notes 04-23-2024 to 05-06-2024 Note Date & Type Note Facility 05-06-2024 Note Progress Note-Physic yogesh Patient: ELMER DURAN Age: 38 years Sex: Female : 1985 Associated Diagnoses: None Author: Cipriano Hernandez Jr, DO Preoperative Information Anesthesia Preop Info: Time patient last ate or drank 05/04/2024 00:00:00. Anesthesia history: Patient history: None. Family history+: None. Informed consent: Signed by patient. Re-evaluation prior to induction: Initial evaluation reviewed: No significant change. Review of Systems Eye: Negative except as documented in history of present illness. Ear/Nose/Mouth/Throat: Negative except as documented in history of present illness. Respiratory: Negative except as documented in history of present illness. Cardiovascular: Negative except as documented in history of present illness. Musculoskeletal: Negative except as documented in history of present illness. Neurologic: Negative except as documented in history of present illness. Health Status Allergies: Allergic Reactions (Selected) Severity Not Documented Ceclor- Hives. CeleBREX- Hives. Keflex- Anaphylaxis. Morphine- Anaphylaxis. Nonallergic Reactions (Selected) Severity Not Documented Aleve- Nausea and vomiting. Problem list: All Problems Positive occult stool blood test / SNOMED CT 3592508754 / Confirmed Positive fecal occult blood test / SNOMED CT 7033547464 / Confirmed Obesity due to excess calories / SNOMED CT 9294075693 / Confirmed Nausea and vomiting / SNOMED CT 75881635 / Confirmed Migraine / SNOMED CT 92585573 / Confirmed Epigastric pain / SNOMED CT 569339843 / Confirmed Early satiety / SNOMED CT 8012768000 / Confirmed Alternating constipation and diarrhea / SNOMED CT 825629129 / Confirmed Cervical radiculopathy / SNOMED CT 541941587 / Confirmed BMI 32.0-32.9,adult / SNOMED CT 583125037 / Confirmed Histories Procedure history: Arthroscopy of knee (724401254). Nose reconstruction (4060573417). Laparoscopic salpingo-oophorectomy (1859384250). [facility] - Vaginal hysterectomy (734354921). Dilation and curettage (72814337). Extraction of wisdom tooth (513420197). Dilation and curettage (84125306). Social History Social & Psychosocial Habits Alcohol 05/04/2024 Use: Current Type: Beer, Liquor Frequency: 1-2 times per week Substance Abuse 05/04/2024 Risk Assessment: Denies Substance Abuse Tobacco 05/04/2024 Tobacco Use: 4 or less cigarettes(less Smokeless tobacco use: Never Type: Cigarettes Started at age: 16.0 Years Smoking Cessation Yes . Physical Examination Airway: Mallampati classification: II (soft palate, fauces, uvula visible). Respiratory: adequate air exchange. Cardiovascular: Regular rhythm. Plan [place] [employer] Anesthesiologists (ASA) physical status classification: Class II. Anesthetic Preoperative Plan: Anesthesia General. [facility] Comment on above: Result Comment: Elec tronically Signed By: Cipriano Hernandez Jr, DO\.lizzie\Date and Time Signed: 05/06/24 08:12 EDT 05-06-2024 Note Progress Note-Physic yogesh Patient: ELMER DURAN Age: 38 years Sex: Female : 1985 Associated Diagnoses: None Author: Cipriano Hernandez Jr, DO Postoperative Information Postoperative disposition: Postoperative disposition: To PACU. Optimetrix number: Optimetrix number [id number]. Anesthetic utilized: General. Health Status Allergies: Allergic Reactions (Selected) Severity Not Documented Ceclor- Hives. CeleBREX- Hives. Keflex- Anaphylaxis. Morphine- Anaphylaxis. Nonallergic Reactions (Selected) Severity Not Documented Aleve- Nausea and vomiting. Physical Examination Vital Signs 05/04/2024 11:20 EDT Heart Rate Monitored 69 bpm Respiratory Rate Monitored 12 br/min Systolic Blood Pressure 137 mmHg Diastolic Blood Pressure 95 mmHg HI SpO2 100 % 05/04/2024 11:05 EDT Heart Rate Monitored 73 bpm Respiratory Rate Monitored 14 br/min Systolic Blood Pressure 141 mmHg HI Diastolic Blood Pressure 90 mmHg HI SpO2 100 % 05/04/2024 11:00 EDT Heart Rate Monitored 87 bpm Respiratory Rate Monitored 21 br/min Systolic Blood Pressure 117 mmHg Diastolic Blood Pressure 65 mmHg SpO2 100 % 05/04/2024 10:55 EDT Heart Rate Monitored 75 bpm Respiratory Rate Monitored 16 br/min Systolic Blood Pressure 120 mmHg Diastolic Blood Pressure 69 mmHg SpO2 95 % 05/04/2024 10:53 EDT Temperature Temporal Artery 36.7 DegC Heart Rate Monitored 77 bpm Respiratory Rate Monitored 22 br/min Systolic Blood Pressure 106 mmHg Diastolic Blood Pressure 56 mmHg LOW SpO2 94 % Pain Assessment: Controlled. General: Awake, Alert, Appropriate. Respiratory: Adequate air exchange. Cardiovascular: Stable, Normal peripheral perfusion. Neurological: Normal sensory function, Normal motor function. Assessment Anesthetic outcome No anesthetic complications noted. Adequate pain relief. able to void without difficulty, able to ambulate with assist, tolerating PO intake, no N/V. Review / Management Condition: Stable. Plan Transfer/Discharge: Transfer/Discharge Discharge when meets criteria ( To home ). [facility] Comment on above: Result Comment: Elec tronically Signed By: Cipriano Hernandez Jr, DO\.br\Date and Time Signed: 05/06/24 08:11 EDT 05-05-2024 Note Colonoscopy Procedur e Report Patient: ELMER DURAN Age: 38 years Sex: Female : 1985 Associated Diagnoses: None Author: Van SEAMAN MD Pre-Procedure Procedure Date 05/04/2024 11:15:00 . Procedure Type: Colonoscopy. Procedure provider Performed by Van SEAMAN MD [facility] 05-04-2024 Note Colonoscopy Procedur e Report Patient: ELMER DURAN Age: 38 years Sex: Female : 1985 Associated Diagnoses: None Author: Van SEAMAN MD Pre-Procedure Procedure Date 05/04/2024 11:15:00 . Procedure Type: Colonoscopy with. Procedure provider Van Seaman M.D.. Referred by Dariana Page M.D.. Current history and physical Documented on chart. Colorectal neoplasm risk assessment Average risk. Informed Consent After discussing the rationale, risks and benefits, and alternatives to this procedure, the patient provided signed consent for the procedure. Pre-procedure diagnosis: Positive fecal occult blood test. Unexplained chronic abdominal pain. ASA Classification: Class II. . Monitoring: See anesthesia record. . Procedure The procedure was performed in the hospital. See anesthesia record for sedation given during procedure. Rectal exam was performed and was normal. The patient was positioned starting in the left lateral decubitus position. Endoscope type used was an adult-size. The endoscope was lubricated then introduced through the anus. The scope was advanced to the cecum verified by photographing the appendiceal orifice, verified by photographing the ileocecal valve. No difficulties encountered during the procedure. The bowel preparation quality was good and was adequate (see polyps greater than or equal to 6 millimeters). The patient tolerated the procedure well. Findings The bowel was normal throughout the extent examined. Images Procedure images: anal canal [id number] appendiceal orifice . Post-Procedure Complications: none. Estimated blood loss: none. Specimens: none. Devices/ implants: none left in place. Impression and Plan Diagnosis: Encounter for screening for malignant neoplasm of rectum ([id number] Z12.12, Discharge, Medical). Course: Progressing as expected. Recommendations: Repeat colonoscopy:: In 10 years. Follow-up:: in 1-2 weeks. Diet:: Regular diet. Medication resumption:: Continue current medications. Return to activities:: After 24 hours. Education and Follow-up: Counseled: Family. [facility] Comment on above: Other Comment: Harleen hunter Attachment - attachment storage system not supported [id number] Can be viewed in source systemMissing Attachment - attachment storage system not supported [id number] Can be viewed in source systemMissing Attachment - attachment storage system not supported [id number] Can be viewed in source system 05-04-2024 Hospital Discharge instructions Patient Education 05/04/2024 11:09:18 [facility] Patient Work/School Note(CUSTOM) Excuse from Work or School Activity Date: Please excuse from ___ . (Work, School, Physical Activity) He / She was at [facility] for procedure/medical tests/injury/illness and __ may return to work/school/activity with NO restrictions starting: __ may return to work/school/activity but WITH restrictions starting: __ restrictions : Signature Date 05/04/2024 11:08:44 Upper Endoscopy, Adult, Care After Upper Endoscopy, Adult, Care After After the procedure, it is common to have a sore throat. It is also common to have: Mild stomach pain or discomfort. Bloating. Nausea. Follow these instructions at home: The instructions below may help you care for yourself at home. Your health care provider may give you more instructions. If you have questions, ask your health care provider. If you were given a sedative during the procedure, it can affect you for several hours. Do not drive or operate machinery until your health care provider says that it is safe. If you will be going home right after the procedure, plan to have a responsible adult: ?Take you home from the hospital or clinic. You will not be allowed to drive. ?Care for you for the time you are told. Follow instructions from your health care provider about what you may eat and drink. Return to your normal activities as told by your health care provider. Ask your health care provider what activities are safe for you. Take tpha-gcd-eozjlph and prescription medicines only as told by your health care provider. Contact a health care provider if you: Have a sore throat that lasts longer than one day. Have trouble swallowing. Have a fever. Get help right away if you: Vomit blood or your vomit looks like coffee grounds. Have bloody, black, or tarry stools. Have a very bad sore throat or you cannot swallow. Have difficulty breathing or very bad pain in your chest or abdomen. These symptoms may be an emergency. Get help right away. Call 911. Do not wait to see if the symptoms will go away. Do not drive yourself to the hospital. Summary After the procedure, it is common to have a sore throat, mild stomach discomfort, bloating, and nausea. If you were given a sedative during the procedure, it can affect you for several hours. Do not drive until your health care provider says that it is safe. Follow instructions from your health care provider about what you may eat and drink. Return to your normal activities as told by your health care provider. This information is not intended to replace advice given to you by your health care provider. Make sure you discuss any questions you have with your health care provider. Document Revised: 10/17/2022 Document Reviewed: 10/17/2022 [employer] Patient Education 2023 [employer] 05/04/2024 11:08:39 Hiatal Hernia Hiatal Hernia A hiatal hernia occurs when part of the stomach slides above the muscle that separates the abdomen from the chest (diaphragm). A person can be born with a hiatal hernia (congenital), or it may develop over time. In almost all cases of hiatal hernia, only the top part of the stomach pushes through the diaphragm. Many people have a hiatal hernia with no symptoms. The larger the hernia, the more likely it is that you will have symptoms. In some cases, a hiatal hernia allows stomach acid to flow back into the tube that carries food from your mouth to your stomach (esophagus). This may cause heartburn symptoms. The development of heartburn symptoms may mean that you have a condition called gastroesophageal reflux disease (GERD). What are the causes? This condition is caused by a weakness in the opening (hiatus) where the esophagus passes through the diaphragm to attach to the upper part of the stomach. A person may be born with a weakness in the hiatus, or a weakness can develop over time. What increases the risk? This condition is more likely to develop in: Older people. Age is a major risk factor for a hiatal hernia, especially if you are over the age of 50. women. People who are overweight. People who have frequent constipation. What are the signs or symptoms? Symptoms of this condition usually develop in the form of GERD symptoms. Symptoms include: Heartburn. Upset stomach (indigestion). Trouble swallowing. Coughing or wheezing. Wheezing is making high-pitched whistling sounds when you breathe. Sore throat. Chest pain. Nausea and vomiting. How is this diagnosed? This condition may be diagnosed during testing for GERD. Tests that may be done include: X-rays of your stomach or chest. An upper gastrointestinal (GI) series. This is an X-ray exam of your GI tract that is taken after you swallow a chalky liquid that shows up clearly on the X-ray. Endoscopy. This is a procedure to look into your stomach using a thin, flexible tube that has a tiny camera and light on the end of it. How is this treated? This condition may be treated by: Dietary and lifestyle changes to help reduce GERD symptoms. Medicines. These may include: ?Ripz-bmf-bnjemef antacids. ?Medicines that make your stomach empty more quickly. ?Medicines that block the production of stomach acid (H2 blockers). ?Stronger medicines to reduce stomach acid (proton pump inhibitors). Surgery to repair the hernia, if other treatments are not helping. If you have no symptoms, you may not need treatment. Follow these instructions at home: Lifestyle and activity Do not use any products that contain nicotine or tobacco. These products include cigarettes, chewing tobacco, and vaping devices, such as e-cigarettes. If you need help quitting, ask your health care provider. Try to achieve and maintain a healthy body weight. Avoid putting pressure on your abdomen. Anything that puts pressure on your abdomen increases the amount of acid that may be pushed up into your esophagus. ?Avoid bending over, especially after eating. ?Raise the head of your bed by putting blocks under the legs. This keeps your head and esophagus higher than your stomach. ?Do not wear tight clothing around your chest or stomach. ?Try not to strain when having a bowel movement, when urinating, or when lifting heavy objects. Eating and drinking Avoid foods that can worsen GERD symptoms. These may include: ?Fatty foods, like fried foods. ?[place] fruits, like oranges or lemon. ?Other foods and drinks that contain acid, like orange juice or tomatoes. ?Spicy food. ?Chocolate. Eat frequent small meals instead of three large meals a day. This helps prevent your stomach from getting too full. ?Eat slowly. ?Do not lie down right after eating. ?Do not eat 1 2 hours before bed. Do not drink beverages with caffeine. These include cola, coffee, cocoa, and tea. Do not drink alcohol. General instructions Take dcmh-mdt-wsuxmgc and prescription medicines only as told by your health care provider. Keep all follow-up visits. Your health care provider will want to check that any new prescribed medicines are helping your symptoms. Contact a health care provider if: Your symptoms are not controlled with medicines or lifestyle changes. You are having trouble swallowing. You have coughing or wheezing that will not go away. Your pain is getting worse. Your pain spreads to your arms, neck, jaw, teeth, or back. You feel nauseous or you vomit. Get help right away if: You have shortness of breath. You vomit blood. You have bright red blood in your stools. You have black, tarry stools. These symptoms may be an emergency. Get help right away. Call 911. Do not wait to see if the symptoms will go away. Do not drive yourself to the hospital. Summary A hiatal hernia occurs when part of the stomach slides above the muscle that separates the abdomen from the chest. A person may be born with a weakness in the hiatus, or a weakness can develop over time. Symptoms of a hiatal hernia may include heartburn, trouble swallowing, or sore throat. Management of a hiatal hernia includes eating frequent small meals instead of three large meals a day. Get help right away if you vomit blood, have bright red blood in your stools, or have black, tarry stools. This information is not intended to replace advice given to you by your health care provider. Make sure you discuss any questions you have with your health care provider. Document Revised: 09/04/2022 Document Reviewed: 09/04/2022 [employer] Patient Education 2023 [employer] 05/04/2024 11:06:50 Gastritis, Adult Gastritis, Adult Gastritis is inflammation of the stomach. There are two kinds of gastritis: Acute gastritis. This kind develops suddenly. Chronic gastritis. This kind is much more common. It develops slowly and lasts for a long time. Gastritis happens when the lining of the stomach becomes weak or gets damaged. Without treatment, gastritis can lead to stomach bleeding and ulcers. What are the causes? This condition may be caused by: An infection. Drinking too much alcohol. Certain medicines. These include steroids, antibiotics, and some pamo-qew-hodivan medicines, such as aspirin or ibuprofen. Having too much acid in the stomach. Having a disease of the stomach. Other causes may include: An allergic reaction. Some cancer treatments (radiation). Smoking cigarettes or the use of products that contain nicotine or tobacco. In some cases, the cause of this condition is not known. What increases the risk? Having a disease of the intestines. Having a disease in which the body's immune system attacks the body (autoimmune disease), such as Crohn's disease. Using aspirin or ibuprofen and other NSAIDs to treat other conditions, such as heart disease or chronic pain. Stress. What are the signs or symptoms? Symptoms of this condition include: Pain or a burning sensation in the upper abdomen. Nausea. Vomiting. An uncomfortable feeling of fullness after eating. Weight loss. Bad breath. Blood in your vomit or stool (feces). In some cases, there are no symptoms. How is this diagnosed? This condition may be diagnosed based on your medical history, a physical exam, and tests. Tests may include: Your medical history and a description of your symptoms. A physical exam. Tests. These can include: ?Blood tests. ?Stool tests. ?A test in which a thin, flexible instrument with a light and a camera is passed down the esophagus and into the stomach (upper endoscopy). ?A test in which a tissue sample is removed to look at it under a microscope (biopsy). How is this treated? This condition may be treated with medicines. The medicines that are used vary depending on the cause of the gastritis. If the condition is caused by a bacterial infection, you may be given antibiotic medicines. If the condition is caused by too much acid in the stomach, you may be given medicines called H2 blockers, proton pump inhibitors, or antacids. Treatment may also involve stopping the use of certain medicines such as aspirin or ibuprofen and other NSAIDs. Follow these instructions at home: Medicines Take ioev-jhy-awcxjck and prescription medicines only as told by your health care provider. If you were prescribed an antibiotic medicine, take it as told by your health care provider. Do not stop taking the antibiotic even if you start to feel better. Alcohol use Do not drink alcohol if: ?Your health care provider tells you not to drink. ?You are , may be , or are planning to become . If you drink alcohol: ?Limit your use to: ?0 1 drink a day for women. ?0 2 drinks a day for men. ?Know how much alcohol is in your drink. In the [place] one drink equals one 12 oz bottle of beer (355 mL), one 5 oz glass of wine (148 mL), or one 1 oz glass of hard liquor (44 mL). General instructions Eat small, frequent meals instead of large meals. Avoid foods and drinks that make your symptoms worse. Talk with your health care provider about ways to manage stress, such as getting regular exercise or practicing deep breathing, meditation, or yoga. Do not use any products that contain nicotine or tobacco. These products include cigarettes, chewing tobacco, and vaping devices, such as e-cigarettes. If you need help quitting, ask your health care provider. Drink enough fluid to keep your urine pale yellow. Keep all follow-up visits. This is important. Contact a health care provider if: Your symptoms get worse. Your abdominal pain gets worse. Your symptoms return after treatment. You have a fever. Get help right away if: You vomit blood or a substance that looks like coffee grounds. You have black or dark red stools. You are unable to keep fluids down. These symptoms may represent a serious problem that is an emergency. Do not wait to see if the symptoms will go away. Get medical help right away. Call your local emergency services (911 in the [place] Do not drive yourself to the hospital. Summary Gastritis is inflammation of the lining of the stomach that can occur suddenly (acute) or develop slowly over time (chronic). This condition is diagnosed with a medical history, a physical exam, or tests. This condition may be treated with medicines to treat infection or medicines to reduce the amount of acid in your stomach. Follow your health care provider's instructions about taking medicines, making changes to your diet, and knowing when to call for help. This information is not intended to replace advice given to you by your health care provider. Make sure you discuss any questions you have with your health care provider. Document Revised: 11/11/2021 Document Reviewed: 11/11/2021 [employer] Patient Education 2023 [employer] 05/04/2024 11:06:45 Colonoscopy, Care After Surgery [place] (CUSTOM) Colonoscopy Care After Surgery Please read the instructions outlined below and refer to this sheet in the next few weeks. These discharge instructions provide you with general information on caring for yourself after you leave the hospital. Your doctor may also give you specific instructions. While your treatment has been planned according to the most current medical practices available, unavoidable complications occasionally occur. If you have any problems or questions after discharge, please call your doctor. ACTIVITY You may resume your regular activity, but move at a slower pace for the next 24 hours. Take frequent rest periods for the next 24 hours. Walking will help get rid of the air and reduce the bloated feeling in your abdomen (belly). No driving for 24 hours (because of the anesthesia (medicine) used during the test). You may shower. Do not sign any important legal documents or operate any machinery for 24 hours (because of the anesthesia used during the test). NUTRITION Drink plenty of fluids. You may resume your normal diet as instructed by your doctor. Begin with a light meal and progress to your normal diet. Heavy or fried foods are harder to digest and may make you feel nauseated (sick to your stomach). Avoid alcoholic beverages for 24 hours or as instructed. MEDICATIONS You may resume your normal medications unless your doctor tells you otherwise. WHAT YOU CAN EXPECT TODAY Some feelings of bloating in the abdomen. Passage of more gas than usual. Spotting of blood in your stool or on the toilet paper. FOLLOW-UP Your doctor will discuss the results of your test with you. SEEK IMMEDIATE MEDICAL ATTENTION IF: There is more than a spotting of blood in your stool. There is abdominal distention (your abdomen is swollen). There is vomiting. You have a temperature over 101.5 F. There is abdominal pain or discomfort that is severe or gets worse throughout the day. Follow Up Care 04/23/2024 14:05:22 With:Van SEAMAN Address: [address] [place] [address], [facility] [address] [phone]- Business (1) When:1 to 2 weeks [facility] 05-04-2024 Note Patient Education - Text Excuse from Work or School Activity Date: Please excuse from . (Work, School, Physical Activity) He / She was at [facility] for procedure/medical tests/injury/illness and __ may return to work/school/activity with NO restrictions starting: __ may return to work/school/activity but WITH restrictions starting: __ restrictions : _ Signature Date Colonoscopy Care After Surgery Please read the instructions outlined below and refer to this sheet in the next few weeks. These discharge instructions provide you with general information on caring for yourself after you leave the hospital. Your doctor may also give you specific instructions. While your treatment has been planned according to the most current medical practices available, unavoidable complications occasionally occur. If you have any problems or questions after discharge, please call your doctor. ACTIVITY You may resume your regular activity, but move at a slower pace for the next 24 hours. Take frequent rest periods for the next 24 hours. Walking will help get rid of the air and reduce the bloated feeling in your abdomen (belly). No driving for 24 hours (because of the anesthesia (medicine) used during the test). You may shower. Do not sign any important legal documents or operate any machinery for 24 hours (because of the anesthesia used during the test). NUTRITION Drink plenty of fluids. You may resume your normal diet as instructed by your doctor. Begin with a light meal and progress to your normal diet. Heavy or fried foods are harder to digest and may make you feel nauseated (sick to your stomach). Avoid alcoholic beverages for 24 hours or as instructed. MEDICATIONS You may resume your normal medications unless your doctor tells you otherwise. WHAT YOU CAN EXPECT TODAY Some feelings of bloating in the abdomen. Passage of more gas than usual. Spotting of blood in your stool or on the toilet paper. FOLLOW-UP Your doctor will discuss the results of your test with you. SEEK IMMEDIATE MEDICAL ATTENTION IF: There is more than a spotting of blood in your stool. There is abdominal distention (your abdomen is swollen). There is vomiting. You have a temperature over 101.5 F. There is abdominal pain or discomfort that is severe or gets worse throughout the day. Gastroenterology Upper Endoscopy, Adult, Care After After the procedure, it is common to have a sore throat. It is also common to have: ? Mild stomach pain or discomfort. ? Bloating. ? Nausea. Follow these instructions at home: The instructions below may help you care for yourself at home. Your health care provider may give you more instructions. If you have questions, ask your health care provider. ? If you were given a sedative during the procedure, it can affect you for several hours. Do not drive or operate machinery until your health care provider says that it is safe. ? If you will be going home right after the procedure, plan to have a responsible adult: ? Take you home from the hospital or clinic. You will not be allowed to drive. ? Care for you for the time you are told. ? Follow instructions from your health care provider about what you may eat and drink. ? Return to your normal activities as told by your health care provider. Ask your health care provider what activities are safe for you. ? Take goxs-mjy-zmjirzw and prescription medicines only as told by your health care provider. Contact a health care provider if you: ? Have a sore throat that lasts longer than one day. ? Have trouble swallowing. ? Have a fever. Get help right away if you: ? Vomit blood or your vomit looks like coffee grounds. ? Have bloody, black, or tarry stools. ? Have a very bad sore throat or you cannot swallow. ? Have difficulty breathing or very bad pain in your chest or abdomen. These symptoms may be an emergency. Get help right away. Call 911. ? Do not wait to see if the symptoms will go away. ? Do not drive yourself to the hospital. Summary ? After the procedure, it is common to have a sore throat, mild stomach discomfort, bloating, and nausea. ? If you were given a sedative during the procedure, it can affect you for several hours. Do not drive until your health care provider says that it is safe. ? Follow instructions from your health care provider about what you may eat and drink. ? Return to your normal activities as told by your health care provider. This information is not intended to replace advice given to you by your health care provider. Make sure you discuss any questions you have with your health care provider. Document Revised: 10/17/2022 (more content not included)... [facility] 05-04-2024 Note History and Physical Patient: ELMER DURAN Age: 38 years Sex: Female : 1985 Associated Diagnoses: None Author: YUSUF CRONIN, Van Jean Subjective no changes to H & P [facility] Comment on above: Result Comment: Elec tronically Signed By: YUSUF CRONIN, Van Hannon\Date and Time Signed: 05/04/24 11:00 EDT 04-23-2024 Note General Surgery Offi ce/Clinic Note Chief Complaint consultation for positive occult stool HPI Staff 38 year old female presents on consultation for Dr. Page for positive occult stool and gastritis. Reports long standing history of lower abdominal pain. Describes pain as a constant ache with occasional sharp pain. Verbalized associated nausea with rare vomiting. Reports daily heartburn, has been taking Protonix 40mg daily for approximately one month without change in symptoms. Denies rectal pain or bleeding. Reports longstanding history of loose stools. Never had EGD or colonoscopy in the past. Grandfather with history of colon cancer, diagnosed age 70's. History of Present Illness 38 yo female with h/o migraines, cervical radiculopathy, referred for epigastric and bilateral lower abd pain, intermittent nausea, occasional emesis after eating, no food triggers; early satiety, no dysphagia or odynophagia; no improvement with Protonix; long h/o alternating diarrhea and constipation, no gross blood in stools; positive fecal occult blood test; abdominal operations significant for LS salpingo-oophorectomy and hysterectomy; no previous EGD or colonoscopy; on Diclofenac daily, no asa; smokes daily; no fmhx of GI malignancy or IBD. Review of Systems PHQ Score Initial Depression Screen Score: 0 SCORE ROS - Provider Constitutional: no fever, no sweats, no weight loss. Eyes: yes glasses, no blurred vision, no visual loss. ENMT: no dentures, no hoarseness, no swallowing difficulties, no hearing loss, no ear infection(s), no nose bleeds. Cardiovascular: normal blood pressure, no chest pain, regular heartbeat, no heart murmur. Respiratory: no shortness of breath, no cough, no asthma, no wheezing. Gastrointestinal: no nausea, no vomiting, no diarrhea, no constipation, no blood in stool, no change in bowel habits, no abdominal pain, no hepatitis. Genitourinary: no kidney stones, no urine infection, no dysuria. Musculoskeletal: no pain, no weakness. Skin: no changing moles, no rash, no skin lumps. Neurologic: no seizures, no epilepsy, no headache. Psychiatric: no emotional or psychiatric problem. Heme/Lymph: no bleeding problems, no anemia, no blood clots, no transfusions. Allergy/Immunologic: no swollen lymph nodes/glands, no IV drug abuse. Other: Additional ROS info: Except as noted in the above Review of Systems and in the History of Present Illness, all other systems have been reviewed and are negative or noncontributory. Physical Exam Vitals & Measurements HR: 59(Peripheral) RR: 16 BP: 135/88 HT: 66 in HT: 167.6 cm WT: 90.8 kg WT: 199.76 lb BMI: 32.32 HEENT: normal conjunctiva, sclera clear, no scleral icterus, EOM intact, PERRLA, oral mucosa moist without lesions. Neck: trachea midline, no mass, symmetric, no thyromegaly or nodules, no adenopathy Respiratory: lungs CTA, respirations non labored. Cardiovascular: regular rate and rhythm, no murmur, no pedal edema or varicosities. Gastrointestinal: obese, soft, non distended, no tenderness, no masses, no palpable hernias, diastasis recti no, no hepatosplenomegaly; normal bs Lymphatic: no cervical adenopathy, no supraclavicular adenopathy. Musculoskeletal: normal gait, digits and nails without infection, nodes, cyanosis, clubbing. Skin: no rashes, no lesions, no ulcers, no subcutaneous nodules, induration. Psychiatric/Neuro: oriented to time, place, person, judgement normal, affect appropriate for age, insight intact, no focal deficits. Tests: labs reviewed,review of old records completed , Discussed surgical options, risks, and possible complications with patient. Assessment/Plan 1. Epigastric pain (R10.13: Epigastric pain) plan EGD and colonoscopy under anesthesia for further evaluation, informed consent obtained. 2. Nausea and vomiting (R11.2: Nausea with vomiting, unspecified) see # 1 3. Early satiety (R68.81: Early satiety) see # 1 4. Alternating constipation and diarrhea (R19.8: Other specified symptoms and signs involving the digestive system and abdomen) see # 1 5. Positive fecal occult blood test (R19.5: Other fecal abnormalities) see # 1 Follow-up No qualifying data available Problem List/Past Medical History Ongoing Alternating constipation and diarrhea BMI 32.0-32.9,adult Cervical radiculopathy Early satiety Epigastric pain Migraine Nausea and vomiting Obesity due to excess calories Positive fecal occult blood test Positive occult stool blood test Historical No qualifying data Procedure/Surgical History Arthroscopy of knee, Dilation and curettage, Dilation and curettage, Extraction of wisdom tooth, Laparoscopic salpingo-oophorectomy, Nose reconstruction, VH - Vaginal hysterectomy. Medications diclofenac sodium 75 mg Oral EC Tab, 75 mg= 1 tab(s), Oral, BID Evamist, 1 spray(s), TransDermal, Daily Fioricet, 1 tab(s), Oral, q4hr, PRN Protonix 40 mg Tab-DR, 40 mg= 1 tab(s), Oral, Daily semaglutide 0.5 mg/0.5 mL (0.5 mg (more content not included)... [facility] Comment on above: Result Comment: Elec tronically Signed By: YUSUF CRONIN, Van Hannon\Date and Time Signed: 04/23/24 14:15 EDT Evaluation + Plan note Future Appointments Appointment Date:05/04/2024 11:00:00 AM Scheduled Provider: Location:[facility] Appointment Type:Surgery [facility] [place] [facility] course Narrative No data available for this section [facility] Discharge instructions No data available for this section [facility] [place] Progress note No data available for this section [facility] [place] Summary Purpose Family History No Family History Records FoundNo Family History Records FoundNo Family History Records Found No data available for this section No data available for this section No Family History Records Found Advance Directives No Advanced Directives Records FoundNo Advanced Directives Records FoundNo Advanced Directives Records FoundNo Advanced Directives Records Found Additional Source Comments INFORMATION SOURCE (unrecogn ized section and content) DATE CREATED AUTHOR 03/04/2019 [facility] DATE CREATED AUTHOR AUTHOR'S ORGANIZ ATION 07/17/2022 [facility] DATE CREATED AUTHOR AUTHOR'S ORGANIZ ATION 07/06/2023 [facility] DATE CREATED AUTHOR AUTHOR'S ORGANIZ ATION 05/08/2024 [facility] Patient Care team informatio n (unrecognized section and content) Personnel Name: Dariana Page MD Address: Address: [address] [place] [address] Personnel Name: Dariana Page MD Address: Address: [address] [place] [address] FOR RECORDS PERTAINING TO PATIENTS WHO ARE [...] BE BASED ON THE PRIMARY CLINICAL RECORDS. [facility] [employer] [facility]. provides no warranty or guarantee of the accuracy or completeness of information in this document.
--- NOTE | 2024-05-08 15:57 | CT_ITS ---
The [address] [address] Patient Name: ELMER DURAN MRN: [id number] date: 1985 Sex: F Assigned Patient Location: CT Current Patient Location: Accession/Order Number: [id number] Exam Date: 05/08/2024 15:44 Report Date: 05/11/2024 15:11 At the request of: DARIANA BORJAS Procedure: CT abdomen pelvis w con EXAMINATION: CT abdomen pelvis w con HISTORY: Gastritis nausea, vomiting COMPARISON: No relevant comparison available. TECHNIQUE: CT images were created with IV contrast. Axial, Coronal, and Sagittal images. Dose reduction techniques were achieved by using automated exposure control and/or adjustment of mA and/or kV according to patient size and/or use of iterative reconstruction technique. FINDINGS: LUNG BASES: No visible pulmonary or pleural disease. LIVER: Focal hypodensity at the falciform likely fatty infiltration BILIARY: No visible dilatation or calcification. PANCREAS: No lesion, fluid collection, ductal dilatation, or atrophy. SPLEEN: No enlargement or focal lesion. ADRENALS: No mass or enlargement. KIDNEYS: No mass, obstruction, or calcification. Left renal cortical hypodensity likely a cortical cyst. BOWEL/MESENTERY: No visible mass, obstruction, or bowel wall thickening. Normal appendix AORTA/VASCULAR: No aneurysm or dissection. RETROPERITONEUM: No mass or adenopathy. LYMPH NODES: No adenopathy. URINARY BLADDER: No visible focal wall thickening, lesion, or calculus. PELVIC ORGANS: Hysterectomy ABDOMINAL WALL: No mass or hernia. BONES: No bony lesion or fracture. OTHER: Negative. CT/CT abdomen pelvis w con IMPRESSION: No acute intraperitoneal abnormality Electronically authenticated by: ELLEN MENDEZ Date: 05/11/2024 15:11
== END 2024-05-08 14:48 | disposition home or self-care (01) ==
LOC: CT 14:47
PROVIDERS: PCP Family Medicine; Visit Provider Family Medicine
DX: K29.70 Gastritis, unspecified, without bleeding (principal)
CPT/HCPCS: 74177; Q9967

== ENCOUNTER 2024-05-12 14:12 | Outpatient (OUT) | payer OTHER, SELFPAY ==
[2024-05-12 14:40] LABS: Basophils Absolute Auto 0.1 10^3/uL (0.0-0.1); Basophils Percent Auto 1.3 % (0.2-2.0); Eosinophils Absolute Auto 0.4 10^3/uL (0.0-0.7); Eosinophils Percent Auto 4.5 % (0.9-7.0); Hematocrit 41.8 % (36.0-48.0); Hemoglobin 13.7 g/dL (12.0-16.0); Immature Granulocytes Abs Auto 0.02 10^3/uL (0.00-0.03); Immature Granulocytes Pct Auto 0.3 % (0.0-0.5); Lymphocytes Absolute Auto 2.5 10^3/uL (1.2-3.8); Lymphocytes Percent Auto 31.4 % (20.5-60.0); Mean Corpuscular HGB Conc 32.8 g/dL (29.9-35.2); Mean Corpuscular Hemoglobin 31.5 pg (26.7-34.0); Mean Corpuscular Volume 96.1 fL (81.0-99.0); Monocytes Absolute Auto 0.5 10^3/uL (0.3-0.8); Monocytes Percent Auto 5.9 % (1.7-12.0); Neutrophils Absolute Auto 4.5 10^3/uL (1.4-6.5); Neutrophils Percent Auto 56.6 % (43.0-75.0); Platelet Count 328 10^3/uL (150-450); Red Blood Count 4.35 10^6/uL (4.20-5.40); Red Cell Distribution Width 11.9 % (11.0-15.0); White Blood Count 7.9 10^3/uL (4.0-11.0)
[2024-05-12 15:23] LABS: Alanine Aminotransferase 89 U/L (14-59); Albumin Globulin Ratio 0.9; Albumin Level 3.7 g/dL (3.4-5.0); Alkaline Phosphatase 100 U/L (46-116); Amylase 38 U/L (25-115); Anion Gap 13.7; Aspartate Amino Transferase 32 U/L (15-37); BUN Creatinine Ratio 13.6; Bilirubin Total 0.5 mg/dL (0.2-1.0); Calcium 9.5 mg/dL (8.5-10.1); Carbon Dioxide 29.7 mmol/L (21.0-32.0); Chloride 104 mmol/L (98-107); Estimated GFR (African America >60 (>=60 mL/min/1.73m^2); Estimated GFR (Non-African Ame 60 (>=60 mL/min/1.73m^2); Globulin 4.1 g/dL; Glucose 96 mg/dL (74-106); Potassium 4.4 mmol/L (3.5-5.1); Sodium 143 mmol/L (136-145); Total Protein 7.8 g/dL (6.4-8.2)
== END 2024-05-12 14:13 | disposition home or self-care (01) ==
LOC: LAB 14:13
PROVIDERS: PCP Family Medicine; Visit Provider Family Medicine
DX: K29.70 Gastritis, unspecified, without bleeding (principal); R79.89 Other specified abnormal findings of blood chemistry; R10.9 Unspecified abdominal pain
CPT/HCPCS: 36415; 80053; 82150; 83690; 85025

== ENCOUNTER 2024-10-01 15:39 | Outpatient (OUT) | payer OTHER, SELFPAY ==
--- NOTE | 2024-10-01 15:43 | XR_ITS ---
The [place] [id number] Patient Name: ELMER DURAN MRN: [id number] date: 1985 Sex: F Assigned Patient Location: [facility] Current Patient Location: [facility] Accession/Order Number: [id number] Exam Date: 10/01/2024 16:07 Report Date: 10/01/2024 16:08 At the request of: DARIANA BORJAS MD Procedure: XR hip LT 2V w/ pelvis AP pelvis with 2 views left hip. Reason for exam: Left hip pain. No known injury. COMPARISON: None. FINDINGS: No acute bony process is seen. Calcification involving the region of the labrum of the left hip suggestive of prior injury. Minimal degenerative change. No hip fracture. XR/XR hip LT 2V w/ pelvis IMPRESSION: Minimal degenerative changes involving the left hip without acute bony process. Impression dictated by: Arnoldo Rdz Jr., DSvitlanaOSvitlana10/01/2024 4:08 PM Dictation Location: [place] [address] Electronically authenticated by: [id number] Y Date: 10/01/2024 16:08
--- OUTSIDE RECORDS SUMMARY | 2024-10-01 15:48 | XMS_ITS | CCD ---
Author Organization [facility] Care Team Providers Care Olive Grader Name Role Phone DR DARIANA PAGE Attending Unavailable HOY, DR WESTBROOK Admitting Unavailable HOY, DR WESTBROOK Primary Care Unavailable ASHOK CERVANTES Admitting Unavailable WEST, DR ELLEN Richards Consulting Unavailable ASHOK CERVANTES Attending Unavailable JESSICAY, DR WESTBROOK Primary Care Unavailable ASHOK CERVANTES [...] NOHEMYCALLIE WEBSTER F Attending Unavail able NOHEMYCALLIE WEBSTER F Referring Unavail able NOHEMY CALLIE RAMIREZ F Referring Unavail able HOY, DARIANA M Primary Care Unavailable Dariana Page Primary Care Physician Van SEAMAN Attending Unavailable Van SEAMAN Referring Unavailable Van SEAMAN Attending Unavailable Van SEAMAN Admitting Unavailable Dariana Page Referring Unavailable Van SEAMAN Attending Unavailable Allergies Allergy Classification Reported Allergen(s) Allergy Type Date of Onset Reaction(s) Facility (3 sources) Cefaclor; Translations: [Ceclor] Drug Allergy 3 [facility] Repository (3 sources) celecoxib; Translations: [CeleBREX] Drug Allergy 3 [facility] Rep[facility] (3 sources) Morphine; Translations: [morphine] Drug Allergy 4 [facility] Rep[facility] (3 sources) Naproxen; Translations: [Aleve] Drug Allergy 3 [facility] Rep[facility] (3 sources) Cefaclor; Translations: [cefaclor] Drug Allergy Weal (disorder) [facility] (3 sources) celecoxib; Translations: [celecoxib] Drug Allergy Weal (disorder) [facility] (4 sources) Cephalexin; Translations: [cephalexin] Drug Allergy Anaphylaxis (disorder) [facility] (3 sources) Morphine; Translations: [morphine] Drug Allergy Anaphylaxis (disorder) [facility] (3 sources) Naproxen; Translations: [naproxen] Drug Allergy Nausea and vomiting (disorder) [facility] Medications Current Medications Medication Drug Class(es) Dates Sig (Normalized) Sig (Original) 0.5 ML semaglutide 1 MG/ML Auto-Injector (3 sources) Start: 04-15-2024 inject 0.5 mg by subcutaneous injection every week semaglutide 0.5 mg/0.5 mL (0.5 mg dose) subcutaneous solution 0.5 mg, SubCutaneous, qWeek, Refills(s) 0 Start Date: 04/15/24 Status: Ordered Fioricet (3 sources) Barbiturate, Central Nervous System Stimulant, Methylxanthine Start: 04-23-2024 take 1 tablet by mouth every four hours Fioricet 1 tab(s), Oral, q4hr Headache, Refill(s) 0 Start Date: 04/23/24 Status: Ordered diclofenac sodium 75 mg delayed release oral tablet (3 sources) Nonsteroidal Anti-inflammatory Drug Start: 04-15-2024 take [...] 0 Start Date: 04/15/24 Status: Ordered Evamist (3 sources) Estrogen Start: 04-23-2024 Evamist = 1 spray(s), TransDermal, Daily, Refills(s) 0 Start Date: 04/23/24 Status: Ordered pantoprazole 40 mg delayed release oral tablet (3 sources) Proton Pump Inhibitor Start: 04-15-2024 take 1 tablet by mouth once daily Protonix 40 mg Tab-DR 40 mg = 1 tab(s), Oral, Daily, Refills(s) 0 Start Date: 04/15/24 Status: Ordered sucralfate 1000 mg oral tablet (2 sources) Aluminum Complex Start: 05-04-2024 take 1 tablet by mouth four times daily Carafate 1 gram Tab 1 gm = 1 tab(s), Oral, QID, # 120 tab(s), Refills(s) 3, Pharmacy: [facility]/pharmacy #[id number], 167.6, cm, 05/04/24 9:41:00 EDT, Height/Length Dosing, 90.8, kg, 05/04/24 9:41:00 EDT, Weight Dosing Start Date: 05/04/24 Status: Ordered tiZANidine 4 mg oral tablet (3 sources) Central alpha-2 Adrenergic Agonist Start: 04-15-2024 take 2 tablets by mouth at bedtime tiZANidine 4 mg Tab 8 mg = 2 tab(s), Oral, Bedtime, Refills(s) 0 Start Date: 04/15/24 Status: Ordered Problems Active Problems Problem Classification Problem Date Documented Da te Episodic/Chronic Abdominal hernia (2 sources) Diaphragmatic hernia; Translations: [Diaphragmatic hernia without obstruction or gangrene] Onset: 10-14-202 4 Episodic Abdominal pain (5 sources) Pelvic and perineal pain; Translations: [Epigastric pain] Onset: 3 Episodic Esophageal disorders (3 sources) Gastroesophageal reflux disease without esophagitis; Translations: [Gastro-esophageal reflux disease without esophagitis] Onset: 4 Chronic Gastritis and duodenitis (2 sources) Chronic gastritis; Translations: [Unspecified chronic gastritis without bleeding] Onset: 4 Chronic Gastritis and duodenitis (2 sources) Gastritis; Translations: [Other gastritis without bleeding] Onset: 4 Episodic Headache; including migraine (3 sources) Migraine 04-15-2024 Chronic Malaise and fatigue (4 sources) Other fatigue; Translations: [OTHER FATIGUE] Onset: 2 Episodic Nausea and vomiting (5 sources) Nausea; Translations: [Nausea and vomiting] Onset: [...] abdomen] Onset: 4 Episodic Other gastrointestinal disorders (3 sources) Constipation alternates with diarrhea 04-23-2024 Episodic Other gastrointestinal disorders (6 sources) Occult blood in stools 04-15-2024 Episodic Other nervous system disorders (1 source) Other chronic pain; Translations: [Other chronic pain] Onset: 3 Chronic Other nervous system disorders (1 source) Other acute postprocedural pain; Translations: [Other acute postprocedural pain] Onset: 3 Episodic Other nutritional; endocrine; and metabolic disorders (3 sources) Body mass index 30+ - obesity 04-23-2024 Chronic Other nutritional; endocrine; and metabolic disorders (3 sources) Obesity caused by energy imbalance 04-15-2024 Chronic Other screening for suspected conditions (not mental disorders or infectious disease) (3 sources) Abnormal results of liver function studies; Translations: [Screening for malignant neoplasm of colon done] Onset: 2 Episodic Residual codes; unclassified (4 sources) Early satiety; Translations: [Early satiety] Onset: 4 Episodic Residual codes; unclassified (1 source) Tobacco user 05-26-2024 Episodic Spondylosis; intervertebral disc disorders; other back problems (7 sources) Radiculopathy, cervical region; Translations: [Cervical radiculopathy] [...] Test Name Value Interpretation Reference Range Facility General Surgery Office/Clini c Noteon 05-26-2024 General Surgery Office/Clinic Note General Surgery Office/Clinic Note Chief Complaint post operative follow up HPI Staff 22 day post operative follow up post EGD with antral biopsy and colonoscopy. Carafate added post EGD, she is not taking medication as she felt this made nausea and vomiting worse. History of Present Illness s/p EGD and colonoscopy; EGD with hiatal hernia and antral gastritis, bx with reactive changes, negative for H pylori; normal colon; patient still with pain and intermittent nausea, early satiety; Protonix increased to bid with improvement in GERD, unable to take Carafate due to increased nausea; recent abd/pelvic ct scan wnl; images reviewed, distended stomach; patient on Semaglutide since January. Review of Systems PHQ Score Initial Depression Screen Score: 0 SCORE ROS - Provider Constitutional: no fever, no sweats, no weight loss. Eyes: no glasses, no blurred vision, no visual loss. [...] been reviewed and are negative or noncontributory. Assessment/Plan 1. Hiatal hernia with GERD (K44.9: Diaphragmatic hernia without obstruction or gangrene) continue PPI bid; recommend discontinuing semaglutide since likely exacerbating her GI symptoms; if no improvement, would recommend gastric emptying study, possibly gastroenterology referral; call with problems/questions. 2. Antral gastritis (K29.50: Unspecified chronic gastritis without bleeding) see # 1 Gastro-esophageal reflux disease without esophagitis (K21.9: Gastro-esophageal reflux disease without esophagitis) Follow-up No qualifying data available Problem List/Past Medical History Ongoing Alternating constipation and diarrhea Antral gastritis BMI 32.0-32.9,adult Cervical radiculopathy Early satiety Epigastric pain Hiatal hernia with GERD Migraine Nausea and vomiting Obesity due to excess calories Positive fecal occult blood test Positive occult stool blood test Historical No qualifying data Procedure/Surgical History Colonoscopy (05/04/2024), Esophagogastroduodenoscopy (05/04/2024), Arthroscopy of knee, Dilation and curettage, Dilation and curettage, Extraction of wisdom tooth, Laparoscopic salpingo-oophorectomy, Nose reconstruction, VH - Vaginal hysterectomy. Medications Carafate 1 gram Tab, 1 gm= 1 tab(s), Oral, QID, 3 refills diclofenac sodium 75 mg Oral EC Tab, 75 mg= 1 tab(s), Oral, Once a day (at bedtime), PRN, Self Directed Evamist, 1 spray(s), TransDermal, Daily Fioricet, 1 tab(s), Oral, q4hr, PRN, Self Directed Protonix 40 mg Tab-DR, 40 mg= 1 tab(s), Oral, Daily semaglutide 0.5 mg/0.5 mL (0.5 mg dose) subcutaneous solution, 0.5 mg, SubCutaneous, qWeek tiZANidine 4 mg Tab, 8 mg= 2 tab(s), Oral, Bedtime Allergies Aleve (Nausea and vomiting) Ceclor (Hives) CeleBREX (Hives) Keflex (Anaphylaxis) morphine (Anaphylaxis) Social History Alcohol Current. Beer, Liquor. 1-2 times per week., 05/26/2024 Substance Abuse - Denies Substance Abuse, 04/23/2024 Never., 05/26/2024 Tobacco 4 or less cigarettes(less than 1/4 pack)/day in last 30 days Tobacco Use:., 05/26/2024 Family History Family history is negative Normal [facility] Comment on above: Result Comment: Elec tronically Signed By: YUSUF CRONIN, Van Jean\.br\Date and Time Signed: 05/26/24 16:24 EST Surgical Pathology Reporton 05-08-2024 Surgical Pathology Report [address] [address]- Surgical Pathology Report Collected Date/Time: 05/04/2024 10:34 EDT Pathologist: Regis CRONIN PhD, Valeria Yuan Date/Time: 05/04/2024 12:18 EDT YUSUF CRONIN, Van SEAMAN MD, Van Castillo Surgical Pathology Report - 05/08/2024 16:31 EDT - Auth (Verified) Final Diagnosis ANTRUM, BIOPSY: - ANTRAL MUCOSA WITH MILD CHRONIC INACTIVE GASTRITIS, NONSPECIFIC BUT COMPATIBLE WITH REACTIVE GASTROPATHY. - NO INTESTINAL METAPLASIA IDENTIFIED. - NO H. PYLORI MICROORGANISMS IDENTIFIED WITH IMMUNOSTAIN. (Electronic Signature) Valeria Stacy MD PhD 05/08/2024 16:31 Clinical Information Abdominal pain, epigastric pain, positive cologuard Pre-Op Diagnosis: Abdominal pain, epigastric pain, positive cologuard Procedure: EGD Post-Op Diagnosis: Specimen(s) Received Antral biopsy Gross Description Received in formalin, labeled with patient name, number and antral biopsy are two fragments of españa-pink tissue, each measuring 0.4 cm. Specimen is entirely submitted in one cassette. (DC) DC:RUFUS Microscopic Description Microscopic examination performed unless gross only specified. The use of one or more reagents in the above tests is regulated as an analyte specific reagent (ASR). The test or tests are ordered following initial H&E microscopic examination. The performance characteristics were determined by the [facility] Surgical Pathology. They have not been cleared or approved by the [place] Food and Drug Administration. The FDA has determined that such clearance or approval is not necessary. These tests are used for clinical purposes. They should not be regarded as investigational or for research. Appropriate positive and negative controls are performed and are acceptable. Normal [facility] Comment on above: Performed By: #### [id number] #### [facility] [address] [place] [address] Discharge Instructionson Discharge Instructions Discharge Instructions ELMER DURAN Mahamed :1985 Visit Date:05/04/2024 Inpatient Discharge Instructions Your [...] When: Within 1 to 2 weeks Where: [address] [place] [address], [facility] [address] [address] Business (1) Medications What How Much When Why Instructions Next Dose New sucralfate (Carafate 1 gram Tab) 1 Tablets By Mouth 4 times a day Bile reflux gastritis Refills: 3 Pickup at [facility]/pharmacy #[id number] Unchanged APAP/ butalbital/ caffeine (Fioricet) 1 Tablets [...] Tablets By Mouth At bedtime Pharmacy Information [facility]/pharmacy #[id number]: [address], [place] [phone] Test Results No qualifying data available. Allergies [...] activities are safe for you. ? Take cmgd-wzd-msakjza and prescription medicines only as told by your health care provider. Contact a health care provider if you: ? Have a sore throat that lasts longer than one day. (more content not included)... Normal [facility] Comment on above: Result Comment: Elec tronically Signed By: Rain CRUZ, Christa\.br\Date and Time Signed: 05/06/24 11:02 EDT Main OR Intraoperative Recor don 05-05-2024 Main OR Intraoperative Record Main OR Intraoperative Record IntraOp Document Type FT Summary Primary Physician: Van SEAMAN MD Finalized Date/Time: 05/05/24 10:28:59 Pt. Name: ELMER DURAN/Sex: 1985 Female Med Rec #: [id number] Physician: Van SEAMAN MD Financial #: [id number] Pt. Type: O Room/Bed: / Admit/Disch: 05/04/24 [...] RN, Van Barnes MD Role Performed Anesthesiologist [employer] Hoops Trainer - Primary Surgeon - Primary Radar Repairer Time In 05/04/24 10:27:00 05/04/24 10:27:00 05/04/24 [...] and tissue Entry 1 Skin Integrity Intact, Wisner, Warm, & Skin Abnormality No Dry Outcomes Met? Yes Last Modified By: Avinash CRUZ Migdalia Mary 05/04/24 10:30:24 Post-Care Text: The patient is free from signs and symptoms of injury caused by extraneous objects Patient Positioning FT Pre-Care Text: Identifies physical alterations that require additional precautions for procedure-specific positioning, verifies presence of prosthetics or corrective devices, positions the patient, evaluates the patient for signs and symptoms of injury as a result of positioning (more content not included)... Normal [facility] Reminderson 05-05-2024 Reminders Reminders From: Elina Newman LPN To: N - Clinical; Sent: 05/05/2024 10:17:05 EDT Show up: 04/04/2034 07:00:00 EDT Subject: colonoscopy recall Due Date/Time: 05/04/2034 07:00:00 EDT Reminder/Recall Patient due for screening colonoscopy 05/04/2034. Normal [facility] Discharge Instructionson Discharge Instructions Discharge Instructions ELMER [...] When: Within 1 to 2 weeks Where: [address] [place] [address], [facility] [address] [address]- Business (1) Medications What How Much When Why Instructions Next Dose New sucralfate (Carafate 1 gram Tab) 1 Tablets By Mouth 4 times a day Bile reflux gastritis Refills: 3 Pickup at [facility]/pharmacy #[id number] Unchanged APAP/ butalbital/ caffeine (Fioricet) 1 Tablets [...] Tablets By Mouth At bedtime Pharmacy Information [facility]/pharmacy #[id number]: [address], [place] [phone] Test Results No qualifying data available. Allergies [...] Physical Activity) He / She was at [facility] for procedure/medical tests/injury/illness and __ may [...] will be (more content not included)... Normal [facility] Comment on above: Result Comment: Elec tronically Signed By: Rain CRUZ, Anna.br\Date and Time Signed: 05/04/24 11:09 EDT Inpatient Patient Summaryon 05-04-2024 Inpatient Patient Summary Inpatient Patient Summary [address] [address] [facility] Clinical Discharge Instructions PERSON INFORMATION Name: ELMER DURAN [facility]#:[id number] PHYSICIANS Admitting Physician: Van SEAMAN MD Attending Physician: Van SEAMAN MD PCP: Kaylee CRONIN, Dariana Discharge Diagnosis: Antral gastritis; Bile reflux gastritis; Encounter for colorectal cancer screening; Encounter for screening for malignant neoplasm of rectum; Gastro-esophageal reflux disease without esophagitis; Hiatal hernia with GERD without esophagitis Comment: PATIENT EDUCATION INFORMATION Instructions: Medication Leaflets: Follow up: With: Address: When: Van SEAMAN [address] [place] [address], [address], [address] [address] Business (1) Within 1 to 2 weeks MEDICATION LIST New Medications [id number], [address] [place], [place] [phone], [phone] sucralfate (Carafate 1 gram Tab) 1 Tablets [...] Tablets By Mouth at bedtime. Comment: Normal [facility] Main OR PACU II Recordon Main OR PACU II Record Main OR PACU II Record PACU Phase II Document Type FT Summary Primary Physician: Van SEAMAN MD Finalized Date/Time: 05/04/24 11:40:24 Pt. Name: ELMER DURAN Mahamed Rothman./Sex: 1985 Female Med Rec #: [id number] Physician: Van SEAMAN MD Financial #: [id number] Pt. Type: O Room/Bed: / Admit/Disch: 05/04/24 [...] By: Christa Rodrigez RN 05/04/24 11:40 Normal [facility] Main OR Preoperative Recordo n 05-04-2024 Main OR Preoperative Record Main OR Preoperative Record Holding Area Document Type FT Summary Primary Physician: Van SEAMAN MD Finalized Date/Time: 05/04/24 09:44:39 Pt. Name: ELMER DURAN Mahamed MarinB./Sex: 1985 Female Med Rec #: [id number] Physician: Van SEAMAN MD Financial #: [id number] Pt. Type: O Room/Bed: / Admit/Disch: 05/04/24 [...] By: Mariana Costello RN 05/04/24 09:44 Normal [facility] Operative Reporton Operative Report Operative Report Patient: [...] Diagnosis: Hiatal hernia with GERD without esophagitis ([id number] K44.9, Discharge, Medical), Gastro-esophageal reflux disease without esophagitis ([id number] K21.9, Discharge, Medical). Course: Progressing as expected. Education and Follow-up: Counseled: Family. [facility] Comment on above: Result Comment: Elec tronically Signed By: YUSUF CRONIN, Van Jean\.br\Date and Time Signed: 05/04/24 20:04 EDT Other Comment: Harleen hunter Attachment - attachment storage system not supported [id number] Can be viewed in source systemMissing Attachment - attachment storage system not supported [id number] Can be viewed in source systemMissing Attachment - attachment storage system not supported [id number] Can be viewed in source systemMissing Attachment - attachment storage system not supported [id number] Can be viewed in source systemMissing Attachment - attachment storage system not supported [id number] Can be viewed in source system Outpatient Surgery Discharge Instructionon 05-04-2024 Outpatient Surgery Discharge Instruction Outpatient Surgery Discharge Instruction [place] [id number] Patient Discharge Instructions PERSON INFORMATION Name: ELMER [...] Date Follow up: With: Address: When: [address] [place], [address], [facility] [address] [place] [address] Business (1) Within 1 to 2 weeks Pharmacy Information: You may receive a survey from Raysa Barreto asking you to rate your care experience. Your feedback is important and will help us understand what we do well and how we can improve the quality of care we provide to you, your loved ones and our community. It?s an honor to serve you. Thank you for choosing [facility] HERE ARE THE MEDICATION CHANGES THAT OCCURRED DURING YOUR HOSPITAL STAY New Medications [id number], [address] [place] [phone], [phone] sucralfate (Carafate 1 gram Tab) 1 Tablets [...] bedtime. PATIENT EDUCATION INFORMATION Instructions: Medication Leaflets: Coni [facility] Ambulatory Visit Summaryon 1 Ambulatory Visit Summary Ambulatory Visit Summary ELMER DURAN :1985 Visit Date:04/23/2024 Ambulatory Visit Instructions Your Diagnosis Positive fecal occult blood test Your Care Team Attending Physician - Van SEAMAN MD Primary Care Physician - Dariana Page MD [...] for choosing us for your care. Normal [facility] CT PELVIS W CONTRASTon 07-04 CT PELVIS [...] Mahesh Esteban MD 07/04/23 Final result Normal [place] CBC with Diffon 06-18-2023 Abs. Basophil 0.08 k/uL Normal 0.00-0.20 [place] Comment on above: Performed By: #### C DP, CP #### [address] [place] [id number] Bricklayer: Ellen Fregoso MD Abs.Imm.Granulocyt e 0.05 k/uL Normal 0.00-0.30 [place] Comment on above: Performed By: #### C DP, CP #### [address] [place] [address] Bricklayer: Ellen Fregoso MD Abs.Neutrophil (Seg) 5.11 k/uL Normal 1.50-8.10 [place] Comment on above: Performed By: #### C DP, CP #### [address] [place], [place] [address] Bricklayer: Ellen Fregoso MD Basophils/100 WBC (Bld) 1 % Normal 0-2 [place] Comment on above: Performed By: #### C DP, CP #### [address] [place], [place] [address] Bricklayer: Ellen Fregoso MD Eosinophils (Bld) [#/Vol] 0.51 10*3/uL High 0.00-0.44 [place] Comment on above: Performed By: #### C DP, CP #### [address] [place], [facility]83 Bricklayer: Ellen Fregoso MD Eosinophils/100 WBC (Bld) 6 % High 1-4 [place] Comment on above: Performed By: #### C DP, CP #### [address] [place] [id number] Bricklayer: Ellen Fregoso MD Erythrocyte distribution width (RBC) [Ratio] 12.0 % Normal 11.8-14.4 [place] Comment on above: Performed By: #### C DP, CP #### [facility] [address] [place] [address] [place], [place] [id number] Bricklayer: Ellen Fregoso MD Hematocrit (Bld) [Volume fraction] 44.2 % Normal 36.3-47.1 [place] Comment on above: Performed By: #### C DP, CP #### [facility] [address] [place] [address] [place], [place] [id number] Bricklayer: Ellen Fregoso MD Hemoglobin (Bld) [Mass/Vol] 14.4 g/dL Normal 11.9-15.1 [place] Comment on above: Performed By: #### C DP, CP #### [address] [place], [facility]83 Bricklayer: Ellen Fregoso MD Immature granulocytes/100 WBC (Bld) 1 % High 0 [place] Comment on above: Performed By: #### C DP, CP #### [address] [place], [place] [id number] Bricklayer: Ellen Fregoso MD Lymphocytes (Bld) [#/Vol] 2.13 10*3/uL Normal 1.10-3.70 [place] Comment on above: Performed By: #### C DP, CP #### [facility] [address] [place] [address] [place], [place] [id number] Bricklayer: Ellen Fregoso MD Lymphocytes/100 WBC (Bld) 25 % Normal 24-43 [place] Comment on above: Performed By: #### C DP, CP #### [address] [place], [place] [id number] Bricklayer: Ellen Fregoso MD MCH (RBC) [Entitic mass] 31.8 pg Normal 25.2-33.5 [place] Comment on above: Performed By: #### C DP, CP #### [facility] [address] [place], [place] [address] Bricklayer: Ellen Fregoso MD MCHC (RBC) [Mass/Vol] 32.6 g/dL Normal 28.4-34.8 [place] Comment on above: Performed By: #### C DP, CP #### [facility] [address] [place], [place] [address] Bricklayer: Ellen Fregoso MD MCV (RBC) [Entitic vol] 97.6 fL Normal 82.6-102.9 [place] Comment on above: Performed By: #### C DP, CP #### [address] [place] [id number] Bricklayer: Ellen Fregoso MD Monocytes (Bld) [#/Vol] 0.64 10*3/uL Normal 0.10-1.20 [place] Comment on above: Performed By: #### C DP, CP #### [address] [place] [address] Bricklayer: Ellen Fregoso MD Monocytes/100 WBC (Bld) 8 % Normal 3-12 [place] Comment on above: Performed By: #### C DP, CP #### [facility] [address] [place], [place] [address] Bricklayer: Ellen Fregoso MD Neutrophil (Seg) 59 % Normal 36-65 [place] Comment on above: Performed By: #### C DP, CP #### [facility] [address] [place] [address] Bricklayer: Ellen Fregoso MD NRBC Automated 0.0 per 100 WBC Normal 0.0 [place] Comment on above: Performed By: #### C DP, CP #### [facility] [address] [place], [facility]83 Bricklayer: Ellen Fregoso MD Platelet mean volume (Bld) [Entitic vol] 9.0 fL Normal 8.1-13.5 [place] Comment on above: Performed By: #### C DP, CP #### [facility] [address] [place] [address] Bricklayer: Ellen Fregoso MD Platelets (Bld) [#/Vol] 334 10*3/uL Normal 138-453 [place] Comment on above: Performed By: #### C DP, CP #### [facility] [address] [place] [address] Bricklayer: Ellen Fregoso MD RBC (Bld) [#/Vol] 4.53 10*6/uL Normal 3.95-5.11 [place] Comment on above: Performed By: #### C DP, CP #### [address] [place], SURGICAL [facility]83 Bricklayer: Ellen Fregoso MD WBC (Bld) [#/Vol] 8.5 10*3/uL Normal 3.5-11.3 [place] Comment on above: Performed By: #### C DP, CP #### [address] [place] [address] Bricklayer: Ellen Fregoso MD Comp Metabolic Profon 2022 Albumin [Mass/Vol] 4.3 g/dL Normal 3.5-5.2 [place] Comment on above: Performed By: #### C DP, CP #### [address] [place] [address] Bricklayer: Ellen Fregoso MD Albumin/Glob Ratio 1.3 Normal 1.0-2.5 [place] Comment on above: Performed By: #### C DP, CP #### [address] [place], [place] [id number] Bricklayer: Ellen Fregoso MD Alkaline Phos 76 U/L Normal 35-104 [place] Comment on above: Performed By: #### C DP, CP #### [facility] [address] [place], [place] [id number] Bricklayer: Ellen Fregoso MD ALT [Catalytic activity/Vol] 34 U/L High 5-33 [place] Comment on above: Performed By: #### C DP, CP #### [facility] [address] [place], [place] [id number] Bricklayer: Ellen Fregoso MD Anion gap [Moles/Vol] 11 mmol/L Normal 9-17 [place] Comment on above: Performed By: #### C DP, CP #### [facility] [address] [place], [place] [id number] Bricklayer: Ellen Fregoso MD AST [Catalytic activity/Vol] 24 U/L Normal <32 [place] Comment on above: Performed By: #### C DP, CP #### [facility] [address] [place], [place] [id number] Bricklayer: Ellen Fregoso MD Bilirubin [Mass/Vol] 0.7 mg/dL Normal 0.3-1.2 [place] Comment on above: Performed By: #### C DP, CP #### [facility] [address] [place], [place] [id number] Bricklayer: Ellen Fregoso MD BUN/CRE Ratio 20 Normal 9-20 [place] Comment on above: Performed By: #### C DP, CP #### [facility] [address] [place] [address] Bricklayer: Ellen Fregoso MD Calcium [Mass/Vol] 9.2 mg/dL Normal 8.6-10.4 [place] Comment on above: Performed By: #### C DP, CP #### [facility] [address] [place] [address] Bricklayer: Ellen Fregoso MD Chloride [Moles/Vol] 103 mmol/L Normal 98-107 [place] Comment on above: Performed By: #### C DP, CP #### [facility] [address] [place], [place] [id number] Bricklayer: Ellen Fregoso MD CO2 [Moles/Vol] 25 mmol/L Normal 20-31 [place] Comment on above: Performed By: #### C DP, CP #### [facility] [address] [place] [address] Bricklayer: Ellen Fregoso MD Creatinine [Mass/Vol] 0.7 mg/dL Normal 0.5-0.9 [place] Comment on above: Performed By: #### C DP, CP #### [facility] [address] [place] [address] Bricklayer: Ellen Fregoso MD GFR/1.73 sq M.predicted among non-blacks MDRD (S/P/Bld) [Vol rate/Area] mL/min/{1.73_m2} Normal >60 [place] Comment on above: Result Comment: These results [...] Performed By: #### C DP, CP #### [facility] [address] [place] [address] Bricklayer: Ellen Fregoso MD Glucose [Mass/Vol] 93 mg/dL Normal 70-99 [place] Comment on above: Performed By: #### C DP, CP #### [facility] [address] [place], [place] [id number] Bricklayer: Ellen Fregoso MD Potassium [Moles/Vol] 4.5 mmol/L Normal 3.7-5.3 [place] Comment on above: Performed By: #### C DP, CP #### [facility] [address] [place] [address] Dr[place], [place] [id number] Bricklayer: Ellen Fregoso MD Protein [Mass/Vol] 7.6 g/dL Normal 6.4-8.3 [place] Comment on above: Performed By: #### C DP, CP #### [address] [place], [place] 1154383 Bricklayer: Ellen Fregoso MD Sodium [Moles/Vol] 139 mmol/L Normal 135-144 [place] Comment on above: Performed By: #### C DP, CP #### [address] [place], [facility]83 Bricklayer: Ellen Fregoso MD Urea nitrogen [Mass/Vol] 14 mg/dL Normal 6-20 [place] Comment on above: Performed By: #### C DP, CP #### [address] [place], [facility]83 Bricklayer: Ellen Fregoso MD CBC with Diffon 06-12-2023 Abs. Basophil 0.10 k/uL Normal 0.00-0.20 [place] Comment on above: Performed By: #### C DP, CP #### [facility] [address] [place] [address] [place], [place] [id number] Bricklayer: Ellen Fregoso MD Abs.Imm.Granulocyt e 0.05 k/uL Normal 0.00-0.30 [place] Comment on above: Performed By: #### C DP, CP #### [facility] [address] [place], [place] 6963783 Bricklayer: Ellen Fregoso MD Abs.Neutrophil (Seg) 5.13 k/uL Normal 1.50-8.10 [place] Comment on above: Performed By: #### C DP, CP #### [address] [place], [place] [address] Bricklayer: Ellen Fregoso MD Basophils/100 WBC (Bld) 1 % Normal 0-2 [place] Comment on above: Performed By: #### C DP, CP #### [address] [place] [address] Bricklayer: Ellen Fregoso MD Eosinophils (Bld) [#/Vol] 0.42 10*3/uL Normal 0.00-0.44 [place] Comment on above: Performed By: #### C DP, CP #### [address] [place] [address] Bricklayer: Ellen Fregoso MD Eosinophils/100 WBC (Bld) 5 % High 1-4 [place] Comment on above: Performed By: #### C DP, CP #### [address] [place] [address] Bricklayer: Ellen Fregoso MD Erythrocyte distribution width (RBC) [Ratio] 11.8 % Normal 11.8-14.4 [place] Comment on above: Performed By: #### C DP, CP #### [address] [place], [place] [address] Bricklayer: Ellen Fregoso MD Hematocrit (Bld) [Volume fraction] 42.6 % Normal 36.3-47.1 [place] Comment on above: Performed By: #### C DP, CP #### [address] [place] [id number] Bricklayer: Ellen Fregoso MD Hemoglobin (Bld) [Mass/Vol] 13.8 g/dL Normal 11.9-15.1 [place] Comment on above: Performed By: #### C DP, CP #### [facility] [address] [place] [address] Bricklayer: Ellen Fregoso MD Immature granulocytes/100 WBC (Bld) 1 % High 0 [place] Comment on above: Performed By: #### C DP, CP #### [facility] [address] [place], [place] 1062683 Bricklayer: Ellen Fregoso MD Lymphocytes (Bld) [#/Vol] 2.82 10*3/uL Normal 1.10-3.70 [place] Comment on above: Performed By: #### C DP, CP #### [address] [place], [place] 8552583 Bricklayer: Ellen Fregoso MD Lymphocytes/100 WBC (Bld) 31 % Normal 24-43 [place] Comment on above: Performed By: #### C DP, CP #### [address] [place], [place] 5214983 Bricklayer: Ellen Fregoso MD MCH (RBC) [Entitic mass] 31.7 pg Normal 25.2-33.5 [place] Comment on above: Performed By: #### C DP, CP #### [address] [place] [address] Bricklayer: Ellen Fregoso MD MCHC (RBC) [Mass/Vol] 32.4 g/dL Normal 28.4-34.8 [place] Comment on above: Performed By: #### C DP, CP #### [address] [place] [address] Bricklayer: Ellen Fregoso MD MCV (RBC) [Entitic vol] 97.9 fL Normal 82.6-102.9 [place] Comment on above: Performed By: #### C DP, CP #### [address] [place], [place] [id number] Bricklayer: Ellen Fregoso MD Monocytes (Bld) [#/Vol] 0.71 10*3/uL Normal 0.10-1.20 [place] Comment on above: Performed By: #### C DP, CP #### [facility] [address] [place] [address] Dr[place], [facility]83 Bricklayer: Ellen Fregoso MD Monocytes/100 WBC (Bld) 8 % Normal 3-12 [place] Comment on above: Performed By: #### C DP, CP #### [address] [place], [facility]83 Bricklayer: Ellen Fregoso MD Neutrophil (Seg) 54 % Normal 36-65 [place] Comment on above: Performed By: #### C DP, CP #### [address] [place], [place] [address] Bricklayer: Ellen Fregoso MD NRBC Automated 0.0 per 100 WBC Normal 0.0 [place] Comment on above: Performed By: #### C DP, CP #### [address] [place], [facility]83 Bricklayer: Ellen Fregoso MD Platelet mean volume (Bld) [Entitic vol] 9.6 fL Normal 8.1-13.5 [place] Comment on above: Performed By: #### C DP, CP #### [address] [place], [facility]83 Bricklayer: Ellen Fregoso MD Platelets (Bld) [#/Vol] 309 10*3/uL Normal 138-453 [place] Comment on above: Performed By: #### C DP, CP #### [address] [place] [address] Bricklayer: Ellen Fregoso MD RBC (Bld) [#/Vol] 4.35 10*6/uL Normal 3.95-5.11 [place] Comment on above: Performed By: #### C DP, CP #### [facility] [address] [place], [place] [id number] Bricklayer: Ellen Fregoso MD WBC (Bld) [#/Vol] 9.2 10*3/uL Normal 3.5-11.3 [place] Comment on above: Performed By: #### C DP, CP #### [facility] [address] [place], [place] 5870983 Bricklayer: Ellen Fregoso MD Comp Metabolic Profon 2022 Albumin [Mass/Vol] 4.5 g/dL Normal 3.5-5.2 [place] Comment on above: Performed By: #### C DP, CP #### [address] [place], [place] 9708983 Bricklayer: Ellen Fregoso MD Albumin/Glob Ratio 1.5 Normal 1.0-2.5 [place] Comment on above: Performed By: #### C DP, CP #### [address] [place], [place] 0808883 Bricklayer: Ellen Fregoso MD Alkaline Phos 74 U/L Normal 35-104 [place] Comment on above: Performed By: #### C DP, CP #### [facility] [address] [place] [address] [place], [place] [id number] Bricklayer: Ellen Fregoso MD ALT [Catalytic activity/Vol] 34 U/L High 5-33 [place] Comment on above: Performed By: #### C DP, CP #### [facility] [address] [place] [address] Bricklayer: Ellen Fregoso MD Anion gap [Moles/Vol] 9 mmol/L Normal 9-17 [place] Comment on above: Performed By: #### C DP, CP #### [facility] [address] [place], [place] 6114683 Bricklayer: Ellen Fregoso MD AST [Catalytic activity/Vol] 22 U/L Normal <32 [place] Comment on above: Performed By: #### C DP, CP #### [facility] [address] [place], [place] 0647483 Bricklayer: Ellen Fregoso MD Bilirubin [Mass/Vol] 0.5 mg/dL Normal 0.3-1.2 [place] Comment on above: Performed By: #### C DP, CP #### [facility] [address] [place], [place] 2394783 Bricklayer: Ellen Fregoso MD BUN/CRE Ratio 20 Normal 9-20 [place] Comment on above: Performed By: #### C DP, CP #### [facility] [address] [place], [place] 4441083 Bricklayer: Ellen Fregoso MD Calcium [Mass/Vol] 9.1 mg/dL Normal 8.6-10.4 [place] Comment on above: Performed By: #### C DP, CP #### [address] [place], [place] 5662083 Bricklayer: Ellen Fregoso MD Chloride [Moles/Vol] 103 mmol/L Normal 98-107 [place] Comment on above: Performed By: #### C DP, CP #### [facility] [address] [place], [place] 6094083 Bricklayer: Ellen Fregoso MD CO2 [Moles/Vol] 26 mmol/L Normal 20-31 [place] Comment on above: Performed By: #### C DP, CP #### [facility] [address] [place], [place] 7807183 Bricklayer: Ellen Fregoso MD Creatinine [Mass/Vol] 0.7 mg/dL Normal 0.5-0.9 [place] Comment on above: Performed By: #### C DP, CP #### [facility] [address] [place] [address] [place] [address] Bricklayer: Ellen Fregoso MD GFR/1.73 sq M.predicted among non-blacks MDRD (S/P/Bld) [Vol rate/Area] mL/min/{1.73_m2} Normal >60 [place] Comment on above: Result Comment: These results [...] Performed By: #### C DP, CP #### [facility] [address] [place] [address] [place] [address] Bricklayer: Ellen Fregoso MD Glucose [Mass/Vol] 81 mg/dL Normal 70-99 [place] Comment on above: Performed By: #### C DP, CP #### [address] [place] [address] Bricklayer: Ellen Fregoso MD Potassium [Moles/Vol] 4.5 mmol/L Normal 3.7-5.3 [place] Comment on above: Performed By: #### C DP, CP #### [facility] [address] [place] [address] [place] [address] Bricklayer: Ellen Fregoso MD Protein [Mass/Vol] 7.5 g/dL Normal 6.4-8.3 [place] Comment on above: Performed By: #### C DP, CP #### [address] [place] [address] Bricklayer: Ellen Fregoso MD Sodium [Moles/Vol] 138 mmol/L Normal 135-144 [place] Comment on above: Performed By: #### C DP, CP #### [facility] [address] [place], [place] 8409283 Bricklayer: Ellen Fregoso MD Urea nitrogen [Mass/Vol] 14 mg/dL Normal 6-20 [place] Comment on above: Performed By: #### C DP, CP #### [facility] [address] [place], [place] 3416183 Bricklayer: Ellen Fregoso MD UA w/Reflex Cultureon 2022 Bilirubin, SemiQt,Ur Negative Normal NEG [place] Comment on above: Performed By: #### U MICAO, UAX #### [facility] [address] [place] [address] Bricklayer: Ellen Fregoso MD Blood, Urine Negative Normal NEG [place] Comment on above: Performed By: #### U MICAO, UAX #### [facility] [address] [place] [address] Bricklayer: Ellen Fregoso MD Clarity (U) Clear Normal CLEAR [place] Comment on above: Performed By: #### U MICAO, UAX #### [facility] [address] [place] [address] [place] [address] Bricklayer: Ellen Fregoso MD Color (U) Yellow Normal YEL [place] Comment on above: Performed By: #### U MICAO, UAX #### [facility] [address] [place] [address] Bricklayer: Ellen Fregoso MD Glucose Ql (U) Negative Normal NEG [place] Comment on above: Performed By: #### U MICAO, UAX #### [facility] [address] [place], [place] 3224683 Bricklayer: Ellen Fregoso MD Ketones Ql (U) Negative Normal NEG [place] Comment on above: Performed By: #### U MICAO, UAX #### [facility] [address] [place], [place] 0330683 Bricklayer: Ellen Fregoso MD Leukocyte esterase Test strip Ql (U) Negative Normal NEG [place] Comment on above: Performed By: #### U MICAO, UAX #### [facility] [address] [place], [place] 4346783 Bricklayer: Ellen Fregoso MD Nitrite,Ur Negative Normal NEG [place] Comment on above: Performed By: #### U MICAO, UAX #### [facility] [address] [place], [place] 2379583 Bricklayer: Ellen Fregoso MD PH,Ur 6.0 Normal 5.0-9.0 [place] Comment on above: Performed By: #### U MICAO, UAX #### [facility] [address] [place], [place] 5466083 Bricklayer: Ellen Fregoso MD Protein Ql (U) Negative Normal NEG [place] Comment on above: Performed By: #### U MICAO, UAX #### [facility] [address] [place] [address] [place], [place] 1694383 Bricklayer: Ellen Fregoso MD Spec. [place],Ur 1.020 Normal 1.010-1.020 [place] Comment on above: Performed By: #### U MICAO, UAX #### [facility] [address] [place], [place] 5179483 Bricklayer: Ellen Fregoso MD Urobilinogen,Ur Normal Normal 0.0-1.0 [place] Comment on above: Performed By: #### U MICAO, UAX #### [facility] [address] [place], [place] 8590383 Bricklayer: Ellen Fregoso MD Urinalysis,Microon 3 Bacteria 1+ Abnormal NONE [place] Comment on above: Performed By: #### U MICAO, UAX #### [facility] [address] [place] [address] [place], [place] 3653683 Bricklayer: Ellen Fregoso MD Epithelial cells LM Ql (Urine sed) 2 TO 5 Normal 0-25 [place] Comment on above: Performed By: #### U MICAO, UAX #### [facility] [address] [place], [place] 1271983 Bricklayer: Ellen Fregoso MD Mucus Strands TRACE Abnormal NONE [place] Comment on above: Performed By: #### U MICAO, UAX #### [address] [place] 3535383 Bricklayer: Ellen Fregoso MD Urine RBC's None Normal 0-2 [place] Comment on above: Performed By: #### U MICAO, UAX #### [address] [place] [address] Bricklayer: Ellen Fregoso MD Urine WBC's 0 TO 2 Normal 0-5 [place] Comment on above: Performed By: #### U MICAO, UAX #### [address] [place], [place] 27[address]83 Bricklayer: Ellen Fregoso MD Surgical Pathology Reporton 05-31-2023 Surgical Pathology Report (NOTE) Path Number: [id number] -- Diagnosis -- Ovary, right (7 g), [...] are no excrescences in the cystic areas. Schedule Clerk sections are submitted in 3cs. cd LRD/kb2:05/31/2023 Microscopic Description 3 RAYSHAWN reviewed. Microscopic evaluation performed. Processing Lab: [facility] [address] [place] [address] Interpretation Performed at [facility] [address] [place] [address] SURGICAL PATHOLOGY CONSULTATION Patient Name: ELMER DURAN [facility] Rec: [id number] [facility] ANATOMIC PATHOLOGY [address] [place], [place] [address] Normal [place] CBC AUTO DIFFon 06-09-2022 BASO # 0.1 103/ul Normal 0.0-0.1 [facility] Comment on above: Performed By: #### C BC #### [facility] [address] [place] [address] [address] Valeria Stacy Basophils/100 WBC (Bld) 0.8 % Normal 0.2-2.0 [facility] Comment on above: Performed By: #### C BC #### [facility] [address] [place] [address] Dr. Valeria Stacy EO # 0.1 103/ul Normal 0.0-0.7 [facility] Comment on above: Performed By: #### C BC #### [facility] [address] [place] [address] [address] Valeria Stacy Eosinophils/100 WBC (Bld) 0.9 % Normal 0.9-7.0 [facility] Comment on above: Performed By: #### C BC #### [facility] [address] [place] [address] Dr. Valeria Stacy Erythrocyte distribution width (RBC) [Ratio] 12.6 % Normal 11.0-15.0 [facility] Comment on above: Performed By: #### C BC #### [facility] [address] [place] [address] Dr. Valeria Stacy Hematocrit (Bld) [Volume fraction] 42.4 % Normal 36.0-48.0 [facility] Comment on above: Performed By: #### C BC #### [facility] [address] [place] [address] Dr. Valeria Stacy Hemoglobin (Bld) [Mass/Vol] 13.8 g/dL Normal 12.0-16.0 [facility] Comment on above: Performed By: #### C BC #### [facility] [address] [place] [address] Dr. Valeria Stacy IG # 0.10 10e3/ul Critically high 0.00-0.03 [facility] Comment on above: Performed By: #### C BC #### [facility] [address] [place] [address] Dr. Valeria Stacy IG % 0.9 % Critically high 0.0-0.5 [facility] Comment on above: Performed By: #### C BC #### [facility] [address] [place] [address] Dr. Valeria Stacy LYMPH # 2.3 103/ul Normal 1.2-3.8 [facility] Comment on above: Performed By: #### C BC #### [facility] [address] [place] [address] Dr. Valeria Stacy Lymphocytes/100 WBC (Bld) 20.2 % Critically low 20.5-60.0 [facility] Comment on above: Performed By: #### C BC #### [facility] [address] [place] [address] Dr. Valeria Stacy MANUAL DIFF REQ NO Normal [facility] Comment on above: Performed By: #### C BC #### [facility] [address] [place] [address] Dr. Valeria Stacy MCH (RBC) [Entitic mass] 31.2 pg Normal 26.7-34.0 [facility] Comment on above: Performed By: #### C BC #### [facility] [address] [place] [address] [address] Valeria Stacy MCHC (RBC) [Mass/Vol] 32.5 g/dL Normal 29.9-35.2 [facility] Comment on above: Performed By: #### C BC #### [facility] [address] [place] [id number] Valeria Stacy MCV (RBC) [Entitic vol] 95.7 fL Normal 81.0-99.0 [facility] Comment on above: Performed By: #### C BC #### [facility] [address] [place] [address] [address] Valeria Stacy MONO # 0.7 103/ul Normal 0.3-0.8 [facility] Comment on above: Performed By: #### C BC #### [facility] [address] [place] [address] Dr. Valeria Stacy Monocytes/100 WBC (Bld) 6.2 % Normal 1.7-12.0 [facility] Comment on above: Performed By: #### C BC #### [facility] [address] [place] [address] Dr. Valeria Stacy NEUT # 8.2 103/ul Critically high 1.4-6.5 [facility] Comment on above: Performed By: #### C BC #### [facility] [address] [place], [place] [address] Dr. Valeria Stacy Neutrophils/100 WBC (Bld) 71.0 % Normal 43.0-75.0 [facility] Comment on above: Performed By: #### C BC #### [facility] [address] [place], [place] [address] Dr. Valeria Stacy Platelet mean volume (Bld) [Entitic vol] 8.5 fL Critically low 9.5-13.5 [facility] Comment on above: Performed By: #### C BC #### [facility] [address] [place] [address] Dr. Valeria Stacy PLT 344 103/ul Normal 150-450 [facility] Comment on above: Performed By: #### C BC #### [facility] [address] [place] [address] [address] Valeria Stacy RBC 4.43 106/ul Normal 4.20-5.40 [facility] Comment on above: Performed By: #### C BC #### [facility] [address] [place] [address] [address] Valeria Stacy WBC 11.5 103/ul Critically high 4.0-11.0 [facility] Comment on above: Performed By: #### C BC #### [facility] [address] [place] [address] [address] Valeria Stacy FREE T3on 06-09-2022 FREE T3 2.26 pg/mlL Normal 2.18-3.98 [facility] Comment on above: Performed By: #### F T3, CMP, TSH, T4 ####[facility] [address] [place] [address]DrSvitlana Stacy PROF 14(COMP METB)on 022 Albumin [Mass/Vol] 3.5 g/dL Normal 3.4-5.0 [facility] Comment on above: Performed By: #### F T3, CMP, TSH, T4 ####[facility] [address] [place] [id number] Stacy Albumin/Globulin [Mass ratio] 0.9 {ratio} Normal [facility] Comment on above: Performed By: #### F T3, CMP, TSH, T4 ####[facility] [address] [place] [id number] Stacy ALP [Catalytic activity/Vol] 83 U/L Normal 46-116 [facility] Comment on above: Performed By: #### F T3, CMP, TSH, T4 ####[facility] [address] [place] [id number] Stacy ALT [Catalytic activity/Vol] 59 U/L Normal 14-59 [facility] Comment on above: Performed By: #### F T3, CMP, TSH, T4 ####[facility] [address] [place] [address]DrSvitlana Stacy Anion gap [Moles/Vol] 11.7 mmol/L Normal [facility] Comment on above: Performed By: #### F T3, CMP, TSH, T4 ####[facility] [address] [place] [address]Dr. Valeria Stacy AST [Catalytic activity/Vol] 22 U/L Normal 15-37 [facility] Comment on above: Performed By: #### F T3, CMP, TSH, T4 ####[facility] [address] [place] [address]Dr. Valeria Stacy Bilirubin [Mass/Vol] 0.5 mg/dL Normal 0.2-1.0 [facility] Comment on above: Performed By: #### F T3, CMP, TSH, T4 ####[facility] [address] [place] [address]Dr. Valeria Stacy Calcium [Mass/Vol] 9.1 mg/dL Normal 8.5-10.1 [facility] Comment on above: Performed By: #### F T3, CMP, TSH, T4 ####[facility] [address] [place], [place] [address]Dr. Valeria Stacy Chloride [Moles/Vol] 104 mmol/L Normal 98-107 [facility] Comment on above: Performed By: #### F T3, CMP, TSH, T4 ####[facility] [address] [place], [place] [address]Dr. Valeria Stacy CO2 [Moles/Vol] 26.4 mmol/L Normal 21.0-32.0 [facility] Comment on above: Performed By: #### F T3, CMP, TSH, T4 ####[facility] [address] [place] [address]Dr. Valeria Stacy Creatinine [Mass/Vol] 0.85 mg/dL Normal 0.55-1.02 [facility] Comment on above: Performed By: #### F T3, CMP, TSH, T4 ####[facility] [address] [place] [address]Dr. Valeria Stacy EGFR-AF NAMIBIAN >60 Normal >=60 [facility] Comment on above: Performed By: #### F T3, CMP, TSH, T4 ####[facility] [address] [place] [id number]. Valeria Stacy EGFR-NON AF NAMIBIAN >60 Normal >=60 [facility] Comment on above: Performed By: #### F T3, CMP, TSH, T4 ####[facility] [address] [place] [address]Dr. Valeria Stacy Globulin (S) [Mass/Vol] 4.0 g/dL Normal [facility] Comment on above: Performed By: #### F T3, CMP, TSH, T4 ####[facility] [address] [place] [address]Dr. Valeria Stacy Glucose [Mass/Vol] 85 mg/dL Normal 74-106 [facility] Comment on above: Performed By: #### F T3, CMP, TSH, T4 ####[facility] [address] [place] [address]Dr. Magdalenaleonard Stacy Potassium [Moles/Vol] 4.1 mmol/L Normal 3.5-5.1 [facility] Comment on above: Performed By: #### F T3, CMP, TSH, T4 ####[facility] [address] [place] [address]Dr. Valeria Stacy Protein [Mass/Vol] 7.5 g/dL Normal 6.4-8.2 [facility] Comment on above: Performed By: #### F T3, CMP, TSH, T4 ####[facility] [address] [place] [address]Dr. Valeria Stacy Sodium [Moles/Vol] 138 mmol/L Normal 136-145 [facility] Comment on above: Performed By: #### F T3, CMP, TSH, T4 ####[facility] [address] [place] [address]Dr. Valeria Regis Urea nitrogen [Mass/Vol] 12.0 mg/dL Normal 7.0-18.0 [facility] Comment on above: Performed By: #### F T3, CMP, TSH, T4 ####[facility] [address] [place] [address]Dr. Valeria Stacy Urea nitrogen/Creatinin e [Mass ratio] 14.1 mg/mg Normal [facility] Comment on above: Performed By: #### F T3, CMP, TSH, T4 ####[facility] [address] [place] [address]Dr. Valeria Stacy T4on 06-09-2022 T4 [Mass/Vol] 7.90 ug/dL Normal 4.80-13.90 [facility] Comment on above: Performed By: #### F T3, CMP, TSH, T4 ####[facility] [address] [place] [id number]. Valeria Stacy TSHon 06-09-2022 TSH 0.604 uIU/mL Normal 0.358-3.740 [facility] Comment on above: Performed By: #### F T3, CMP, TSH, T4 ####[facility] [address] [place] [address]Dr. Valeria Stacy MRI CSPINE WO CONon 04-17-20 [...] ELLEN MENDEZ Date: 2022-04-17 19:34 Normal [facility] XR CSPINE MIN 4 VIEWSon 03-22 XR [...] PHILIPP AYALA Date: 2022-04-05 07:06 Normal [facility] INSULINon 02-19-2022 Insulin 30.3 uIU/mL Critically high 2.6-24.9 [facility] Comment on above: Performed By: #### I NSULIN ####[facility] [address] [place] [address]Dr. Valeria Stacy CBC AUTO DIFFon 02-17-2022 BASO # 0.1 103/ul Normal 0.0-0.1 [facility] Comment on above: Performed By: #### C BC ####[facility] [address] [place] [address]Dr. Valeria Stacy Basophils/100 WBC (Bld) 1.2 % Normal 0.2-2.0 [facility] Comment on above: Performed By: #### C BC ####[facility] [address] [place], [place] [address]Dr. Valeria Stacy EO # 0.5 103/ul Normal 0.0-0.7 [facility] Comment on above: Performed By: #### C BC ####[facility] [address] [place] [address]Dr. Valeria Stacy Eosinophils/100 WBC (Bld) 6.6 % Normal 0.9-7.0 [facility] Comment on above: Performed By: #### C BC ####[facility] [address] [place], [place] [address]Dr. Valeria Stacy Erythrocyte distribution width (RBC) [Ratio] 12.6 % Normal 11.0-15.0 [facility] Comment on above: Performed By: #### C BC ####[facility] [address] [place] [address]Dr. Valeria Stacy Hematocrit (Bld) [Volume fraction] 41.8 % Normal 36.0-48.0 [facility] Comment on above: Performed By: #### C BC ####[facility] [address] [place] [address]Dr. Valeria Stacy Hemoglobin (Bld) [Mass/Vol] 13.7 g/dL Normal 12.0-16.0 [facility] Comment on above: Performed By: #### C BC ####[facility] [address] [place], [place] [address]Dr. Valeria Stacy IG # 0.03 10e3/ul Normal 0.00-0.03 [facility] Comment on above: Performed By: #### C BC ####[facility] [address] [place], [place] [address]Dr. Magdalenaleonard Stacy IG % 0.4 % Normal 0.0-0.5 [facility] Comment on above: Performed By: #### C BC ####[facility] [address] [place], [place] [address]DrSvitlana Valeria Regis LYMPH # 3.1 103/ul Normal 1.2-3.8 [facility] Comment on above: Performed By: #### C BC ####[facility] [address] [place], [place] [address]DrSvitlana Magdalenaleonard Stacy Lymphocytes/100 WBC (Bld) 38.7 % Normal 20.5-60.0 [facility] Comment on above: Performed By: #### C BC ####[facility] [address] [place], [place] [address]DrSvitlana Magdalenaleonard Stacy MANUAL DIFF REQ NO Normal [facility] Comment on above: Performed By: #### C BC ####[facility] [address] [place], [place] [address]DrSvitlana Stacy MCH (RBC) [Entitic mass] 31.2 pg Normal 26.7-34.0 [facility] Comment on above: Performed By: #### C BC ####[facility] [address] [place] [id number]. Magdalenaleonard Regis MCHC (RBC) [Mass/Vol] 32.8 g/dL Normal 29.9-35.2 [facility] Comment on above: Performed By: #### C BC ####[facility] [address] [place] [id number] Stacy MCV (RBC) [Entitic vol] 95.2 fL Normal 81.0-99.0 [facility] Comment on above: Performed By: #### C BC ####[facility] [address] [place], [place] [address]DrSvitlana Stacy MONO # 0.7 103/ul Normal 0.3-0.8 [facility] Comment on above: Performed By: #### C BC ####[facility] [address] [place], [place] [address]DrSvitlana Stacy Monocytes/100 WBC (Bld) 8.6 % Normal 1.7-12.0 [facility] Comment on above: Performed By: #### C BC ####[facility] [address] [place], [place] [address]DrSvitlana Stacy NEUT # 3.6 103/ul Normal 1.4-6.5 [facility] Comment on above: Performed By: #### C BC ####[facility] [address] [place], [place] [address]DrSvitlana Stacy Neutrophils/100 WBC (Bld) 44.5 % Normal 43.0-75.0 [facility] Comment on above: Performed By: #### C BC ####[facility] [address] [place], [place] [address]DrSvitlana Stacy Platelet mean volume (Bld) [Entitic vol] 8.6 fL Critically low 9.5-13.5 [facility] Comment on above: Performed By: #### C BC ####[facility] [address] [place] [id number] Stacy PLT 325 103/ul Normal 150-450 [facility] Comment on above: Performed By: #### C BC ####[facility] [address] [place] [address]DrSvitlana Stacy RBC 4.39 106/ul Normal 4.20-5.40 [facility] Comment on above: Performed By: #### C BC ####[facility] [address] [place] [address]DrSvitlana Stacy WBC 8.0 103/ul Normal 4.0-11.0 [facility] Comment on above: Performed By: #### C BC ####[facility] [address] [place] [address]Dr. Valeria Stacy FREE THYROXINE INDEX T7on FTI 2.26 Normal 1.30-4.50 [facility] Comment on above: Performed By: #### L IPID, T7, CMP, TSH #### [facility] [address] [place] [address] [address] Valeria Stacy T3U 31.0 % Normal 30.0-39.0 [facility] Comment on above: Performed By: #### L IPID, T7, CMP, TSH #### [facility] [address] [address] [address] Valeria Stacy T4 [Mass/Vol] 7.30 ug/dL Normal 4.80-13.90 [facility] Comment on above: Performed By: #### L IPID, T7, CMP, TSH #### [facility] [address] [place] [address] Dr. Valeria Stacy GLYCOHEMOGLOBIN A1Con 2021 ADA RECOMMENDATION SEE BELOW Normal [facility] Comment on above: Result Comment: ADA RECOMMENDED LIMIT 4.0 - 6.0 ADA THERAPEUTIC TARGET < 7.0 ACTION SUGGESTED > 7.0 Performed By: #### A 1C #### [facility] [address] [place] [address] Dr. Valeria Stacy Glucose [Mass/Vol] 111 mg/dL Normal [facility] Comment on above: Performed By: #### A 1C #### [facility] [address] [place] [address] Dr. Valeria Stacy HbA1c (Bld) [Mass fraction] 5.5 % Normal 4.5-6.2 [facility] Comment on above: Performed By: #### A 1C #### [facility] [address] [place] [address] Dr. Valeria Stacy IRONon 02-17-2022 Iron [Mass/Vol] 114.0 ug/dL Normal 50.0-170.0 [facility] Comment on above: Performed By: #### I ROWENA #### [facility] [address] [place] [address] Dr. Valeria Stacy LIPID PROFILEon 02-17-2022 CHOL-HDL RATIO NORM SEE BELOW Normal [facility] Comment on above: Result Comment: 3.3 - 4.4 LOW RISK 4.4 - 7.1 AVERAGE RISK 7.1 - 11.0 MODERATE RISK >11.0 HIGH RISK Performed By: #### L IPID, T7, CMP, TSH #### [facility] [address] [place] [address] Dr. Valeria Stacy Cholesterol [Mass/Vol] 175 mg/dL Normal <=200 [facility] Comment on above: Performed By: #### L IPID, T7, CMP, TSH #### [facility] [address] [place] [address] Dr. Valeria Stacy Cholesterol in HDL [Mass/Vol] 45 mg/dL Normal 40-60 [facility] Comment on above: Performed By: #### L IPID, T7, CMP, TSH #### [facility] [address] [place] [address] Dr. Valeria Stacy Cholesterol in LDL [Mass/Vol] 89.0 mg/dL Normal [facility] Comment on above: Performed By: #### L IPID, T7, CMP, TSH #### [facility] [address] [place] [address] Dr. Valeria Stacy Cholesterol.total/ Cholesterol in HDL [Mass ratio] 3.9 {ratio} Normal [facility] Comment on above: Performed By: #### L IPID, T7, CMP, TSH #### [facility] [address] [place] [address] Dr. Vaelria Stacy HDL NORMAL > or = 60 mg/dl - LO W CARDIOVASCULAR RISK <40 mg/dl - HIGH CARDIOVASCULAR RISK Normal [facility] Comment on above: Performed By: #### L IPID, T7, CMP, TSH #### [facility] [address] [address] [address] Valeria Stacy LDL CALC NORMAL SEE BELOW Normal [facility] Comment on above: Result Comment: <100 mg/dl OPTIMAL 100 - 129 mg/dl NEAR OR ABOVE OPTIMAL 130 - 159 mg/dl BORDERLINE HIGH 160 - 189 mg/dl HIGH >190 mg/dl VERY HIGH Performed By: #### L IPID, T7, CMP, TSH #### [facility] [address] [address] [address] Valeria Stacy Triglyceride [Mass/Vol] 205 mg/dL Critically high <=150 [facility] Comment on above: Performed By: #### L IPID, T7, CMP, TSH #### [facility] [address] [address] [address] Valeria Stacy VLDL CALC 41.0 mg/dL Normal [facility] Comment on above: Performed By: #### L IPID, T7, CMP, TSH #### [facility] [address] [address] [address] Valeria Stacy PROF 14(COMP METB)on 022 Albumin [Mass/Vol] 3.6 g/dL Normal 3.4-5.0 [facility] Comment on above: Performed By: #### L IPID, T7, CMP, TSH #### [facility] [address] [address] [address] Valeria Stacy Albumin/Globulin [Mass ratio] 0.8 {ratio} Normal [facility] Comment on above: Performed By: #### L IPID, T7, CMP, TSH #### [facility] [address] [address] [address] Valeria Stacy ALP [Catalytic activity/Vol] 73 U/L Normal 46-116 [facility] Comment on above: Performed By: #### L IPID, T7, CMP, TSH #### [facility] [address] [address] [address] Valeria Stacy ALT [Catalytic activity/Vol] 115 U/L Critically high 14-59 [facility] Comment on above: Performed By: #### L IPID, T7, CMP, TSH #### [facility] [address] [place] [address] Dr. Valeria Stacy Anion gap [Moles/Vol] 12.1 mmol/L Normal [facility] Comment on above: Performed By: #### L IPID, T7, CMP, TSH #### [facility] [address] [address] [address] Valeria Stacy AST [Catalytic activity/Vol] 36 U/L Normal 15-37 [facility] Comment on above: Performed By: #### L IPID, T7, CMP, TSH #### [facility] [address] [place] [address] Dr. Valeria Stacy Bilirubin [Mass/Vol] 0.6 mg/dL Normal 0.2-1.0 [facility] Comment on above: Performed By: #### L IPID, T7, CMP, TSH #### [facility] [address] [place] [address] Dr. Valeria Stacy Calcium [Mass/Vol] 8.6 mg/dL Normal 8.5-10.1 [facility] Comment on above: Performed By: #### L IPID, T7, CMP, TSH #### [facility] [address] [place] [address] Dr. Valeria Stacy Chloride [Moles/Vol] 107 mmol/L Normal 98-107 [facility] Comment on above: Performed By: #### L IPID, T7, CMP, TSH #### [facility] [address] [address] [address] Valeria Stacy CO2 [Moles/Vol] 24.9 mmol/L Normal 21.0-32.0 [facility] Comment on above: Performed By: #### L IPID, T7, CMP, TSH #### [facility] [address] [address] [address] Valeria Stacy Creatinine [Mass/Vol] 0.93 mg/dL Normal 0.55-1.02 [facility] Comment on above: Performed By: #### L IPID, T7, CMP, TSH #### [facility] [address] [place] [address] Dr. Valeria Stacy EGFR-AF NAMIBIAN >60 Normal >=60 [facility] Comment on above: Performed By: #### L IPID, T7, CMP, TSH #### [facility] [address] [place] [address] Dr. Valeria Stacy EGFR-NON AF NAMIBIAN >60 Normal >=60 [facility] Comment on above: Performed By: #### L IPID, T7, CMP, TSH #### [facility] [address] [place] [address] Dr. Valeria Stacy Globulin (S) [Mass/Vol] 4.4 g/dL Normal [facility] Comment on above: Performed By: #### L IPID, T7, CMP, TSH #### [facility] [address] [place] [address] Dr. Valeria Stacy Glucose [Mass/Vol] 89 mg/dL Normal 74-106 [facility] Comment on above: Performed By: #### L IPID, T7, CMP, TSH #### [facility] [address] [place] [address] Dr. Valeria Stacy Potassium [Moles/Vol] 4.0 mmol/L Normal 3.5-5.1 [facility] Comment on above: Performed By: #### L IPID, T7, CMP, TSH #### [facility] [address] [place] [address] Dr. Valeria Stacy Protein [Mass/Vol] 8.0 g/dL Normal 6.4-8.2 [facility] Comment on above: Performed By: #### L IPID, T7, CMP, TSH #### [facility] [address] [place] [address] Dr. Valeria Stacy Sodium [Moles/Vol] 140 mmol/L Normal 136-145 [facility] Comment on above: Performed By: #### L IPID, T7, CMP, TSH #### [facility] [address] [place] [address] Dr. Valeria Stacy Urea nitrogen [Mass/Vol] 8.0 mg/dL Normal 7.0-18.0 [facility] Comment on above: Performed By: #### L IPID, T7, CMP, TSH #### [facility] [address] [address] [address] Valeria Stacy Urea nitrogen/Creatinin e [Mass ratio] 8.6 mg/mg Normal [facility] Comment on above: Performed By: #### L IPID, T7, CMP, TSH #### [facility] [address] [address] [address] Valeria Stacy TSHon 02-17-2022 TSH 0.897 uIU/mL Normal 0.358-3.740 [facility] Comment on above: Performed By: #### L IPID, T7, CMP, TSH #### [facility] [address] [place] [address] Dr. Valeria Stacy US KAYLA DOP LEG [...] by: ELLEN MENDEZ Date: 2021-09-16 11:37 Normal [facility] Lab - Toxicology Resultson 0 08-04-2018 Lab - Toxicology Results [id number] Normal [facility] Vital Signs Date Time Vital Sign Value Performing Clinician Danya meade 05-04-2024 11:20-0400 Diastolic blood pressure 95 mm[Hg] Van SEAMAN [facility] 05-04-2024 11:20-0400 Heart rate 69 /min Van NILL [facility] 05-04-2024 11:20-0400 Respiratory rate 12 /min Van NILL [facility] 05-04-2024 11:20-0400 SaO2% (BldA) [Mass fraction] 100 % Van NILL [facility] 05-04-2024 11:20-0400 Systolic blood pressure 137 mm[Hg] Van NILL [facility] 05-04-2024 11:05-0400 Diastolic blood pressure 90 mm[Hg] Van NILL [facility] 05-04-2024 11:05-0400 Heart rate 73 /min Van NILL [facility] 05-04-2024 11:05-0400 Respiratory rate 14 /min Van NILL [facility] 05-04-2024 11:05-0400 SaO2% (BldA) [Mass fraction] 100 % Van NILL [facility] 05-04-2024 11:05-0400 Systolic blood pressure 141 mm[Hg] Van NILL [facility] 05-04-2024 11:00-0400 Diastolic blood pressure 65 mm[Hg] Van NILL [facility] 05-04-2024 11:00-0400 Heart rate 87 /min Van NILL [facility] 05-04-2024 11:00-0400 Respiratory rate 21 /min Van NILL [facility] 05-04-2024 11:00-0400 Systolic blood pressure 117 mm[Hg] Van NILL [facility] 05-04-2024 10:53-0400 Body temperature 98.06 [degF] Avn NILL [facility] 05-04-2024 10:50-0400 Respiratory rate 18 /min Van NILL [facility] 05-04-2024 10:45-0400 Respiratory rate 18 /min Van NILL [facility] 05-04-2024 10:40-0400 Respiratory rate 18 /min Van NILL [facility] 04-23-2024 13:33-0400 Blood Pressure Location Van NILL [facility] 04-23-2024 13:33-0400 Diastolic blood pressure 88 mm[Hg] Van NILL [facility] 04-23-2024 13:33-0400 Heart rate 59 /min Van NILL [facility] 04-23-2024 13:33-0400 Respiratory rate 16 /min Van NILL [facility] 04-23-2024 13:33-0400 Systolic blood pressure 135 mm[Hg] Van NILL [facility] Encounters Encounter Date Encounter Type Care Provider Facility Start: 05-26-2024 End: 05-26-2024 ambulatory Van SEAMAN Facility: [facility] Start: 05-26-2024 End: 05-26-2024 [facility] Start: 05-04-2024 End: 05-04-2024 ambulatory Van Jean GINAL Facility:[facility] Start: 05-04-2024 End: 05-04-2024 Patient encounter procedure Van Jean GINAL [facility] Start: 04-23-2024 End: 04-23-2024 ambulatory Dariana Page Facility:[facility] [place] Start: 04-23-2024 End: 04-23-2024 Patient encounter procedure Van FUENTESL [facility] [place] Start: 04-13-2024 ambulatory Van GINAL Facility:[facility] [place] Start: 04-10-2024 ambulatory Van GINAL Facility:[facility] [place] Start: 06-28-2023 End: 07-01-2023 ambulatory [facility] Start: 06-18-2023 End: 06-19-2023 ambulatory [facility] Start: 06-12-2023 End: 06-13-2023 ambulatory [facility] Start: 05-31-2023 End: 05-31-2023 ambulatory DARIANA M [facility] Start: 06-09-2022 End: 06-10-[address] DARIANA PAGE Facility:[facility] Start: 04-17-2022 End: 04-18-[address] DARIANA PAGE Facility:[facility] Start: 04-16-2022 End: 05-29-[address] DARIANA PAGE Facility:[facility] Start: 04-04-2022 End: 04-05-[address] DARIANA PAGE Facility:[facility] Start: 02-22-2022 Encounter for genera l adult medical examination without abnormal findings DR DARIANA PAGE [facility] Start: 02-17-2022 End: 02-18-[address] DARIANA PAGE Facility:[facility] Start: 02-17-2022 End: 02-18-2022 Encounter for general adult medical examination without abnormal findings DR DARIANA PAGE Facility:[facility] Start: 09-16-2021 End: 09-16-2021 ambulatory ASHOK CERVANTES Facility:[facility] Start: 08-02-[address] DARIANA PAGE Facility :[facility] Procedures Date Procedure Procedure Detail Performing Clinician Start: 05-04-2024 Colonoscopy Van FUENTESL Comment on above: normal Start: 05-04-2024 Esophagogastroduodenoscopy Van FUENTESL Comment on above: HH,Gastritis, biopsies done Arthroscopy of knee Van FUENTESL Dilation and curettage Ran FUENTESL Extraction of wisdom tooth Andrew gorman NILL Laparoscopic salpingo-oophorectomy Van RaftOutL Reconstruction of nose Ran FUENTESL Vaginal hysterectomy Van RaftOutL Payers Date Payer Category Payer Unknown [id number] 1985 Unknown [id number] 2.16.84 [id number] 1984 Unknown [id number] 2.16.84 [id number] 1984 Unknown [id number] 2.16.84 [id number] 1984 Unknown [id number] 2.16.84 [id number] 1984 Unknown [id number] 2.16.84 0.1.607969.3.579.2.593 1984 Unknown [id number] 2.16.84 [id number] 1984 Unknown [id number] 2.16.84 [id number] 1984 Unknown [id number] 2.16.8 [id number] 1984 Unknown [id number] 2.16.8 [id number] 1984 Unknown [id number] 2.16.8 [id number] 1984 Unknown [id number] 2.16.8 [id number] 1984 Unknown [id number] 2.16.8 40.1.034318.3.579.2.727 1984 Unknown [id number] 2.16.8 [id number] 1984 Unknown [id number] 2.16.8 [id number] 1959 Self-pay [id number] 1960 Unknown [id number] Social History Date Type Detail Facility Start: 04-23-2024 End: 05-26-2024 Tobacco smoking status Light tobacco smoker (finding) [facility] Tobacco smoking status Never [facility] Sex Assigned At Female [facility] Functional Status Date Assessment Result Facility 05-26-2024 Functional Status N/A [facility] 05-04-2024 Functional Status N/A [facility] 04-23-2024 Functional Status N/A [facility] Clinical Notes 04-23-2024 to 05-06-2024 Note Date [...] occult stool blood test / SNOMED CT 1338787151 / Confirmed Positive fecal occult blood test / SNOMED CT 0862568839 / Confirmed Obesity due to excess calories / SNOMED CT 1168208960 / Confirmed Nausea and vomiting / SNOMED CT 72179116 / Confirmed Migraine / SNOMED CT 73880296 / Confirmed Epigastric pain / SNOMED CT 054609744 / Confirmed Early satiety / SNOMED CT 9668025075 / Confirmed Alternating constipation and diarrhea / SNOMED CT 876580645 / Confirmed Cervical radiculopathy / SNOMED CT 710623908 / Confirmed BMI 32.0-32.9,adult / SNOMED CT 720926911 / Confirmed Histories Procedure history: Arthroscopy of knee (431124448). Nose reconstruction (1673081033). Laparoscopic salpingo-oophorectomy (6720892089). VH - Vaginal hysterectomy (363722582). Dilation and curettage (54123856). Extraction of wisdom tooth (292446130). Dilation and curettage (34794955). Social History Social & Psychosocial Habits Alcohol [...] adequate air exchange. Cardiovascular: Regular rhythm. Plan [place] [employer] (ASA) physical status classification: Class II. Anesthetic Preoperative Plan: Anesthesia General. [facility] Comment on above: Result Comment: Elec tronically Signed By: Cipriano Hernandez Jr, DO\.br\Date and Time Signed: 05/06/24 08:12 EDT 05-06-2024 Note Progress Note-Kimber zuñiga Patient: ELMER DURAN Age: 38 years Sex: [...] when meets criteria ( To home ). [facility] Comment on above: Result Comment: Elec tronically Signed By: Cipriano Hernandez Jr, DO.lizzie\Date and Time Signed: 05/06/24 08:11 EDT 05-05-2024 Note Colonoscopy Procedur e Report Patient: ELMER DURAN Age: 38 years Sex: Female : 1985 Associated Diagnoses: None Author: Van SEAMAN MD Pre-Procedure Procedure Date 05/04/2024 11:15:00 . Procedure Type: Colonoscopy. Procedure provider Performed by Van SEAMAN MD [facility] 05-04-2024 Note Colonoscopy Procedur e Report Patient: [...] for screening for malignant neoplasm of rectum ([id number] Z12.12, Discharge, Medical). Course: Progressing as expected. Recommendations: Repeat colonoscopy:: In 10 years. Follow-up:: in 1-2 weeks. Diet:: Regular diet. Medication resumption:: Continue current medications. Return to activities:: After 24 hours. Education and Follow-up: Counseled: Family. [facility] Comment on above: Other Comment: Harleen hunter Attachment - attachment storage system not supported [id number] Can be viewed in source systemMiGetNinjas Attachment - attachment storage system not supported [id number] Can be viewed in source systemMiGetNinjas Attachment - attachment storage system not supported [id number] Can be viewed in source system 05-04-2024 Hospital Discharge instructions Patient Education 05/04/2024 11:09:18 [facility] Patient Work/School Note(CUSTOM) Excuse from Work or School Activity Date: Please excuse from ___ . (Work, School, Physical Activity) He / She was at [facility] for procedure/medical tests/injury/illness and __ may [...] what activities are safe for you. Take ezin-vxz-fwvzxvt and prescription medicines only as told by [...] provider. Document Revised: 10/17/2022 Document Reviewed: 10/17/2022 Elsevier Patient Education 2023 [employer]. 05/04/2024 11:08:39 Hiatal Hernia Hiatal Hernia A [...] reduce GERD symptoms. Medicines. These may include: ?Bfkj-rij-ynxdxtd antacids. ?Medicines that make your stomach empty [...] may include: ?Fatty foods, like fried foods. ?[place] fruits, like oranges or lemon. ?Other foods [...] Do not drink alcohol. General instructions Take ikye-meq-cbgcwqd and prescription medicines only as told by [...] provider. Document Revised: 09/04/2022 Document Reviewed: 09/04/2022 [employer] Patient Education 2023 [employer]. 05/04/2024 11:06:50 Gastritis, Adult Gastritis, Adult Gastritis [...] medicines. These include steroids, antibiotics, and some uucc-zcc-xyympbt medicines, such as aspirin or ibuprofen. Having [...] Follow these instructions at home: Medicines Take shew-avp-vapvpds and prescription medicines only as told by [...] provider. Document Revised: 11/11/2021 Document Reviewed: 11/11/2021 [employer] Patient Education 2023 [employer]. 05/04/2024 11:06:45 Colonoscopy, Care After Surgery Salam [...] Up Care 04/23/2024 14:05:22 With:Van SEAMAN Address: [address] [place] [address], [facility] [address] [phone] (1) When:1 to 2 weeks [facility] 05-04-2024 Note Patient Education - Text Excuse from Work or School Activity Date: Please excuse from . (Work, School, Physical Activity) He / She was at [facility] for procedure/medical tests/injury/illness and __ may [...] activities are safe for you. ? Take kvdy-nku-kpvjwcn and prescription medicines only as told by [...] Document Revised: 10/17/2022 (more content not included)... [facility] 05-04-2024 Note History and Physical Patient: ELMER DURAN Age: 38 years Sex: Female : 1985 Associated Diagnoses: None Author: Van SEAMAN MD Subjective no changes to [facility] Comment on above: Result Comment: Elec tronically Signed By: Van SEAMAN MD\.br\Date and Time Signed: 05/04/24 11:00 EDT 04-23-2024 [...] mL (0.5 mg (more content not included)... [facility] Comment on above: Result Comment: Elec tronically Signed By: YUSUF CRONIN, Van Vargas.lizzie\Date and Time Signed: 04/23/24 14:15 EDT Evaluation + Plan note Future Appointments Appointment Date:05/04/2024 11:00:00 AM Scheduled Provider: Location:[facility] Appointment Type:Surgery [facility] [place] course Narrative No data available for this section [facility] Discharge instructions No data available for this section [facility] [place] Progress note No data available for this section [facility] [place] Summary Purpose Family History No Family History Records FoundNo Family History Records FoundNo Family History Records Found No data available for this section No data available for this section No Family History Records FoundNo Family History Records FoundNo Family History Records Found No data available for this section Advance Directives No Advanced Directives Records FoundNo Advanced Directives Records FoundNo Advanced Directives Records FoundNo Advanced Directives Records FoundNo Advanced Directives Records FoundNo Advanced Directives Records Found Additional Source Comments INFORMATION SOURCE (unrecogn ized section and content) DATE CREATED AUTHOR 03/04/2019 [facility] DATE CREATED AUTHOR AUTHOR'S ORGANIZ ATION 07/17/2022 [facility] DATE CREATED AUTHOR AUTHOR'S ORGANIZ ATION 07/06/2023 [facility] DATE CREATED AUTHOR AUTHOR'S ORGANIZ ATION 05/11/2024 Law Gallo [facility] DATE CREATED AUTHOR AUTHOR'S ORGANIZ ATION 05/16/2024 Law Jackson [facility] DATE CREATED AUTHOR AUTHOR'S ORGANIZ ATION 05/27/2024 [facility] Patient Care team informatio n (unrecognized section and content) Personnel Name: Dariana Page MD Address: Address: [address] [place] [address] Personnel Name: Dariana Page MD Address: Address: [address] [place] [address] Personnel Name: Dariana Paeg MD Address: Address: [address] [place] [address] FOR RECORDS PERTAINING TO PATIENTS WHO ARE [...] BE BASED ON THE PRIMARY CLINICAL RECORDS. [facility] [employer] provides no warranty or guarantee of the accuracy or completeness of information in this document.
== END 2024-10-01 15:40 | disposition home or self-care (01) ==
LOC: RAD 15:40
PROVIDERS: PCP Family Medicine; Visit Provider Family Medicine
DX: M25.552 Pain in left hip (principal)
CPT/HCPCS: 73502

== ENCOUNTER 2024-10-13 14:46 | Outpatient (RCR) | payer OTHER, SELFPAY | END 2024-10-14 11:33 | disposition home or self-care (01) | LOC: PT 14:46 | PROVIDERS: PCP Family Medicine; Visit Provider Family Medicine | DX: M25.552 Pain in left hip (principal) | CPT/HCPCS: 97161 ==

== ENCOUNTER 2024-10-15 14:39 | Outpatient (OUT) | payer OTHER, SELFPAY ==
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
== END 2024-10-15 14:40 | disposition home or self-care (01) ==
LOC: MRI 14:39
PROVIDERS: PCP Family Medicine; Visit Provider Family Medicine
DX: M25.552 Pain in left hip (principal)
CPT/HCPCS: 73721